=== PATIENT | male | born 1950 | race Caucasian/White ===

== ENCOUNTER 2022-06-26 08:06 | Outpatient (CLI) | payer MEDICARE, SELFPAY ==
--- OUTSIDE RECORDS SUMMARY | 2022-06-26 08:09 | XMS_ITS | Encounter Summary ---
:1950 Author Organization [place] Address [address] [place] [address] Care Team Providers Name Role Phone Joss Winchester MD Primary Care Provider Reason for Visit Rehab Therapy Cardiac Therapy (Routine) - Closed Specialty Diagnoses / Procedures Referred By Contact Refer red To Contact Cardiac Rehab / Diagnoses #3 no show on 03/29. lm to remind of next appt and attendance policy. ST elevation myocardial infarction (STEMI), unspecified artery [facility] C[facility] REH[facility] Procedures TREATMENT [address] [place] [address] [address] [place] [address] Phone: Fax: Referral ID Status Reason Start Date Expiration Date Visits V isits Requested Authorized [facility]- Closed 03/25/2015 08/24/2015 36 36 ([id number]) Encounter Details Date Type Department Care Team Description 04/25/2015 Hospital Encounter [facility] Mykel-Deana Kamara APRN CNP NO INFO AVAILABLE 06/13/2022 Cardiac and Pulmonary 2, Rh [facility] [place] [id number] [place] [address] [address] [place] [address] Social History Tobacco Use Types Packs/Day Years Used Date Smoking Tobacco: Former Cigarettes 1 Quit : 02/07/2015 Alcohol Use Standard Drinks/Week Comments No 0 (1 standard drink = 0.6 oz pure alcoho l) Sex Assigned at Date Recorded Not on file documented as of this encounter Last Filed Vital Signs Vital Sign Reading Time Taken Comments Blood Pressure - - Pulse - - Temperature - - Respiratory Rate - - Oxygen Saturation - - Inhaled Oxygen Concentration - - Weight 87.1 kg (192 lb) 04/25/2015 11:00 AM CDT Height 175.3 cm (5' 9.02) 04/25/2015 11:00 AM CDT Body Mass Index 28.34 04/25/2015 11:00 AM CDT documented in this encounter Medications at Time of Discharge Medication Sig Dispensed Refills Start Date End Date AMITRIPTYLINE HCL PO Take 25 mg by mouth 0 At Bedtime aspirin EC 81 MG EC Take 1 tablet (81 90 tablet 3 5 tabletIndications: ST mg) by mouth daily elevation myocardial infarction (STEMI), unspecified artery (H) nitroglycerin (NITROSTAT) Place 1 tablet (0.4 25 tablet 2 0 02/09/2015 0.4 MG SL mg) under the tabletIndications: ST tongue every 5 elevation myocardial minutes as needed infarction (STEMI), for chest pain unspecified artery (H) atorvastatin (LIPITOR) 40 Take 1 tablet (40 90 tablet 3 04/23/2016 MG tabletIndications: ST mg) by mouth every elevation myocardial evening infarction (STEMI), unspecified artery (H) carvedilol (COREG) 3.125 Take 1 tablet 180 tablet 3 02/10/20 15 05/11/2015 MG tabletIndications: ST (3.125 mg) by mouth elevation myocardial 2 times daily (with infarction (STEMI), meals) unspecified artery (H) lisinopril Take 1 tablet (5 90 tablet 3 02/09/2015 08/01/20 16 (PRINIVIL,ZESTRIL) 5 MG mg) by mouth daily tabletIndications: ST elevation myocardial infarction (STEMI), unspecified artery (H) ticagrelor (BRILINTA) 90 Take 1 tablet (90 60 tablet 01/2305/31/2015 MG tabletIndications: ST mg) by mouth every elevation myocardial 12 hours infarction (STEMI), unspecified artery (H) documented as of this encounter Progress Notes Senthil Mcdonald MD - 04/25/2015 11:41 AM CDT OUTPATIENT CARDIAC REHAB DISCHARGE SUMMARY Name: Neptali Sullivan Date of : 1950 Date of Treatment: 02/07/15 Age: [age] year old Gender: male Treatment Diagnosis: Myocardial Infarction Secondary Treatment Diagnosis: Stent (additional 3 stents placed 02/28/15) Hospital Location: [facility] Hospital Discharge Date: 02/09/15 Outpatient CR Start Date: 02/14/15 Primary Physician: Dr. Winchester Surgeon: Extruding Machine Operator: Dr. Reza Ejection Fraction: 45% THR (85% of age predicted max HR): 131.75 Risk Stratification: Moderate Assessment Assessment: Pt presents s/p DESx1 to OM. He is having a planned intervention to get 2 more stents inhis RCA and distal LAD on 02/28/15. He has had no symptoms since hospital discharge and is feeling great. Stressed importance of carrying nitro with him at all times. Pt to start cardiac rehab for safe progression of exercise and risk factor education. 02/24/15.PT is making steady progress. He will undergo and other PCI intervention on February 28 at [facility]. informed patient that rehab would need an order stating it is OK for him to return to the program and was instructed as to what to do. He plans to return to rehab on March 06. He is a bit distracted by his rotator cuff issue and related workman's comp and physical therapy. [facility] is holding on resistance training until patient consults with Physical Therapy about appropriateness of the exercises. 03/13/15 Progress update done today. PT had an additional 3 stents placed on 02/28/15. He has been feeling good since procedure. Angiogram report states that PT doeshave diffuse disease in small LAD and 40-50 % disease in RCA. Labs were rechecked on 02/28/15 Continue with skilled therapy for increased exercise capacity, risk factor education and behavior change counseling. He will have another echo in a month. He has been walking for just over 1 mile at home. He remains smoke free. He retired last week. 04/05/15 Patient is making good progress within cardiac rehab.He continues to try to make dietary changes to aid in weight loss. Patient increased frequency of home exercise to every day that he is not attending [facility]. He now walks for 20-60 minutes on his off days. Patient continues to benefit from skilled therapy to educate on behavior change and risk management to achieve patient's goals. Pt made significant gains in exercise tolerance. Initially patient tolerated 30 minutes at 3.4 METs,now tolerating 30 minutes at 6.6 METs.The PT was given instructions on frequency, intensity, and duration for continued exercise as well as muscle conditioning and stretching exercises. Your PT plans to continue with a home walking program. He purchased a TM for home use and plans to continue 4 days per week. Patient and Program Goals Monitored sessions attended: 23 MET Goal: 5-6 Current MET Level: 6.6 Goal Pt desires to lose 1-2# per week to reach goal weight of 182#. Target Date 04/25/15 Date Met Progress Towards Goal 02/24/15. PT weight is stable. He reports making a few dietary changes that include decreased sodium, more fish and chicken and less red meat. He states he does a little label reading and occasionally monitors portions. Noncommittal to attending education classes. 03/13/15 Discussed need for education on weight loss. PT feels he has had education in the past, and he knows what he needs to do to lose weight. He is reading food labels, and is working on cutting down on portion sizes and the amount of red meat he is eating. 04/05/15 Patient continues to cut red meat out of his diet.Patient verbalized understanding of healthy cooking options such as steaming vegetables and grilling meats. Patient still feels he has the tools and knowledge he needs to aid in weight loss. Goal Pt desires to increase endurance and stamina to return to walking 3-4 miles a day without symptoms. Target Date 04/25/15 Date Met 04/25/15 Progress Towards Goal 02/24/15. Notes some improvement in endurance. Currently he is walking at home every other day for about 20 minutes covering 1 mile. 03/13/15 PT had additional stents placed on 02/28/15. He has been increasing home walking and is walking over 1 mile at home. 04/05/15 Patient is now able to walk 3-4 miles without feeling sx. Pt reports that he takes these long walks 2-3 days per week. Pain Assessment Patient Currently in Pain: No Pain Location: Pain Rating: Pain Description: Pain Description Comment: Additional Pain Locations?: Pain Location 2: Pain Rating 2: Pain Location 3: Pain Rating 3: Pain Comments: RISK FACTORS Hypertension Hypertension: No Currently taking antihypertensives? Yes Target outcome goal: BP< 140/90 or <130/80 if DM or CKD Outcome Achieved Hypertension comments: Tobacco Tobacco: Recent (Quit < 6 mo ago) Quit date or planned quit date: 02/07/15 Tobacco habit: Cigarettes Tobacco use per day: Interventions planned: Interventions completed: Stages of change: Action Target outcome goal: Complete Smoking Cessation: Outcome Not Achieved Tobacco comments: 02/14 Pt quit smoking the day of his heart attack. he had been a cigarette smoker for about 25 years. He has no desire to return to smoking as of now. He is not using any smoking cessation aids at this point and does not want to use them right now. 02/24/15 Continues to be successful with smoking cessation. Confidence to stay quit is 06/03.03/13/15 No change. PT remains smoke free. t remains smoke free. Stress / Psychosocial Discharge Psychosocial assessment: Re-assessment Patient admits to stress: Yes Current level of stress: Moderate Coping skills: exercise, distraction Patient Health Questionnaire-9 (PHQ-9) for Depression: 5-9 Minimal symptoms 10-14 Minor depression 15-19 Major depression, moderately severe > 20 Major depression, severe Completed PHQ-9 Score: 8 [facility] Function and Health Status Survey: A score of 4-5 indicates deficit for each functional health domain Completed Physical Fitness: 3 Feelings: 3 Daily Activities: 4 Social Activities: 3 Pain: 4 Change in Health: 4 Overall Health: 4 Social Support: 1 Quality of Life: 4 Stages of change: Contemplation Psychosocial interventions planned: Patient to identify 2-3 coping mechanisms for stress, Patient toverbalize understanding of negative impact of stress to personal health Psychsocial interventions completed: Identified 2-3 coping mechanisms for stress, Verbalized understanding of negative impact of stress to personal health Target outcome goal: Assessment for depression using PhQ-9 and [facility] questionnaires. Maximize coping skills and develop positive support system: Outcome Not Achieved Comments: 02/14: Pt says he is under stress from his job. He had tore his rotator cuff and was supposed to go back to work on light duty over a year ago and they did not let him do just light duty so heended up tearing his rotator cuff again. He is now in a lawsuit with his employer and contemplating intermediate. He does not have any coping mechanisms he uses for stress at this time, and denies need for any at this point in time. 02/24/15. Denies stress. Admitted he is bothered by his work injury to his shoulder and dealing with worker's comp and physical therapy over the past 2 years. He has an arbitration meeting on February 28. 03/13/15 PT has decided to retire. He is now done with work. He also feels that lawsuit will be done soon, and both of these circumstances will help to reduce stress. 04/05/15 Patient continues to feel stressed. He recently retired and is now completing all of paperwork that goes along with the process. Patient said that he either exercises or uses distraction by playing with grandchildren when he feels stressed. 04/25/15 PT has retired, and feels stress levels wail be very well managed. Nutrition Discharge Dietary assessment: Re-assessment Rate Your Plate - Heart Survey: Scores range from 24 to 72. The higher the score the healthier the eating choices. 52 Overweight / Obesity: Yes Age: 64 Weight: 87.091 kg (192 lb) Height: 175.3 cm (5' 9.02) BMI (Calculated): 28.4 Goal weight: 82.645 kg (182 lb 3.2 oz) Prescribed diet: Low Sodium, Low Cholesterol, Low Fat Follows prescribed diet: 60 - 79% Stages of change to prescribed diet: Action Nutrition interventions planned: Educate on Weight Loss Principles, Initiate Plan for Weight Loss/Weight Maintenance, Assist with Weight Loss of 1-2 lb per week, Attend Diet Classes Nutrition interventions completed: Target outcome goal: BMI < 25: Outcome Not Achieved Comments: 02/14: Pt says he has made some changes to his diet since discharging from the hospital. Hewent grocery shopping yesterday and picked up fruits, vegetables, and fish. He is watching sodium intake and is actively trying to follow the mediterranean diet. He had done this s/p stent in 1998, butfell off of it after awhile because it got old. 02/24/15. See goals. 04/05/15 see goals section. Cholesterol Cholesterol: Labs Available Date: 02/28/15 Total Cholesterol: 164 HDL: 36 LDL: 87 Triglycerides: 203 Target outcome goal: Total cholesterol <150, HDL >40 M >50 F, LDL < 70, Trig < 150: Outcome Not Achieved Comments: 02/24/15. Did not review. 04/05/2015 Reviewed cholesterol values with patient. Patient verbalized understanding of the negative effects of high cholesterol values. 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 He is currently on light duty becauseof his shoulders, but he still walks 2-3 miles at work each night. He sometimes walks at home outside for exercise, but this is not always regular. 02/24/15. PT has started walking for exercise every other day for 20 minutes. 04/05/15 Pt now walks 20-60 minutes on his off days of rehab. INDIVIDUALIZED TREATMENT PLAN Monitored sessions scheduled: 18 Monitored sessions attended: 23 Exercise Reassessment Discharge 6 Minute Walk Distance: 6 Minute Walk Predicted (Male): 1765.05 6 Minute Walk Predicted (Female): 1513.16 Met Level Achieved: 6.6 Resting HR: 77 bpm Exercise HR: 99 bpm Post Exercise HR: 67 bpm Resting BP: 120/80 mmHg Exercise BP: 142/70 mmHg Post Exercise BP: 102/72 mmHg Pre SpO2: While Exercising SpO2: Post SpO2: Pre BG (if applicable): Post BG (if applicable): RPE: 5 ECG Rhythm: Normal sinus rhythm Ectopy: None Symptoms at home: Denies symptoms Symptoms in rehab: Denies symptoms Limitations: Pt has 5# limitation for both shoulders (h/o rotator cuff tears/repairs, will need eventual shoulder replacement) Exercise Prescription Type: Aerobic exercise, Flexibility training Mode: Treadmill, NuStep Frequency: 3 days week Duration/Time: 30-45 min Age: 64 THR (85% of age predicted max HR): 131.75 RPE recommended: Other (see comments) (4-6 OMNI) Progression: Progress up to 1/4 to 1/2 MET per week as BP, HR and tolerance allow. Angina with exercise: No Resistance Training: No Comments: 02/24/15. Hold on resistance training until cleared by physical therapy for rotator cuff injury. Current Home Exercise Type of Exercise: Walking Frequency (days per week): 3-4 (off days of rehab) Duration (minutes per session): 20-60 Recommended Home Exercise Prescription Type of Exercise: Walking Frequency (days per week): on days not at rehab Duration (minutes per session): 30-45 min RPE recommended: Other (see comments) (4-6 OMNI) Recommended THR: none given Comments/Exercise plan: Patient Education Education Attended: Physician cosignature/electronic signature indicates agreement with the ITP document and approval ofdischarge. documented in this encounter Plan of Treatment Not on filedocumented as of this encounter Visit Diagnoses Not on filedocumented in this encounter Care Teams Data Base Design Analyst Relationship Specialty Start Date End Date Joss Winchester MD PCP - General Internal Medicine 02/14/15 [facility] [place] [address] documented as of this encounter
--- OUTSIDE RECORDS SUMMARY | 2022-06-26 08:09 | XMS_ITS | Encounter Summary ---
:1950 Author Organization [place] Address [address] [place] [address] Care Team Providers Name Role Phone Joss Winchester MD Primary Care Provider Reason for Visit Rehab Therapy Cardiac Therapy (Routine) - Closed Specialty Diagnoses / Procedures Referred By Contact Refer red To Contact Cardiac Rehab / Diagnoses #3 no show on 03/29. lm to remind of next appt and attendance policy. ST elevation myocardial infarction (STEMI), unspecified artery [facility] CARDIAC REH[facility] Procedures TREATMENT [address] [place] [address] [address] [place] [address] Phone: Fax: Referral ID Status Reason Start Date Expiration Date Visits V isits Requested Authorized [facility]- Closed 03/25/2015 08/24/2015 36 36 ([id number]) Encounter Details Date Type Department Care Team Description 04/21/[address] [facility] Mykel-Deana Kamara APRN CNP NO INFO AVAILABLE 06/13/2022 Cardiac and Pulmonary 1, Rh Cardiac Rehab Rehabilitation [place] [id number] [place] [address] [address] [place] [address] Social History Tobacco Use Types Packs/Day Years Used Date Smoking Tobacco: Former Cigarettes 1 Quit : 02/07/2015 Alcohol Use Standard Drinks/Week Comments No 0 (1 standard drink = 0.6 oz pure alcoho l) Sex Assigned at Date Recorded Not on file documented as of this encounter Medications at Time of Discharge [...] 90 Take 1 tablet (90 60 tablet 11 01/2305/31/2015 MG tabletIndications: ST mg) by mouth every elevation myocardial 12 hours infarction (STEMI), unspecified artery (H) documented as of this encounter Plan of Treatment Not on filedocumented as of this encounter Visit Diagnoses Not on filedocumented in this encounter Care Teams Tub Mender Relationship Specialty Start Date End Date Joss Winchester MD PCP - General Internal Medicine 02/14/15 [place] [address] documented as of this encounter
--- OUTSIDE RECORDS SUMMARY | 2022-06-26 08:09 | XMS_ITS | Encounter Summary ---
:1950 Author Organization [place] Address [address] [place] [address] Care Team Providers Name Role Phone Joss Winchester MD Primary Care Provider Encounter Details Date Type Department Care Team Description 04/22/2016 Orders Only [facility] nary artery disease [facility] [place] involving saxman coronary [address] [facility] [address] rtery of saxman heart 140 [place] [address] Social History Tobacco Use Types Packs/Day Years Used Date Smoking Tobacco: Former Cigarettes 1 Quit : 02/07/2015 Alcohol Use Standard Drinks/Week Comments No 0 (1 standard drink = 0.6 oz pure alcoho l) Sex Assigned at Date Recorded Not on file documented as of this encounter Plan of Treatment Not on filedocumented as of this encounter Procedures Procedure Name Priority Date/Time Associated Diagnosis Comme nts LIPID PROFILE Routine 04/22/2016 4:24 PM Coronary artery Resul ts for this CDT disease involving procedure are in saxman coronary the results artery of saxman section. heart without angina pectoris ALT Routine 04/22/2016 4:24 PM Coronary artery Result s for this CDT disease involving procedure are in saxman coronary the results artery of saxman section. heart without angina pectoris BASIC METABOLIC Routine 04/22/2016 4:24 PM Coronary artery Res ults for this PANEL CDT disease involving procedure are in saxman coronary the results artery of saxman section. heart without angina pectoris documented in this encounter Results (ABNORMAL) Basic metabolic panel (04/22/2016 4:24 PM CDT) athologist Signature Sodium 138 133 - 144 [place] mmol/L [facility] Potassium 4.6 3.4 - 5.3 [place] mmol/L [facility] Chloride 105 94 - 109 [place] mmol/L [facility] Carbon Dioxide 30 20 - 32 [place] mmol/L [facility] Anion Gap 3 3 - 14 [place] mmol/L [facility] Glucose 104 (H) 70 - 99 [place] mg/dL [facility] Urea Nitrogen 9 7 - 30 [place] mg/dL [facility] Creatinine 0.90 0.66 - [place] 1.25 mg/dL [facility] GFR Estimate 85 >60 [place] mL/min/1.[address] Comment: Non GFR Calc GFR Estimate If Black >90 >60 mL/min/1.7m2 F [facility] [place][NOTE 2] GFR Calc HOSP ITAL Calcium 9.0 8.5 - 10.1 mg/dL [facility] Specimen Anatomical Collection Method Collection Time Receive d Time (Source) Location / / Volume Laterality Blood specimen 04/22/2016 4:24 PM 016 4:28 (specimen) CDT PM CDT Crystal Houston APRN, CNP LAB - BLOOD ORDERABLES Performing Organization Address City/State/ZIP Code Phon e Number M [facility] [address] [place], [place] [address] [place] [address] [address] [place] [address] [address], [facility] [phone] ALT (04/22/2016 4:24 PM CDT) P athologist Signature ALT 36 0 - 70 U/L [facility] Specimen Anatomical Collection Method Collection Time Receive d Time (Source) Location / / Volume Laterality Blood specimen 04/22/2016 4:24 PM 016 4:28 (specimen) CDT PM CDT Crystal Houston APRN, CNP LAB - BLOOD ORDERABLES Performing Organization Address City/[facility] Phon e Number [facility] [address] [place], [place] [address] [facility] [address] [place], [place] [address] [address], [facility] [phone] (ABNORMAL) Lipid Profile (04/22/2016 4:24 PM CDT) P athologist Signature Cholesterol 215 (H) <200 mg/dL [facility] Comment: Desirable: <200 mg/dl Triglycerides 321 (H) <150 mg/dL [facility] Comment: Borderline high: ??150-199 mg/dl High: ? 200-499 mg/dl Very high: ? >499 mg/dl HDL Cholesterol 33 (L) >39 mg/dL [facility] LDL Cholesterol Calculated 118 (H) <100 mg/dL [facility] Comment: Above desirable: ??100-129 mg/dl Borderline High: ??130-159 mg/dL High: ? 160-189 mg/dL Very high: ? >189 mg/dl Non HDL Cholesterol 182 (H) <130 mg/dL [facility] Comment: Above Desirable: ??130-159 mg/dl Borderline high: ??160-189 mg/dl High: ? 190-219 mg/dl Very high: ? >219 mg/dl Specimen Anatomical Collection Method Collection Time Receive d Time (Source) Location / / Volume Laterality Blood specimen 04/22/2016 4:24 PM 016 4:28 (specimen) CDT PM CDT Crystal Buck Celso JEAN RN PALLIATIVE LAB - BLOOD ORDERABLES Performing Organization Address City/State/ZIP Code Phon e Number M [facility] [address] [place] [address] [facility] [address] [phone] documented in this encounter Visit Diagnoses Diagnosis Coronary artery disease involving saxman coronary artery of saxman heart without angina pectoris documented in this encounter Care Teams Turfgrass Management Professor Relationship Specialty Start Date End Date Joss Winchester MD PCP - General Internal Medicine 02/14/15 [facility] [address] [facility] [address] documented as of this encounter
--- OUTSIDE RECORDS SUMMARY | 2022-06-26 08:09 | XMS_ITS | Encounter Summary ---
:1950 Author Organization [place] Address [address] [place] [address] Care Team Providers Name Role Phone Joss Winchester MD Primary Care Provider Reason for Visit Reason Onset Date Comments Refill Request 05/31/2015 Encounter Details Date Type Department Care Team Description 05/31/[address] [facility] Chan Seals, RN Refill Request Clinic [place] [address] [place] [address] Social History Tobacco Use Types Packs/Day Years Used Date Smoking Tobacco: Former Cigarettes 1 Quit : 02/07/2015 Alcohol Use Standard Drinks/Week Comments No 0 (1 standard drink = 0.6 oz pure alcoho l) Sex Assigned at Date Recorded Not on file documented as of this encounter Plan of Treatment Not on filedocumented as of this encounter Visit Diagnoses Diagnosis CAD (coronary artery disease) - Primary Coronary atherosclerosis of unspecified type of vessel, [place] or graft documented in this encounter Care Teams Senior Cobol Developer Relationship Specialty Start Date End Date Joss Winchester MD PCP - General Internal Medicine 02/14/15 [facility] [place] [address] documented as of this encounter
--- OUTSIDE RECORDS SUMMARY | 2022-06-26 08:09 | XMS_ITS | Encounter Summary ---
:1950 Author Organization [place] Address [address] [place] [address] Care Team Providers Name Role Phone Joss Winchester MD Primary Care Provider Reason for Visit Reason Onset Date Comments No Show 05/05/2018 - Closed Specialty Diagnoses / Procedures Referred By Contact Refer red To Contact Diagnoses Coronary artery disease involving chilkat coronary artery of chilkat heart without angina pectoris [place] January, [facility] REP [id number] [place] [id number] Referral ID Status Reason Start Date Expiration Date Visits Requ ested Visits Authorized [id number] Closed 04/22/2017 04/22/2018 1 1 Encounter Details Date Type Department Care Team Description 09/01/2017 Office Visit [facility] [place] January, [facility] REP [phone] [place] [id number] NO SHOW (Primary Dx) Heart Clinic Torres Reza MD [address] [place] [phone] [place] [address] Social History Tobacco Use Types Packs/Day Years Used Date Smoking Tobacco: Former Cigarettes 1 Quit : 02/07/2015 Alcohol Use Standard Drinks/Week Comments No 0 (1 standard drink = 0.6 oz pure alcoho l) Sex Assigned at Date Recorded Not on file documented as of this encounter Progress Notes Jessica More 05/05/2018 9:48 AM CDT This patient was a no show for this scheduled appointment. documented in this encounter Plan of Treatment Not on filedocumented as of this encounter Visit Diagnoses Diagnosis NO SHOW - Primary documented in this encounter Care Teams Transit Mix Operator Relationship Specialty Start Date End Date Joss Winchester MD PCP - General Internal Medicine 02/14/15 [facility] [place] [address] documented as of this encounter
--- OUTSIDE RECORDS SUMMARY | 2022-06-26 08:09 | XMS_ITS | Encounter Summary ---
:1950 Author Organization [facility] Address [address] [place] [address]. [place] [address] Care Team Providers Name Role Phone Joss Winchester MD Primary Care Provider Reason for Visit Reason Comments Annual Visit Annual visit w/Dr. Juaquin pantoja or CAD Coronary Artery Disease Encounter Details Date Type Department Care Team Description 11/07/2017 Office Visit [facility] Mel Reza, Mixed hyperlipidemia (Primary Dx); Heart Clinic Coronary artery disease involving [place] coronary artery of [place] heart without angina pectoris; [address] Smoker - former [id number] [facility] [address] [place] [address] Social History Tobacco Use Types Packs/Day Years Used Date Smoking Tobacco: Former Cigarettes 1 Quit : 02/07/2015 Smokeless Tobacco: Never Alcohol Use Standard Drinks/Week Comments No 0 (1 standard drink = 0.6 oz pure alcoho l) Sex Assigned at Date Recorded Not on file documented as of this encounter Last Filed Vital Signs Vital Sign Reading Time Taken Comments Blood Pressure 142/80 11/07/2017 7:30 AM CDT Pulse 80 11/07/2017 7:30 AM CDT Temperature - - Respiratory Rate - - Oxygen Saturation - - Inhaled Oxygen Concentration - - Weight 85.7 kg (189 lb) 11/07/2017 7:30 AM CDT Height 175.3 cm (5' 9) 11/07/2017 7:30 AM CDT Body Mass Index 27.91 11/07/2017 7:30 AM CDT documented in this encounter Progress Notes Mel Reza MD - 11/07/2017 8:20 AM CDT Service Date: 11/07/2017 HISTORY OF PRESENT ILLNESS: I got together with Naldo Bender today who is 67. Naldo was admitted in 01/2016 with unstable angina. He was found to have a thrombotic high-grade stenosis of his mid left circumflex followed by stenting of his LAD and RCA. Since that time he has taken his medicines faithfully. He stopped smoking and has really done a marvelous job of personal care. Naldo is single. He is not working because of degenerative arthritis and pain of his right shoulder. He denies chest pain, palpitations, shortness of breath, dizziness or syncope. He walks a couple miles a day year round and generally feels well when he does so. He gets his medications and lab work followed up at the [facility]. CURRENT MEDICATIONS: 1. Lisinopril 5 mg daily. 2. Atorvastatin 80 mg at bedtime. 3. Carvedilol 25 mg b.i.d. 4. Aspirin 81 mg a day. He also takes Ultram and amitriptyline. PHYSICAL EXAMINATION: GENERAL: Well-developed, well-nourished, faintly overweight male at 189 pounds. VITAL SIGNS: Blood pressure 140/80, heart rate 80. HEAD AND NECK: Normal. Carotids were equal, no bruits heard. HEART: Regular without gallop or murmur. LUNGS: Clear. ABDOMEN: Soft without organomegaly, mass or bruit. EXTREMITIES: Free of edema. Pedal pulses were not checked today. IMPRESSION: 1. Asymptomatic coronary artery disease. 2. Post 3-vessel coronary artery stenting. 3. Former smoker, having stopped in 2015. 4. Treated hyperlipidemia. 5. Mild ischemic cardiomyopathy, LVEF of 45% by echo in 2014. PLAN: I made no changes. I did not order any tests. I did not order any studies. I suggested he return in 2 years or as needed. [facility]. Over 35 minutes was spent doing the consult with review of old records, imaging. cc: Joss Winchester MD [facility] [address] [facility] [address] [place] [address] MEL REZA MD, FACC MT: ANASTACIA Name: NEPTALI SULLIVAN Account: [id number] : 1950 Service Date: 11/07/2017 Document: [id number] Mel Reza MD - 11/07/2017 7:45 AM CDT Hx CAD (STEMI), Stents-Left circumflex, staged procedure to mLAD and mRCA, Hyperlipidemia, Chronic Smoker, Mild ischemic CM, Metabolic Syndrome, and Mixed HLD. 11/07/17 Annual visit w/Dr. Reza for CAD, rescheduled from missed appt 09/01/17. BMP, FLP and ALT to be done prior to OV. No new testing or ER visits. Requested PMD records (Joss Winchester, from the [facility]). These records are now been scanned into [facility] Notes. Pt was originally scheduled to see on 06/13/17. FRANKLIN Arzate HPI and Plan: See dictation No orders of the defined types were placed in this encounter. No orders of the defined types were placed in this encounter. There are no discontinued medications. No diagnosis found. CURRENT MEDICATIONS: Current Outpatient Prescriptions Medication Sig Dispense Refill ??? lisinopril (PRINIVIL/ZESTRIL) 5 MG tablet Take 1 tablet (5 mg) by mouth daily 90 tablet 3 ??? atorvastatin (LIPITOR) 80 MG tablet Take 1 tablet (80 mg) by mouth every evening 90 tablet 3 ??? carvedilol (COREG) 25 MG tablet Take 1 tablet (25 mg) by mouth 2 times daily (with meals) 180 tablet 3 ??? traMADol (ULTRAM) 50 MG tablet Take 50 mg by mouth every 6 hours as needed for moderate pain ??? UNABLE TO FIND Volproic acid 250 MD ??? aspirin EC 81 MG EC tablet Take 1 tablet (81 mg) by mouth daily 90 tablet 3 ??? nitroglycerin (NITROSTAT) 0.[address] 1 tablet (0.4 mg) under the tongue every 5 minutes as needed for chest pain 25 tablet 2 ??? AMITRIPTYLINE HCL PO Take 25 mg by mouth At Bedtime ALLERGIES No Known Allergies PAST MEDICAL HISTORY: Past Medical History: Diagnosis Date ??? CAD (coronary artery disease) 2015 Stents ??? Cardiomyopathy (H) ??? Hyperlipidemia ??? Metabolic syndrome ??? Migraine ??? Smoker ??? STEMI (ST elevation myocardial infarction) (H) 2015 Inferior PAST SURGICAL HISTORY: Past Surgical History: Procedure Laterality Date ??? ORTHOPEDIC SURGERY ??? STENT, CORONARY, S660 02-07-15 Thrombectomy RIZWAN CX ??? STENT, CORONARY, S660 02-28-15 RIZWAN -LAD, RCA FAMILY HISTORY: Family History Problem Relation Age of Onset ??? Asthma Father SOCIAL HISTORY: Social History Social History ??? Marital status: Spouse name: N/A ??? Number of children: N/A ??? Years of education: N/A Social History Main Topics ??? Smoking status: Former Smoker Packs/day: 1.00 Quit date: 02/07/2015 ??? Smokeless tobacco: Never Used ??? Alcohol use No ??? Drug use: None ??? Sexual activity: Not Asked Other Topics Concern ??? Caffeine Concern No 1-2 coffee daily ??? Sleep Concern No ??? Special Diet No ??? Exercise Yes 3 days per week Social History Narrative Review of Systems: Skin: Negative for Eyes: Negative for ENT: Negative for Respiratory: Negative Cardiovascular: Negative Gastroenterology: Positive for Genitourinary: Negative for Musculoskeletal: Positive for arthritis;neck pain Neurologic: Positive for migraine headaches Psychiatric: Heme/Lymph/Imm: Negative for Endocrine: Negative Physical Exam: Vitals: BP 142/80 Pulse 80 Ht 1.753 m (5' 9) Wt 85.7 kg (189 lb) BMI 27.91 kg/m2 Constitutional: cooperative;in no acute distress Skin: warm and dry to the touch Head: normocephalic Eyes: pupils equal and round;sclera white Lymph: ENT: no pallor or cyanosis Neck: JVP normal Respiratory: clear to auscultation;normal symmetry Cardiac: regular rhythm;normal S1 and S2;no murmurs, gallops or rubs detected S4 no presence of murmur pulses full and equal 2+ 2+ right femoral puncture site without bleed/bruit. soft small hematoma around site GI: abdomen soft;no masses;non-tender Extremities and Muscular Skeletal: no edema right radial pulse palpable without audible bruit Neurological: affect appropriate Psych: oriented to time, person and place Recent Lab Results: LIPID RESULTS: Lab Results Component Value Date CHOL 215 (H) 04/22/2016 HDL 33 (L) 04/22/2016 LDL 118 (H) 04/22/2016 TRIG 321 (H) 04/22/2016 CHOLHDLRATIO 4.6 03/08/2015 LIVER ENZYME RESULTS: Lab Results Component Value Date AST 21 02/07/2015 ALT 36 04/22/2016 CBC RESULTS: Lab Results Component Value Date WBC 4.9 03/01/2015 RBC 4.49 03/01/2015 HGB 13.5 03/01/2015 HCT 39.9 (L) 03/01/2015 MCV 89 03/01/2015 MCH 30.1 03/01/2015 MCHC 33.8 03/01/2015 RDW 15.0 03/01/2015 PLT 216 03/01/2015 BMP RESULTS: Lab Results Component Value Date NA 138 08/22/2016 POTASSIUM 4.3 08/22/2016 CHLORIDE 103 08/22/2016 CO2 28 08/22/2016 ANIONGAP 7 08/22/2016 GLC 103 (A) 08/22/2016 BUN 11 08/22/2016 CR 1.0 08/22/2016 GFRESTIMATED >60 08/22/2016 GFRESTBLACK >90 GFR Calc 04/22/2016 LUCRECIA 9.3 08/22/2016 A1C RESULTS: No results found for: A1C INR RESULTS: Lab Results Component Value Date INR 0.95 02/27/2015 INR 0.90 02/07/2015 CC Joss Winchester MD [facility] [place] [id number] documented in this encounter Plan of Treatment Not on filedocumented as of this encounter Visit Diagnoses Diagnosis Mixed hyperlipidemia - Primary Coronary artery disease involving [place] coronary artery of [place] heart without angina pectoris Smoker - former Tobacco use disorder documented in this encounter Care Teams Chipping Machine Operator Relationship Specialty Start Date End Date Joss Winchester MD PCP - General Internal Medicine 02/14/15 [facility] [place] [id number] documented as of this encounter
--- OUTSIDE RECORDS SUMMARY | 2022-06-26 08:09 | XMS_ITS | Encounter Summary ---
:1950 Author Organization [place] Address [address] [place] [address]. [place] [address] Care Team Providers Name Role Phone Joss Winchester MD Primary Care Provider Encounter Details Date Type Department Care Team Description 08/29/2017 Documentation Only [facility] Heart Torres Perkins MD [address] [place] [phone] (Wo rk) Social History Tobacco Use Types Packs/Day Years [...] on filedocumented in this encounter Care Teams Rotary Filter Operator Relationship Specialty Start Date End Date Joss Winchester MD PCP - General Internal Medicine 02/14/15 [facility] [place] [id number] documented as of this encounter
--- OUTSIDE RECORDS SUMMARY | 2022-06-26 08:09 | XMS_ITS | Encounter Summary ---
:1950 Author Organization [facility] Address [address] [place] [address]. [place] [address] Care Team Providers Name Role Phone Joss Winchester MD Primary Care Provider Reason for Visit Reason Comments Other lipids needed after statin i ncreased in March 2016. Encounter Details Date Type Department Care Team Description 09/24/2016 Documentation Only [facility] Servando Abbott (lipids needed Heart Clinic Yulisa Buck RN after statin [address] [facility] [phone] increase. .. [facility] [address] (Fax) [place] [address] Social History Tobacco Use Types Packs/Day Years Used Date Smoking Tobacco: Former Cigarettes 1 Quit : 02/07/2015 Alcohol Use Standard Drinks/Week Comments No 0 (1 standard drink = 0.6 oz pure alcoho l) Sex Assigned at Date Recorded Not on file documented as of this encounter Progress Notes Malina Watts RN - 09/25/2016 10:09 AM CST Phone call received from Shane, [facility]. States that [facility]. He did have BMP's. Will send the last BMP results. Patient called. States he was sure they must have done that lab prior to his shoulder surgery. [facility] that [facility] and that this was needed to assess how the increase in thehe statin in March 2016. Stated he will have a f/u OV with his PMD at the [facility] in about 8 days. He will see if they will do theLipids and ALT and to send us the results. If they need an order, gave him our phone number to call and we will fax them the order. Verbalized understanding. IER GREETER Alicia Abbott RN - 09/24/2016 3:34 PM CST Overdue orders: lipids were due in June, per dictation patient to have at the [facility]. Faxed records request. Order date extended. IER GREETER documented in this encounter Plan of Treatment Not on filedocumented as of this encounter Visit Diagnoses Not on filedocumented in this encounter Care Teams Seconds Handler Relationship Specialty Start Date End Date Joss Winchester MD PCP - General Internal Medicine 02/14/15 [facility] [place] [id number] documented as of this encounter
--- OUTSIDE RECORDS SUMMARY | 2022-06-26 08:09 | XMS_ITS | Clinical Summary ---
:1950 Author Organization [place] Address [address] [place] [address] Care Team Providers Name Role Phone Joss Winchester MD Primary Care Provider Allergies No known active allergies Medications Medication Sig Dispensed Refills Start Date End Date Status AMITRIPTYLINE HCL PO Take 25 mg by 0 Active mouth At Bedtime aspirin EC 81 MG EC Take 1 tablet 90 tablet 3 02/09/2015 Active tabletIndications: ST (81 mg) by mouth elevation myocardial daily infarction (STEMI), unspecified artery (H) nitroglycerin Place 1 tablet 25 tablet 2 02/09/2015 Active (NITROSTAT) 0.4 MG SL (0.4 mg) under tabletIndications: ST the tongue every elevation myocardial 5 minutes as infarction (STEMI), needed for chest unspecified artery (H) pain traMADol (ULTRAM) 50 MG Take 50 mg by 0 Active tablet mouth every 6 hours as needed for moderate pain UNABLE TO FIND Volproic acid 0 A ctive 250 lisinopril Take 1 tablet (5 90 tablet 3 08/01/2016 A ctive (PRINIVIL/ZESTRIL) 5 MG mg) by mouth tabletIndications: ST daily elevation myocardial infarction (STEMI), unspecified artery (H) atorvastatin (LIPITOR) Take 1 tablet 90 tablet 3 08/01/2016 Active 80 MG (80 mg) by mouth tabletIndications: ST every evening elevation myocardial infarction (STEMI), unspecified artery (H) carvedilol (COREG) 25 Take 1 tablet 180 tablet 3 08/01/2016 Active MG tabletIndications: (25 mg) by mouth ST elevation myocardial 2 times daily infarction (STEMI), (with meals) unspecified artery (H), Atherosclerosis of [place] coronary artery of [place] heart without angina pectoris Active Problems Problem Noted Date Atherosclerosis of [place] coronary artery of [place] he art without angina 05/08/2015 pectoris Percutaneous transluminal coronary angioplasty (PTCA) within last 14 to 24 03/01/2015 months Hematoma following angiography 02/28/2015 STEMI (ST elevation myocardial infarction) 02/08/2015 CAD (coronary artery disease) Hyperlipidemia Smoker - former Metabolic syndrome Immunizations Name Administration Dates Next Due Pneumococcal 23 valent 02/09/2015 Family History Medical History Relation Comments Asthma Father Relation Status Comments Father (Age 61) asthma Mother (Age 58) hep C Social History Tobacco Use Types Packs/Day Years Used Date Smoking Tobacco: Former Cigarettes 1 Quit : 02/07/2015 Smokeless Tobacco: Never Tobacco Cessation: Counseling Given: Yes Alcohol Use Standard Drinks/Week Comments No 0 (1 standard drink = 0.6 oz pure alcoho l) Sex Assigned at Date Recorded Not on file Last Filed Vital Signs Vital Sign Reading Time Taken Comments Blood Pressure 142/80 11/07/2017 7:30 AM CDT Pulse 80 11/07/2017 7:30 AM CDT Temperature 36.6 ??C (97.9 ??F) 03/01/2015 8:00 AM CDT Respiratory Rate 19 03/01/2015 9:00 AM CDT Oxygen Saturation 97% 08/01/2016 10:01 AM TWENTY ONE DEALER Inhaled Oxygen Concentration - - Weight 85.7 kg (189 lb) 11/07/2017 7:30 AM CDT Height 175.3 cm (5' 9) 11/07/2017 7:30 AM CDT Body Mass Index 27.91 11/07/2017 7:30 AM CDT Plan of Treatment Not on file Insurance Payer Benefit Plan Subscriber ID Effective Phone Address Typ e / Group Dates MEDICARE MEDICARE [id number] 2014-Alan [phone] ATTN CLAIM S Medicare nt [address] [place] [address] [employer]CIAL [employer] [id number] 2015-Alan DAUGHERTY In [facility] CLAIMS [employer] [place], [place] [address] Care Teams Assembler Truck Trailer Relationship Specialty Start Date End Date Joss Winchester MD PCP - General Internal Medicine 02/14/15 [facility] [place] [id number]
--- OUTSIDE RECORDS SUMMARY | 2022-06-26 08:09 | XMS_ITS | Encounter Summary ---
:1950 Author Organization [facility] Address [address] [place] [address] Care Team Providers Name Role Phone Joss Winchester MD Primary Care Provider Reason for Visit Reason Comments Other Encounter Details Date Type Department Care Team Description 11/28/2015 Telephone [facility] Chan Seals, RN [address] [place] [address] Social History Tobacco Use Types Packs/Day Years Used Date Smoking Tobacco: Former Cigarettes 1 Quit : 02/07/2015 Alcohol Use Standard Drinks/Week Comments No 0 (1 standard drink = 0.6 oz pure alcoho l) Sex Assigned at Date Recorded Not on file documented as of this encounter Miscellaneous Notes Telephone Encounter - Chan Seals, RN - 11/30/2015 10:17 AM CDT Patient returned call.He is having MRI on shoulder and was told they could not do this because of his stents. I told him that stents are compatible with MRI imaging. He was relieved to know this and will call his PMD back about this. Franklin Whitley Telephone Encounter - Chan Seals RN - 11/28/2015 2:06 PM CDT Left message with patient delvin;l team 3 at either [phone] or [phone] to discuss his question concerningMRI. I reviewed chart and see no future orders or notes regarding this. He is past due to see Dr. Reza ( 10/2015). FRANKLIN Whitley Telephone Encounter - Chan Seals RN - 11/28/2015 2:06 PM CDT ----- Message from Christal Lazar RN sent at 11/28/2015 1:57 PM CDT ----- Regarding: Questions regarding MRI Yan bañuelos- I got a VM on CORE phone number from this patient. He see's Dr. Reza and Crystal Houston NP.He said he had questions on a MRI. Last saw Dr. Reza in the fall. I see no orders for MRI and no notes in EPIC. Can you call him please. I am not sure how he got CORE line. Thanks! documented in this encounter Plan of Treatment Not on filedocumented as of this encounter Visit Diagnoses Not on filedocumented in this encounter Care Teams Rehab Services Aide Relationship Specialty Start Date End Date Joss Winchester MD PCP - General Internal Medicine 02/14/15 [facility] [place] [id number] documented as of this encounter
--- OUTSIDE RECORDS SUMMARY | 2022-06-26 08:09 | XMS_ITS | Encounter Summary ---
:1950 Author Organization [facility] Address [address] [place] [address]. [place] [address] Care Team Providers Name Role Phone Joss Winchester MD Primary Care Provider Reason for Visit Reason Onset Date Comments Previsit 07/29/2016 Encounter Details Date Type Department Care Team Description 07/29/2016 PRE VISIT [facility] Heart Torres Reza MD Previsit Clinic [address] [address] [place] [address] [address] [place] [address] [phone] Social History Tobacco Use Types Packs/Day Years [...] on filedocumented in this encounter Care Teams Property Staff Accountant Relationship Specialty Start Date End Date Joss Winchester MD PCP - General Internal Medicine 02/14/15 [facility] [place] [id number] documented as of this encounter
--- OUTSIDE RECORDS SUMMARY | 2022-06-26 08:09 | XMS_ITS | Encounter Summary ---
:1950 Author Organization [place] Address [address] [place] [address] Care Team Providers Name Role Phone Joss Winchester MD Primary Care Provider Encounter Details Date Type Department Care Team Description 11/11/2016 Orders Only [facility], Provider CAD (c oronary artery [facility] [place] Not In disease) (Primary Dx) Laboratory [address] [facility] [address] [place] [address] Social History Tobacco Use Types Packs/Day Years [...] Name Priority Date/Time Associated Diagnosis Comme nts BASIC METABOLIC PANEL Routine 08/22/2016 Result s for this procedure are i n the results section . documented in this encounter Results (ABNORMAL) Basic metabolic panel (08/22/2016) [facility] Method Time Signature Sodium 138 136 - 145 [facility] mmol/L [facility] Potassium 4.3 3.5 - 5.0 [facility] mmol/L [facility] Chloride 103 103 mmol/L [facility] Carbon Dioxide 28 21 - 32 [facility] mmol/L [facility] Anion Gap 7 5 - 15 [facility] mmol/L [facility] Glucose 103 (A) 70 - 99 [facility] mg/dL [facility] Urea Nitrogen 11 8 - 26 [facility] mg/dL [facility] Creatinine 1.0 0.7 - 1.2 [facility] mg/dL [facility] Calcium 9.3 8.5 - 10.1 [facility] mg/dL [facility] GFR Estimate >60 >60 [facility] ml/min/1.[address] GFR Estimate If ml/min/1.7 [facility] Black [address] [place] [address] Specimen (Source) Anatomical Location Collection Method / Collectio n Time Received Time / Laterality Volume Blood specimen 08/22/2016 (specimen) Patient Reported LAB - BLOOD ORDERABLES Performing Organization Address City/State/[place] [address] documented in this encounter Visit Diagnoses Diagnosis CAD (coronary artery disease) - Primary Coronary atherosclerosis of unspecified type of vessel, [place] or graft documented in this encounter Care Teams Bean Sorter Relationship Specialty Start Date End Date Joss Winchester MD PCP - General Internal Medicine 02/14/15 [facility] [address] documented as of this encounter
--- OUTSIDE RECORDS SUMMARY | 2022-06-26 08:09 | XMS_ITS | Encounter Summary ---
:1950 Author Organization [facility] Address [address] [place] [id number] Care Team Providers Name Role Phone Joss Winchester MD Primary Care Provider Reason for Visit Reason Comments Heart Problem CAD (STEMI), Stents-Left cir cumflex, LAD and RCA, Hyperlipidemia, Chronic Smoker, Mild CM (res olved), Metabolic Syndrome, and HLD. - Closed Specialty Diagnoses / Procedures Referred By Contact Refer red To Contact Diagnoses ST elevation myocardial infarction (STEMI), unspecified artery (H) Coronary artery disease involving klawock coronary artery of klawock heart without angina pectoris Mixed hyperlipidemia Tobacco abuse Torres Reza MD [address] [place] [phone] Referral ID Status Reason Start Date Expiration Date Visits Requ ested Visits Authorized [id number] Closed 02/05/2016 02/04/2017 1 1 Encounter Details Date Type Department Care Team Description 04/22/2016 Office Visit [facility] Torres Reza MD [address] [place] [phone] [address] elevation myocardial infarction (STEM I), unspecified artery (H); [facility], JanuaryN TELEPHONER [address] [place] [address] Coronary artery disease involving klawock coronary artery of klawock heart without angina pectoris; [place] Mixed hyperlipidemia; [address] [facility] Tobacco abuse [address] [place] [phone] Social History Tobacco Use Types Packs/Day Years Used Date Smoking Tobacco: Former Cigarettes 1 Quit : 02/07/2015 Tobacco Cessation: Counseling Given: Yes Alcohol Use Standard Drinks/Week Comments No 0 (1 standard drink = 0.6 oz pure alcoho l) Sex Assigned at Date Recorded Not on file documented as of this encounter Last Filed Vital Signs Vital Sign Reading Time Taken Comments Blood Pressure 118/80 04/22/2016 3:38 PM CDT Pulse 71 04/22/2016 3:38 PM CDT Temperature - - Respiratory Rate - - Oxygen Saturation 99% 04/22/2016 3:38 PM CDT Inhaled Oxygen Concentration - - Weight 86.2 kg (190 lb) 04/22/2016 3:38 PM CDT Height 175.3 cm (5' 9) 04/22/2016 3:38 PM CDT Body Mass Index 28.06 04/22/2016 3:38 PM CDT documented in this encounter Progress Notes Crystal Houston, TED TELEPHONER - 04/22/2016 4:20 PM CDT HISTORY OF PRESENT ILLNESS: This is a 65-year-old male who presents to [facility] today for a followup visit. He is a patient of Dr. Reza seen in our clinic for coronary artery disease, cardiomyopathy and hyperlipidemia. Neptali suffered an inferior lateral myocardial infarction and underwent stenting to the mid circumflex vessel in 01/2015. In 02/2015, he underwent staged stenting to his LAD and right coronary artery.Since then, he has done well in followup. In 03/2015, echocardiogram demonstrated left ventricular ej ection fraction of 45% percent with inferolateral, lateral and septal hypokinesia. Over this past year, there has been no evidence of heart failure. Fortunately, Neptali was able to give up tobacco at the time of this myocardial infarction. He returns today for an annual office visit. Naldo tells me he is doing well. He is quite active, exercising on a recumbent bike and elliptical desiree hour each day. He denies any chest pain or shortness of breath with activity or at rest. He denies palpitations or near-syncope. Occasionally, he does admit to some positional lightheadedness. Overall, as the year has gone on, these have become less frequent. He tells me his energy is good. He denies orthopnea or peripheral edema. PHYSICAL EXAMINATION: His blood pressure today is 118/86, heart rate is 71 beats per minute and is regular. His lungs are clear. There is no peripheral edema. His weight is down to 190 pounds. He tellsme he has been able to stay off cigarettes. IMPRESSION AND PLAN: 1. Coronary artery disease. History of previous inferior lateral myocardial infarction and stenting to the mid-circumflex vessel in 01/2015. Subsequent staged stenting to his LAD and right coronary artery in 02/2015. Today, he is free from any angina symptoms and doing well in followup. It has been over 1 year since his myocardial infarction. He will discontinue Plavix at this time and have him remain on aspirin, beta blockade and CAMMIE inhibitor therapy. 2. Ischemic cardiomyopathy. Left ventricular ejection fraction of 45%. There are no significant signs and symptoms of heart failure. We will continue current medical regimen. I have advised low-sodium foods and to notify our clinic with any weight gain or shortness of breath. 3. Hyperlipidemia. 4. He has been on atorvastatin. He tells me he has come in fasting today, and we will draw an annuallipid panel and BMP. Thank you for allowing me to participate in this patient's care. Otherwise, we will have him follow up with Dr. Reza next year. CRYSTAL HOUSTON APRN, CNP MT: JOAQUIM Name: NEPTALI SULLIVAN MRN: [id number] Account: [id number] : 1950 Service Date: 04/22/2016 Document: [id number] Crystal Houston APRN CNP - 04/22/2016 4:15 PM CDT HPI and Plan: #[id number] See dictation Orders Placed This Encounter Procedures ??? Lipid Profile ??? ALT ??? Basic metabolic panel Orders Placed This Encounter Medications ??? traMADol (ULTRAM) 50 MG tablet Sig: Take 50 mg by mouth every 6 hours as needed for moderate pain ??? carvedilol (COREG) 25 MG tablet Sig: Take 25 mg by mouth 2 times daily (with meals) ??? UNABLE TO FIND Sig: Volproic acid 250 MD Medications Discontinued During This Encounter Medication Reason ??? metoprolol (TOPROL-XL) 25 MG 24 hr tablet Therapy completed ??? clopidogrel (PLAVIX) 75 MG tablet Encounter Diagnoses Name Primary? ST elevation myocardial infarction (STEMI), unspecified artery (H) ??? Coronary artery disease involving klawock coronary artery of klawock heart without angina pectoris ??? Mixed hyperlipidemia ??? Tobacco abuse CURRENT MEDICATIONS: Current Outpatient Prescriptions Medication Sig Dispense Refill ??? traMADol (ULTRAM) 50 MG tablet Take 50 mg by mouth every 6 hours as needed for moderate pain ??? carvedilol (COREG) 25 MG tablet Take 25 mg by mouth 2 times daily (with meals) ??? UNABLE TO FIND Volproic acid 250 MD ??? aspirin EC 81 MG EC tablet Take 1 tablet (81 mg) by mouth daily 90 tablet 3 ??? nitroglycerin (NITROSTAT) 0.[address] 1 tablet (0.4 mg) under the tongue every 5 minutes as needed for chest pain 25 tablet 2 ??? atorvastatin (LIPITOR) 40 MG tablet Take 1 tablet (40 mg) by mouth every evening 90 tablet 3 ??? lisinopril (PRINIVIL,ZESTRIL) 5 MG tablet Take 1 tablet (5 mg) by mouth daily 90 tablet 3 ??? AMITRIPTYLINE HCL PO Take 25 mg by mouth At Bedtime ALLERGIES No Known Allergies PAST MEDICAL HISTORY: Past Medical History Diagnosis Date ??? STEMI (ST elevation myocardial infarction) (H) 2015 Inferior ??? CAD (coronary artery disease) 2015 Stents ??? Hyperlipidemia ??? Smoker ??? Migraine ??? Metabolic syndrome ??? Cardiomyopathy (H) PAST SURGICAL HISTORY: Past Surgical History Procedure Laterality Date ??? Orthopedic surgery ??? Stent, coronary, s660 02-07-15 Thrombectomy RIZWAN CX ??? Stent, coronary, s660 02-28-15 RIZWAN -LAD, RCA FAMILY HISTORY: Family History Problem Relation Age of Onset ??? Asthma Father SOCIAL HISTORY: Social History Social History ??? Marital Status: Spouse Name: N/A ??? Number of Children: N/A ??? Years of Education: N/A Social History Main Topics ??? Smoking status: Former Smoker -- 1.00 packs/day Quit date: 02/07/2015 ??? Smokeless tobacco: None ??? Alcohol Use: No ??? Drug Use: None ??? Sexual Activity: Not Asked Other Topics Concern ??? Caffeine Concern No 1-2 coffee daily ??? Sleep Concern No ??? Special Diet No ??? Exercise Yes 3 days per week Social History Narrative Review of Systems: Skin: Positive for bruising Eyes: Positive for glasses ENT: Positive for hearing loss Respiratory: Negative Cardiovascular: lightheadedness;Positive for little bit Gastroenterology: Positive for heartburn;reflux Genitourinary: Negative Musculoskeletal: Positive for joint pain shoulders Neurologic: Positive for migraine headaches Psychiatric: Positive for excessive stress Heme/Lymph/Imm: Positive for easy bruising Endocrine: Negative Physical Exam: Vitals: BP 118/80 mmHg Pulse 71 Ht 1.753 m (5' 9) Wt 86.183 kg (190 lb) BMI 28.05 kg/m2 SpO2 99% Constitutional: cooperative;in no acute distress Skin: warm and dry to the touch Head: normocephalic Eyes: pupils equal and round;sclera white ENT: no pallor or cyanosis, dentition good Neck: JVP normal Chest: clear to auscultation;normal symmetry Cardiac: regular rhythm;normal S1 and S2;no murmurs, gallops or rubs detected S4 no presence of murmur Abdomen: abdomen soft;BS normoactive Vascular: pulses full and equal Extremities and Back: no edema right radial pulse palpable without audible bruit Neurological: no gross motor deficits;affect appropriate, oriented to time, person and place CC Torres Reza MD [facility] [address] [place] [phone] documented in this encounter Plan of Treatment Not on filedocumented as of this encounter Results (ABNORMAL) Basic metabolic panel (04/22/2016 4:24 PM CDT) athologist Signature Sodium 138 133 - 144 [place] mmol/L [facility] Potassium 4.6 3.4 - 5.3 [place] mmol/L [facility] Chloride 105 94 - 109 [place] mmol/L [facility] Carbon Dioxide 30 20 - 32 [place] mmol/L [facility] Anion Gap 3 3 - 14 [place] mmol/L [facility] Glucose 104 (H) 70 - 99 [place] mg/dL [facility] Urea Nitrogen 9 7 - 30 [place] mg/dL [facility] Creatinine 0.90 0.66 - NO[place] 1.25 mg/dL [facility] GFR Estimate 85 >60 [place] mL/min/1.[address] Comment: Non GFR Calc GFR Estimate If Black >90 >60 mL/min/1.7m2 F [facility] GFR Calc HOSP ITAL Calcium 9.0 8.5 - 10.1 mg/dL [facility] Specimen Anatomical Collection Method Collection Time Receive d Time (Source) Location / / Volume Laterality Blood specimen 04/22/2016 4:24 PM 016 4:28 (specimen) CDT PM CDT Crystal Houston APRN, CNP LAB - BLOOD ORDERABLES Performing Organization Address City/[facility]/ZIP Code Phon e Number [facility] [address] [place], [place] [address] [place] [address] [address] [address], [facility] [phone] ALT (04/22/2016 4:24 PM CDT) athologist Signature ALT 36 0 - 70 U/L [facility] Specimen Anatomical Collection Method Collection Time Receive d Time (Source) Location / / Volume Laterality Blood specimen 04/22/2016 4:24 PM 016 4:28 (specimen) CDT PM CDT Crystal Houston APRN, CNP LAB - BLOOD ORDERABLES Performing Organization Address City/[facility] Phon e Number [facility] [address], [place] [address] [facility] [address], [place] [address], [facility] [phone] (ABNORMAL) Lipid Profile (04/22/2016 4:24 PM CDT) P athologist Signature Cholesterol 215 (H) <200 mg/dL [facility] Comment: Desirable: <200 mg/dl Triglycerides 321 (H) <150 mg/dL [facility] Comment: Borderline high: ??150-199 mg/dl High: ? 200-499 mg/dl Very high: ? >499 mg/dl HDL Cholesterol 33 (L) >39 mg/dL [facility] LDL Cholesterol Calculated 118 (H) <100 mg/dL [facility] Comment: Above desirable: ??100-129 mg/dl Borderline High: ??130-159 mg/dL High: ? 160-189 mg/dL Very high: ? >189 mg/dl Non HDL Cholesterol 182 (H) <130 mg/dL [facility] Comment: Above Desirable: ??130-159 mg/dl Borderline high: ??160-189 mg/dl High: ? 190-219 mg/dl Very high: ? >219 mg/dl Specimen Anatomical Collection Method Collection Time Receive d Time (Source) Location / / Volume Laterality Blood specimen 04/22/2016 4:24 PM 016 4:28 (specimen) CDT PM CDT Crystal Buck Celso JEAN TELEPHONER LAB - BLOOD ORDERABLES Performing Organization Address City/State/ZIP Code Phon e Number [facility] [address] [address] [facility] [address] [phone] documented in this encounter Visit Diagnoses Diagnosis ST elevation myocardial infarction (STEM I), unspecified artery (H) Coronary artery disease involving klawock coronary artery of klawock heart without angina pectoris Mixed hyperlipidemia Tobacco abuse Tobacco use disorder documented in this encounter Care Teams Sorter Packer Relationship Specialty Start Date End Date Joss Winchester MD PCP - General Internal Medicine 02/14/15 [facility] [place] [id number] documented as of this encounter
--- OUTSIDE RECORDS SUMMARY | 2022-06-26 08:09 | XMS_ITS | Encounter Summary ---
:1950 Author Organization [facility] Address [facility] [place] [address] Care Team Providers Name Role Phone Joss Winchseter MD Primary Care Provider Reason for Referral - Closed Specialty Diagnoses / Procedures Referred By Contact Refer red To Contact Diagnoses ST elevation myocardial infarction (STEMI), unspecified artery (H) Coronary artery disease involving [place] coronary artery of [place] heart without angina pectoris Mixed hyperlipidemia Tobacco abuse Mel Reza MD [address] [facility] [address] [place] [phone] Referral ID Status Reason Start Date Expiration Date Visits Requ ested Visits Authorized [id number] Closed 02/05/2016 02/04/2017 1 1 Reason for Visit Reason Comments Heart Problem F/u Last saw Tracy SHOE CLEANER 03/08/15 , See d/c summ post angio 02/09/15. Saw pt in hosp 02/07 Review echo 03/25 4 angelica rn - Closed Specialty Diagnoses / Procedures Referred By Contact Refer red To Contact Diagnoses ST elevation myocardial infarction (STEMI), unspecified artery (H) Deana Reeves APRN SOCCER REFEREE NO INFO AVAILABLE 06/13/2022 Referral ID Status Reason Start Date Expiration Date Visits Requ ested Visits Authorized [id number] Closed 03/28/2015 09/24/2015 1 1 Encounter Details Date Type Department Care Team Description 05/11/2015 Office Visit [facility] Mel Reza, CAD (c oronary artery disease) (Primary Dx); Heart Clinic MD ST elevation myocardial infarction (STEM I), unspecified artery (H); [place] [address] Mixed hyperlipidemia; [address] [facility] [address] Tobacco abuse [address] [place] [phone] Social History Tobacco Use [...] Sign Reading Time Taken Comments Blood Pressure 126/64 05/11/2015 10:04 AM CDT Pulse 65 05/11/2015 10:04 AM CDT Temperature - - Respiratory Rate - - Oxygen Saturation 98% 05/11/2015 10:04 AM CDT Inhaled Oxygen Concentration - - Weight 89.4 kg (197 lb) 05/11/2015 10:04 AM CDT Height 175.3 cm (5' 9) 05/11/2015 10:04 AM CDT Body Mass Index 29.09 05/11/2015 10:04 AM CDT documented in this encounter Progress Notes Mel Reza MD - 05/11/2015 10:36 AM CDT May 11, 2015 Tesha Nowak MD [facility] [address] [place] [address] Joss Winchester MD [address] [address] RE:Neptali Bender :1950 Dear Doctors: I saw Neptali Bender today who is 64. He was admitted in January with unstable angina and subsequentlyhad coronary angiography receiving aspiration thrombectomy and stenting of a culprit mid-left circumflex stenosis. He returned then to have stenting to his LAD and RCA. Since those interventions, he has had no complications. He is absolutely free of angina. He denies chest pain, palpitations, dizziness, syncope, shortness of breath, orthopnea or lower leg edema. His ejection fraction after his myocardial infarct was approximated at 45%. A limited echocardiogram done a month ago showed inferolateral hypokinesia and an EF of 45%. Accordingly, he has mildly diminished systolic function and presumably this would be chronic. To tremendous credit, and to a certain amount of pride, he has abstained from cigarettes since he went in the hospital. He says he occasionally has a desire to take a cigarette but has not done so. I discussed the absolute need to abstain and before he smokes another cigarette, he should accept a nicotine substitute or some other alternative. He says he does not think it will be a problem and I believe him. PHYSICAL EXAMINATION: GENERAL: Reveals a well-developed, well-nourished male. VITAL SIGNS: Blood pressure 126/60, heart rate 65 beats per minute. He weighs 197 pounds. HEAD: Normal. NECK: Free of neck vein distention, mass, bruit or goiter. HEART: Regular without gallop or murmur. LUNGS: Clear. ABDOMEN: Soft without organomegaly. EXTREMITIES: No edema and +1 pedal pulses. Naldo Bender has documented coronary artery disease. He has had stenting of the left circumflex, LAD and RCA. His LV function is mildly diminished at 45% with a previous inferior infarct. He is asymptomatic at this time. He did comment about the cost of Brilinta. I offered him the option of switching to Plavix if that was a better way to go from a cost effectiveness standpoint. I switch him from carvedilol 3.125 mg b.i.d. to Toprol-XL 25 mg once a day. I left him on his other medicines which are: 1. Aspirin 81 mg a day. 2. Atorvastatin 40 mg at bedtime. 3. Lisinopril 5 mg a day. 4. The aforementioned Brilinta 90 mg b.i.d. IMPRESSION: 1. Asymptomatic CAD. 2. Post-inferolateral myocardial infarct with mildly diminished LV function, LVEF of 45%. 3. Former smoker. 4. Treated hyperlipidemia. 5. Carvedilol discontinued. Toprol XL started at 25 mg a day. PLAN: I will see him in 10/2015 which will be the anniversary of his stenting interventions and likely stop the Brilinta/Plavix at that time. Otherwise, if he has signs of unstable angina or problems, let me know. Over 35 minutes was spent reviewing his multiple medical problems including hyperlipidemia, coronarydisease, ischemic cardiomyopathy, previous myocardial infarction and post-stenting intervention. Sincerely, Mel Reza MD, [facility] MEL REZA MD, [facility] MT: TIMOTHY Name: NEPTALI SULLIVAN Account: [id number] : 1950 Service Date: 05/11/2015 Document: [id number] Mel Reza MD - 05/11/2015 10:28 AM CDT HPI and Plan: See dictation I recommend the following treatment or medication changes DC coreg => start Toprol 25 mg qd. Orders Placed This Encounter Procedures ??? Follow-Up with Cryolite Recovery Operator Orders Placed This Encounter Medications ??? metoprolol (TOPROL-XL) 25 MG 24 hr tablet Sig: Take 1 tablet (25 mg) by mouth daily Dispense: 90 tablet Refill: 4 Medications Discontinued During This Encounter Medication Reason ??? carvedilol (COREG) 3.125 MG tablet Encounter Diagnoses Name Primary? ST elevation myocardial infarction (STEMI), unspecified artery ??? CAD (coronary artery disease) Yes ??? Mixed hyperlipidemia ??? Tobacco abuse CURRENT MEDICATIONS: Current Outpatient Prescriptions Medication Sig Dispense Refill ??? metoprolol (TOPROL-XL) 25 MG 24 hr tablet Take 1 tablet (25 mg) by mouth daily 90 tablet 4 ??? aspirin EC 81 MG EC tablet [...] by mouth daily 90 tablet 3 ??? ticagrelor (BRILINTA) 90 MG tablet Take 1 tablet (90 mg) by mouth every 12 hours 60 tablet 11 ??? AMITRIPTYLINE HCL PO Take 25 mg by mouth At Bedtime ALLERGIES No Known Allergies PAST MEDICAL HISTORY: Past Medical History Diagnosis Date ??? STEMI (ST elevation myocardial infarction) 2014 Inferior ??? CAD (coronary artery disease) 2015 Stents ??? Hyperlipidemia ??? Smoker ??? Migraine ??? Metabolic syndrome ??? Cardiomyopathy PAST SURGICAL HISTORY: Past Surgical History Procedure Laterality Date ??? Orthopedic surgery ??? Stent, coronary, s660 02-07-15 Thrombectomy RIZWAN CX ??? Stent, coronary, s660 02-28-15 RIZWAN -LAD, RCA FAMILY HISTORY: Family History Problem Relation Age of Onset ??? Asthma Father SOCIAL HISTORY: History Social History ??? Marital Status: Spouse Name: N/A Number of Children: N/A ??? Years of Education: N/A Social History Main Topics ??? Smoking status: Former Smoker -- 1.00 packs/day Quit date: 02/07/2015 ??? Smokeless tobacco: None ??? Alcohol Use: No ??? Drug Use: None ??? Sexual Activity: None Other Topics Concern ??? Caffeine Concern No 1-2 coffee daily ??? Sleep Concern No ??? Special Diet No ??? Exercise Yes 3 days per week Social History Narrative Review of Systems: Skin: Positive for bruising Eyes: Positive for glasses ENT: Positive for hearing loss Respiratory: Positive for shortness of breath SOB after sitting for a while thn getting up Cardiovascular: Negative Gastroenterology: Negative Genitourinary: Negative Musculoskeletal: Negative Neurologic: Positive for migraine headaches Psychiatric: Negative Heme/Lymph/Imm: Positive for easy bruising Endocrine: Physical Exam: Vitals: BP 126/64 mmHg Pulse 65 Ht 1.753 m (5' 9) Wt 89.359 kg (197 lb) BMI 29.08 kg/m2 SpO2 98% Constitutional: cooperative;alert and oriented Skin: warm and dry to the touch Head: normocephalic Eyes: pupils equal and round;sclera white ENT: no pallor or cyanosis, dentition good Neck: carotid pulses are full and equal bilaterally;JVP normal Chest: clear to auscultation;normal symmetry Cardiac: regular rhythm;normal S1 and S2;no murmurs, gallops or rubs detected S4 Abdomen: abdomen soft;BS normoactive Vascular: pulses full and equal right femoral puncture site without bleed/bruit. soft small hematomaaround site Extremities and Back: no edema;no deformities, clubbing, cyanosis, erythema observed right radial pulse palpable without audible bruit Neurological: no gross motor deficits;affect appropriate, oriented to time, person and place Recent Lab Results: LIPID RESULTS: Lab Results Component Value Date CHOL 164 03/08/2015 HDL 36* 03/08/2015 LDL 87 03/08/2015 TRIG 203* 03/08/2015 CHOLHDLRATIO 4.6 03/08/2015 LIVER ENZYME RESULTS: Lab Results Component Value Date AST 21 02/07/2015 ALT 56 03/08/2015 CBC RESULTS: Lab Results Component Value Date WBC 4.9 03/01/2015 RBC 4.49 03/01/2015 HGB 13.5 03/01/2015 HCT 39.9* 03/01/2015 MCV 89 03/01/2015 MCH 30.1 03/01/2015 MCHC 33.8 03/01/2015 RDW 15.0 03/01/2015 PLT 216 03/01/2015 BMP RESULTS: Lab Results Component Value Date NA 136 03/08/2015 POTASSIUM 4.4 03/08/2015 CHLORIDE 105 03/08/2015 CO2 21 03/08/2015 ANIONGAP 10 03/08/2015 GLC 104* 03/08/2015 BUN 12 03/08/2015 CR 0.89 03/08/2015 GFRESTIMATED 85 03/08/2015 GFRESTBLACK >90 GFR Calc 03/08/2015 LUCRECIA 9.1 03/08/2015 A1C RESULTS: No results found for: A1C INR RESULTS: Lab Results Component Value Date INR 0.95 02/27/2015 INR 0.90 02/07/2015 CC Tesha Multani [facility] [place] [address] documented in this encounter Plan of Treatment Scheduled Referrals Name Type Priority Associated Diagnoses Order S chedule Follow-Up with Referral Routine ST elevation myocardial Ex pected: 02/05/2016 [facility] Recovery Operator infarction (STEMI), (Approxi mate), unspecified ema ry (H) Expires: 05/10/2016 CAD (coronary artery disease) Mixed hyperlipid emia Tobacco abuse documented as of this encounter Visit Diagnoses Diagnosis CAD (coronary artery disease) - Primary Coronary atherosclerosis of unspecified type of vessel, umkumiut or graft ST elevation myocardial infarction (STEM I), unspecified artery (H) Mixed hyperlipidemia Tobacco abuse Tobacco use disorder documented in this encounter Care Teams Back Wedger Relationship Specialty Start Date End Date Joss Winchester MD PCP - General Internal Medicine 02/14/15 [facility] [place] [place] [address] documented as of this encounter
--- OUTSIDE RECORDS SUMMARY | 2022-06-26 08:09 | XMS_ITS | Encounter Summary ---
:1950 Author Organization [place] Address [address] [place] [address] Care Team Providers Name Role Phone Joss Winchester MD Primary Care Provider Encounter Details Date Type Department Care Team Description 11/11/2016 Orders Only [facility], Provider CAD (c oronary artery [facility] [place] Not In disease) (Primary Dx) Laboratory [address] [facility] [address] [place] [address] Social History Tobacco Use Types Packs/Day Years [...] Name Priority Date/Time Associated Diagnosis Comme nts MAGNESIUM Routine 08/22/2016 Results for thi s procedure are in the resu lts section. documented in this encounter Results Magnesium (08/22/2016) P athologist Signature Magnesium 2.3 1.8 - 2.4 [facility] Specimen (Source) Anatomical Location Collection Method / Collectio n Time Received Time / Laterality Volume Blood specimen 08/22/2016 (specimen) Patient Reported LAB - BLOOD ORDERABLES Performing Organization Address City/State/ZIP Code Phon e Number [facility] [place] [address] documented in this encounter Visit Diagnoses Diagnosis CAD (coronary artery disease) - Primary Coronary atherosclerosis of unspecified type of vessel, viejas or graft documented in this encounter Care Teams First Assist Relationship Specialty Start Date End Date Joss Winchester MD PCP - General Internal Medicine 02/14/15 [facility] [place] [address] documented as of this encounter
--- OUTSIDE RECORDS SUMMARY | 2022-06-26 08:09 | XMS_ITS | Encounter Summary ---
:1950 Author Organization [place] Address [address] [place] [address] Care Team Providers Name Role Phone Joss Winchester MD Primary Care Provider Reason for Visit Reason Onset Date Comments Patient Request for Note/Letter 12/29/2017 Request for records Encounter Details Date Type Department Care Team Description 12/29/2017 Telephone [facility] Sheba Padilla ent Request for Clinic Yulisa Huggins RN Note/Letter (Request for [address] [facility] records) [facility] [address] [place] [address] Social History Tobacco Use Types Packs/Day Years Used Date Smoking Tobacco: Former Cigarettes 1 Quit : 02/07/2015 Smokeless Tobacco: Never Alcohol Use Standard Drinks/Week Comments No 0 (1 standard drink = 0.6 oz pure alcoho l) Sex Assigned at Date Recorded Not on file documented as of this encounter Miscellaneous Notes Telephone Encounter - Joseluis Padilla - 12/29/2017 10:10 AM CDT Fax received from Sivan Larkin with the Office of Disability Adjudication and Review with [employer]. The fax included a request for records for a claim. A release of information form with the patient's signature was attached with the request. The note from the patient's last office visit with Dr. Reza on 11/07/17, including the patient's current medications, was faxed to per the instructions on the form. Blaise Padilla RN - 12/29/17, 10:14 AM documented in this encounter Plan of Treatment Not on filedocumented as of this encounter Visit Diagnoses Not on filedocumented in this encounter Care Teams Safety Consultant Relationship Specialty Start Date End Date Joss Winchester MD PCP - General Internal Medicine 02/14/15 [facility] [place] [address] documented as of this encounter
--- OUTSIDE RECORDS SUMMARY | 2022-06-26 08:09 | XMS_ITS | Encounter Summary ---
:1950 Author Organization [place] Address [facility] [place] [address] Care Team Providers Name Role Phone Joss Winchester MD Primary Care Provider Reason for Visit Reason Comments Heart Problem CAD (STEMI), Stents-Left cir cumflex, LAD and RCA, Hyperlipidemia, HLD. Encounter Details Date Type Department Care Team Description 08/01/2016 Office Visit [facility] Mel Reza, geovanny vation myocardial infarction (STEMI), unspecified artery (H) (Primary Dx); Heart Clinic Atherosclerosis of [place] coronary arter y of [place] heart without angina pectoris [address] [place] [phone] Social History Tobacco Use Types [...] Sign Reading Time Taken Comments Blood Pressure 120/82 08/01/2016 10:01 AM MECHANICAL APPLICATIONS ENGINEER Pulse 83 08/01/2016 10:01 AM MECHANICAL APPLICATIONS ENGINEER Temperature - - Respiratory Rate - - Oxygen Saturation 97% 08/01/2016 10:01 AM MECHANICAL APPLICATIONS ENGINEER Inhaled Oxygen Concentration - - Weight 85.7 kg (189 lb) 08/01/2016 10:01 AM MECHANICAL APPLICATIONS ENGINEER Height 175.3 cm (5' 9) 08/01/2016 10:01 AM MECHANICAL APPLICATIONS ENGINEER Body Mass Index 27.91 08/01/2016 10:01 AM MECHANICAL APPLICATIONS ENGINEER documented in this encounter Progress Notes Mel Reza MD - 08/01/2016 11:01 AM CST August 01, 2016 Joss Winchester MD [facility] 284 RE:Neptali Bender :[address] Winchester: I got together with Naldo Bender today who is 65. He has confirmed coronary artery disease, having been admitted to [facility] 01/2015 with chest pain. He had an ST elevation inferior wallMI that was taken urgently to the [facility], where he had thrombectomy, angioplasty and rescue stenting of his mid-left circumflex with a 3.5 x 16 mm drug-eluting stent. He subsequently had a staged intervention with angioplasty of the mid-LAD with a 2.25 drug-eluting stent and a 3.0 RIZWAN to the mid RCA. Subsequent to this, his ejection fraction was mildly diminished at around 45%. In the past year, he has had nothing to suggest either left or right heart failure. He denies any symptoms of recurring angina. He denies chest pain, pressure, tightness, squeezing or heaviness. He denies palpitations, dizziness, syncope or lower leg edema. Naldo used to smoke but he stopped with his heart attack and has not returned. He has watched what he is eating. His lipids tend to run a little high. He is on atorvastatin 80 mg at bedtime. The last LDL in the chart was 118 from 03/2016. He says that you plan to follow up with his LDL and cholesterol when he sees you later this year. I would like to get the LDL below 100. His creatinines have been normal. Renal function normal. Triglycerides have run a bit high. I threatened him with fenofibrate and discussed diet, continued exercise and controlling his carbohydrate intake. He promises to try. His review of systems was relatively negative otherwise for HEENT, upper GI, lower GI, , musculoskeletal, endocrine, etc. He has chronic left shoulder pain and anticipates having surgery in the relative near future. He has a little bit of a tendency to migraine headaches. He has easy bruising, but no significant bleeding. Endocrine negative. Cardiac was negative. PHYSICAL EXAMINATION: GENERAL: Shows a well-developed, well-nourished male. VITAL SIGNS: Blood pressure 120/80, heart rate 76 beats a minute. He weighs 189 pounds. HEAD: Normal. NECK: Free of neck vein distention or bruits. HEART: Regular without gallop or murmur. LUNGS: Clear. ABDOMEN: Soft without organomegaly, mass or pain. EXTREMITIES: Show +2 dorsalis pedis pulses and no edema. His extremities were warm, dry, pink and perfused. Mr. Bender is 65. He is relatively asymptomatic. He has a mild ischemic cardiomyopathy but clinically has no signs of angina or heart failure. His EF had been documented at 45%. He will be following with you with regards to his atorvastatin and his lipids, shooting for an LDL below 100. His current medications are: 1. Carvedilol 25 mg b.i.d. 2. Atorvastatin 80 mg at bedtime. 3. Lisinopril 5 mg daily. 4. Amitriptyline 25 mg at bedtime. 5. Aspirin 81 mg a day. I encouraged him to control his carbs to see if we can get his triglycerides down and I would encourage you to add a fenofibrate if they continue to be high. He takes good care of himself. He looks well and feels well. He is post coronary stenting to the left circumflex, LAD and RCA. To his great credit, he stopped smoking and he looks well and feels well, and it was a treat to see him. Thanks for the privilege. IMPRESSIONS: 1. Asymptomatic coronary artery disease post coronary stenting as noted above. 2. Treated hyperlipidemia. 3. Treated hypertension. 4. LDL is not quite at goal. PLAN: As above. Sincerely, MEL REZA MD, [facility] [place]: jennifer Name: NEPTALI SULLIVAN MRN: [id number] Account: [id number] : 1950 Service Date: 08/01/2016 Document: [id number] ANICAL APPLICATIONS ENGINEER Mel Reza MD - 08/01/2016 10:52 AM CST HPI and Plan: See dictation No orders of the defined types were placed in this encounter. No orders of the defined types were placed in this encounter. There are no discontinued medications. No diagnosis found. CURRENT MEDICATIONS: Current Outpatient Prescriptions Medication Sig Dispense Refill ??? atorvastatin (LIPITOR) 80 MG tablet Take 1 tablet (80 mg) by mouth every evening 90 tablet 3 ??? traMADol (ULTRAM) 50 MG tablet Take 50 mg by mouth every 6 hours as needed for moderate pain ??? carvedilol (COREG) 25 MG tablet Take 25 mg by mouth 2 times daily (with meals) ??? aspirin EC 81 MG EC tablet Take 1 tablet (81 mg) by mouth daily 90 tablet 3 ??? nitroglycerin (NITROSTAT) 0.[address] 1 tablet (0.4 mg) under the tongue every 5 minutes as needed for chest pain 25 tablet 2 ??? lisinopril (PRINIVIL,ZESTRIL) 5 MG tablet Take 1 tablet (5 mg) by mouth daily 90 tablet 3 ??? AMITRIPTYLINE HCL PO Take 25 mg by mouth At Bedtime ??? UNABLE TO FIND Volproic acid 250 MD ALLERGIES No Known Allergies PAST MEDICAL HISTORY: [...] History Narrative Review of Systems: Skin: Negative Eyes: Positive for glasses ENT: Positive for hearing loss Respiratory: Negative Cardiovascular: Negative Gastroenterology: Positive for heartburn occ Genitourinary: Negative Musculoskeletal: Positive for joint pain left shoulder Neurologic: Positive for migraine headaches;headaches Psychiatric: Negative Heme/Lymph/Imm: Positive for easy bruising not as much as he had been Endocrine: Negative Physical Exam: Vitals: BP 120/82 mmHg Pulse 83 Ht 1.753 m (5' 9) Wt 85.73 kg (189 lb) BMI 27.90 kg/m2 SpO2 97% Constitutional: cooperative;in no acute distress Skin: warm and dry to the touch Head: normocephalic Eyes: pupils equal and round;sclera white ENT: no pallor or cyanosis, dentition good Neck: JVP normal Chest: clear to auscultation;normal symmetry Cardiac: regular rhythm;normal S1 and S2;no murmurs, gallops or rubs detected S4 no presence of murmur Abdomen: abdomen soft;no masses;non-tender Vascular: pulses full and equal 2+ 2+ Extremities and Back: no edema right radial pulse palpable without audible bruit Neurological: no gross motor deficits;affect appropriate, oriented to time, person and place Recent Lab Results: LIPID RESULTS: Lab Results Component Value Date CHOL 215* 04/22/2016 HDL 33* 04/22/2016 LDL 118* 04/22/2016 TRIG 321* 04/22/2016 CHOLHDLRATIO 4.6 03/08/2015 LIVER ENZYME RESULTS: Lab Results Component Value Date AST 21 02/07/2015 ALT 36 04/22/2016 CBC RESULTS: Lab Results Component Value Date WBC 4.9 03/01/2015 RBC 4.49 03/01/2015 HGB 13.5 03/01/2015 HCT 39.9* 03/01/2015 MCV 89 03/01/2015 MCH 30.1 03/01/2015 MCHC 33.8 03/01/2015 RDW 15.0 03/01/2015 PLT 216 03/01/2015 BMP RESULTS: Lab Results Component Value Date NA 138 04/22/2016 POTASSIUM 4.6 04/22/2016 CHLORIDE 105 04/22/2016 CO2 30 04/22/2016 ANIONGAP 3 04/22/2016 GLC 104* 04/22/2016 BUN 9 04/22/2016 CR 0.90 04/22/2016 GFRESTIMATED 85 04/22/2016 GFRESTBLACK >90 GFR Calc 04/22/2016 LUCRECIA 9.0 04/22/2016 A1C RESULTS: No results found for: A1C INR RESULTS: Lab Results Component Value Date INR 0.95 02/27/2015 INR 0.90 02/07/2015 CC Joss Winchester MD [facility] [place] [id number] ANICAL APPLICATIONS ENGINEER documented in this encounter Plan of Treatment Not on filedocumented as of this encounter Visit Diagnoses Diagnosis ST elevation myocardial infarction (STEM I), unspecified artery (H) - Primary Atherosclerosis of [place] coronary arter y of [place] heart without angina pectoris documented in this encounter Care Teams Delivery Sales Worker Relationship Specialty Start Date End Date Joss Winchester MD PCP - General Internal Medicine 02/14/15 [facility] [place] [id number] documented as of this encounter
--- OUTSIDE RECORDS SUMMARY | 2022-06-26 08:09 | XMS_ITS | Encounter Summary ---
:1950 Author Organization [place] Address [address] [place] [address]. [place] [address] Care Team Providers Name Role Phone Joss Winchester MD Primary Care Provider Reason for Visit Reason Comments Erroneous encounter-disregard Encounter Details Date Type Department Care Team Description 08/29/2017 Documentation Only [facility] [place], Erro neous [facility] Yulisa Funez RN encounter-disregard [address] [facility] [address] [place] [address] Social History Tobacco Use [...] on filedocumented in this encounter Care Teams Pediatrician Active Practice Relationship Specialty Start Date End Date Joss Winchester MD PCP - General Internal Medicine 02/14/15 [facility] [place] [id number] documented as of this encounter
--- OUTSIDE RECORDS SUMMARY | 2022-06-26 08:09 | XMS_ITS | Encounter Summary ---
:1950 Author Organization [place] Address [address] [place] [address] Care Team Providers Name Role Phone Joss Winchester MD Primary Care Provider Reason for Visit Reason Onset Date Comments Medication Request 05/31/2015 Plavix Encounter Details Date Type Department Care Team Description 05/31/2015 [facility] Chan Seals Medic ation Request Heart Clinic Yulisa Pool RN (Plavix) [address] [place] [address] [address] [place] [address] Social History Tobacco Use Types Packs/Day Years Used Date Smoking Tobacco: Former Cigarettes 1 Quit : 02/07/2015 Alcohol Use Standard Drinks/Week Comments No 0 (1 standard drink = 0.6 oz pure alcoho l) Sex Assigned at Date Recorded Not on file documented as of this encounter Miscellaneous Notes Telephone Encounter - Chan Seals, FRANKLIN - 05/31/2015 1:23 PM CDT Patient called requesting to be switched from Brilinta to Plavix. He had discussed this with Dr. Reza on 05/11 and Juaquin approved the switch but did not send the Rx in. I will send this to [facility] in [place]. Told patient he can begin this as soon as he gets it. FRANKLIN Finley documented in this encounter Plan of Treatment Not on filedocumented as of this encounter Visit Diagnoses Not on filedocumented in this encounter Care Teams Fermentation Scientist Relationship Specialty Start Date End Date Joss Winchester MD PCP - General Internal Medicine 02/14/15 [facility] [place] [place] [address] documented as of this encounter
--- OUTSIDE RECORDS SUMMARY | 2022-06-26 08:09 | XMS_ITS | Encounter Summary ---
:1950 Author Organization [place] Address [address] [place] [address] Care Team Providers Name Role Phone Joss Winchester MD Primary Care Provider Reason for Visit Reason Onset Date Comments Medication Question 05/14/2016 Changed insurance, r esubmit script to pharmacy Encounter Details Date Type Department Care Team Description 05/14/[address] [facility] Sangeetha Paz M edication Question Clinic Satish REID (Changed insurance, [phone] [address] resubmi t script to [address] pharmacy) [place] [address] Social History Tobacco Use Types Packs/Day Years Used Date Smoking Tobacco: Former Cigarettes 1 Quit : 02/07/2015 Alcohol Use Standard Drinks/Week Comments No 0 (1 standard drink = 0.6 oz pure alcoho l) Sex Assigned at Date Recorded Not on file documented as of this encounter Miscellaneous Notes Telephone Encounter - Sangeetha Paz RN - 05/14/2016 12:56 PM CDT Received call from patient. Patient requesting another script be sent to his pharmacy. He has new insurance. I sent a new script for Lipitor. Patient had no other questions. Jon REID 12:57 PM Telephone Encounter - Sangeetha Paz RN - 05/14/2016 12:49 PM CDT Received a phone message from patient to discuss recent med change, patient had questions about his med. Called patient and left a message for patient to call me back. Crystal [place] HEAD PASTRY CHEF increased Lipitor to 80 mg daily. Jon REID 12:50 PM documented in this encounter Plan of Treatment Not on filedocumented as of this encounter Visit Diagnoses Diagnosis ST elevation myocardial infarction (STEM I), unspecified artery (H) - Primary documented in this encounter Care Teams Shipper/Receiver Relationship Specialty Start Date End Date Joss Winchester MD PCP - General Internal Medicine 02/14/15 [facility] [place] [address] documented as of this encounter
--- OUTSIDE RECORDS SUMMARY | 2022-06-26 08:09 | XMS_ITS | Encounter Summary ---
:1950 Author Organization [place] Address [address] [place] [address] Care Team Providers Name Role Phone Joss Winchester MD Primary Care Provider Reason for Visit Reason Onset Date Comments Results 04/23/2016 BMP, Lipids, ALT Encounter Details Date Type Department Care Team Description 04/23/2016 Telephone [facility] Anne Moreira, Results (BMP, Lipids, Clinic [facility] RN ALT) [address] [facility] [address] [place] [address] Social History Tobacco Use Types Packs/Day Years Used Date Smoking Tobacco: Former Cigarettes 1 Quit : 02/07/2015 Alcohol Use Standard Drinks/Week Comments No 0 (1 standard drink = 0.6 oz pure alcoho l) Sex Assigned at Date Recorded Not on file documented as of this encounter Miscellaneous Notes Telephone Encounter - Anne Moreira RN - 05/06/2016 3:09 PM CDT Result letter with instructions mailed to pt. Carlos REID Telephone Encounter - Anne Moreira RN - 05/02/2016 4:17 PM CDT Third attempt to contact pt, no answer. LM for call back. Carlos REID Telephone Encounter - Anne Moreira RN - 04/26/2016 3:38 PM CDT Second attempt to contact pt, no answer. LM for call back. Carlos REID Telephone Encounter - Anne Moreira RN - 04/23/2016 12:32 PM CDT Called pt to review LINA Amor recommendations, no answer. LM for call back. Carlos REID Telephone Encounter - Crystal [place] APRN CNP - 04/23/2016 12:09 PM CDT Lipid results noted. LDL 118 Please have him increase Lipitor to 80mg/day [facility] Have him return in 3 mo with lipid panel Pls call to review AFSHAN Freeman Telephone Encounter - Anne Moreira RN - 04/23/2016 9:05 AM CDT Pt seen in clinic 04/22 with LINA Amor for annual f/u on CAD, ischemic CM and hyperlipidemia. Per note, pt came to OV fasting and lipids, ALT and BMP were requested after OV. Pt on atorvastatin 40mg daily. Lab results show: Component Latest Ref Rng 04/22/2016 Sodium 133 - 144 mmol/L 138 Potassium 3.4 - 5.3 mmol/L 4.6 Chloride 94 - 109 mmol/L 105 Carbon Dioxide 20 - 32 mmol/L 30 Anion Gap 3 - 14 mmol/L 3 Glucose 70 - 99 mg/dL 104 (H) Urea Nitrogen 7 - 30 mg/dL 9 Creatinine 0.66 - 1.25 mg/dL 0.90 GFR Estimate >60 mL/min/1.7m2 85 GFR Estimate If Black >60 mL/min/1.7m2 >90 . . . Calcium 8.5 - 10.1 mg/dL 9.0 Cholesterol <200 mg/dL 215 (H) Triglycerides <150 mg/dL 321 (H) HDL Cholesterol >39 mg/dL 33 (L) LDL Cholesterol Calculated <100 mg/dL 118 (H) Non HDL Cholesterol <130 mg/dL 182 (H) ALT 0 - 70 U/L 36 Called pt to review, confirmed again that he had been fasting prior OV. He states that evening before he was at a granddaughters birthday alliance party and had cake there. He denies any changes in his medication regimen and has been taking the atorvastatin 40mg continuously. Messaged to [facility] to review and advise. Carlos REID documented in this encounter Plan of Treatment Not on filedocumented as of this encounter Visit Diagnoses Diagnosis ST elevation myocardial infarction (STEM I), unspecified artery (H) - Primary documented in this encounter Care Teams Gear Hobber Relationship Specialty Start Date End Date Joss Winchester MD PCP - General Internal Medicine 02/14/15 [facility] [place] [place] [address] [place] [address] documented as of this encounter
--- OUTSIDE RECORDS SUMMARY | 2022-06-26 08:09 | XMS_ITS | Encounter Summary ---
:1950 Author Organization [place] Address [address] [place] [address] Care Team Providers Name Role Phone Joss Winchester MD Primary Care Provider Reason for Visit Rehab Therapy Cardiac Therapy (Routine) - Closed Specialty Diagnoses / Procedures Referred By Contact Refer red To Contact Cardiac Rehab / Diagnoses #3 no show on 03/29. lm to remind of next appt and attendance policy. ST elevation myocardial infarction (STEMI), unspecified artery [facility] CARDIAC REHAB Procedures TREATMENT [address] [place] [address] [address] [place] [address] Phone: Fax: Referral ID Status Reason Start Date Expiration Date Visits V isits Requested Authorized [facility]- Closed 03/25/2015 08/24/2015 36 36 ([id number]) Encounter Details Date Type Department Care Team Description 04/24/[address] [facility] Mykel-Deana Kamara APRN CNP NO INFO AVAILABLE 06/13/2022 Cardiac and Pulmonary 1, [facility] [place] [id number] [place] [address] [address] [place] [address] Social History Tobacco Use Types [...] on filedocumented in this encounter Care Teams Rpg Programmer Analyst Relationship Specialty Start Date End Date Joss Winchester MD PCP - General Internal Medicine 02/14/15 [facility] [place] [address] documented as of this encounter
--- OUTSIDE RECORDS SUMMARY | 2022-06-26 08:10 | XMS_ITS | Encounter Summary ---
:1950 Author Organization [place] Address Replaced by [facility] [place] [address] Care Team Providers Name Role Phone Joss Winchester MD Primary Care Provider Encounter Details Date Type Department Care Team Description 02/27/2015 Hospital Encounter M [facility] Tad Reza MD [address] [facility] [address] [place] [address] ST elevation [facility] Laboratory Deana Silva APRN LOGISTICS OFFICER NO INFO AVAILABLE 06/13/[address] infarction (STEMI), [place], [place] unspecified a [facility] [address] (H) [phone] Social History Tobacco Use Types Packs/Day Years [...] (STEMI), for chest pain unspecified artery (H) aspirin EC 81 MG EC Take 1 tablet (81 0 5 03/01/2015 tabletIndications: CAD mg) by mouth daily (coronary artery disease) atorvastatin (LIPITOR) 40 Take 1 tablet (40 [...] ticagrelor (BRILINTA) 90 Take 1 tablet (90 180 tablet 3 03/201503/01/2015 MG tabletIndications: mg) by mouth every Postsurgical percutaneous 12 hours transluminal coronary angioplasty status ticagrelor (BRILINTA) 90 Take 1 tablet (90 60 tablet 11 01/2305/31/2015 MG tabletIndications: ST mg) by mouth every elevation myocardial 12 hours infarction (STEMI), unspecified artery (H) documented as of this encounter Plan of Treatment Not on filedocumented as of this encounter Procedures Procedure Name Priority Date/Time Associated Comments Diagnosis CBC WITH PLATELETS & Routine 02/27/2015 2:02 ST elevation Resu lts for this DIFFERENTIAL PM CDT myocardial procedure are i n infarction (STEMI), the resu lts unspecified artery section. (H) INR Routine 02/27/2015 2:02 ST elevation Results for this PM CDT myocardial procedure are i n infarction (STEMI), the resu lts unspecified artery section. (H) PARTIAL THROMBOPLASTIN Routine 02/27/2015 2:02 ST elevation Re sults for this TIME PM CDT myocardial procedure are i n infarction (STEMI), the resu lts unspecified artery section. (H) BASIC METABOLIC PANEL Routine 02/27/2015 2:02 ST elevation Res ults for this PM CDT myocardial procedure are i n infarction (STEMI), the resu lts unspecified artery section. (H) documented in this encounter Results INR (02/27/2015 2:02 PM CDT) athologist Signature INR 0.95 0.86 - 1.14 [facility] Specimen Anatomical Collection Method Collection Time Receive d Time (Source) Location / / Volume Laterality Blood specimen 02/27/2015 2:02 PM 015 2:05 (specimen) CDT PM CDT Deana Silva APRN, CNP LAB - BLOOD ORDERA BLES Performing Organization Address [facility] Phon e Number [facility] [address] [place], [place] [address] [place] [address] [address] [place] [id number] [phone], [facility] [phone] Partial thromboplastin time (02/27/2015 2:02 PM CDT) athologist Signature PTT 30 22 - 37 sec [facility] Specimen Anatomical Collection Method Collection Time Receive d Time (Source) Location / / Volume Laterality Blood specimen 02/27/2015 2:02 PM 015 2:05 (specimen) CDT PM CDT Deana Silva APRN, CNP LAB - BLOOD ORDERA BLES Performing Organization Address City/[facility] Phon e Number [facility] [address], [place] [address] [facility] [address] [id number] [phone], [facility] [phone] CBC with platelets differential (02/27/2015 2:02 PM CDT) Patholo gist Method Time Signature WBC 6.3 4.0 - [place] 11.0 [facility] 10e9/L [facility] RBC Count 4.65 4.4 - 5.9 [place] 10e12/L [facility] Hemoglobin 14.2 13.3 - [place] 17.7 g/dL [facility] Hematocrit 41.1 40.0 - [place] 53.0 % [facility] MCV 88 78 - 100 [place] fl [facility] MCH 30.5 26.5 - [place] 33.0 pg [facility] MCHC 34.5 31.5 - [place] 36.5 g/dL [facility] RDW 14.8 10.0 - [place] 15.0 % [facility] Platelet Count 279 150 - 450 [place] 10e9[facility] Diff Method Automated [place] Method [facility] % Neutrophils 58.3 % [facility] % Lymphocytes 31.5 % [facility] % Monocytes 6.7 % [facility] % Eosinophils 2.7 % [facility] % Basophils 0.5 % [facility] % Immature 0.3 % [place] Granulocytes [facility] Absolute 3.7 1.6 - 8.3 [place] Neutrophil 109/[facility] Absolute 2.0 0.8 - 5.3 [place] Lymphocytes [address] [place] [address] Absolute 0.4 0.0 - 1.3 [place] Monocytes [address] [place] [address] Absolute 0.2 0.0 - 0.7 [place] Eosinophils [address] [place] [address] Absolute 0.0 0.0 - 0.2 [place] Basophils 109[facility] Abs Immature 0.0 0 - 0.4 [place] Granulocytes [address] [place] [address] Specimen Anatomical Collection Method Collection Time Receive d Time (Source) Location / / Volume Laterality Blood specimen 02/27/2015 2:02 PM 015 2:05 (specimen) CDT PM CDT Deana Silva APRN LOGISTICS OFFICER LAB - BLOOD ORDERA BLES Performing Organization Address City/State/ZIP Code Phon e Number M [facility] [address], [place] [address] [facility] [address] [place] [address] 7[facility] [phone] Basic metabolic panel (02/27/2015 2:02 PM CDT) P athologist Signature Sodium 139 133 - 144 [place] mmol/L [facility] Potassium 4.3 3.4 - 5.3 [place] [facility] Chloride 102 94 - 109 [place] mmol/L [facility] Carbon Dioxide 28 20 - 32 [place] mmol/L [facility] Anion Gap 9 3 - 14 [place] mmol/L [facility] Glucose 94 70 - 99 [place] mg/dL [facility] Urea Nitrogen 12 7 - 30 [place] mg/dL [facility] Creatinine 0.95 0.66 - [place] 1.25 mg/dL [facility] GFR Estimate 80 >60 [place] mL/min/1.[address] Comment: Non GFR Calc GFR Estimate If Black >90 >60 mL/min/1.7m2 F [facility] GFR Calc HOSP ITAL Calcium 8.7 8.5 - 10.1 mg/dL [facility] Specimen Anatomical Collection Method Collection Time Receive d Time (Source) Location / / Volume Laterality Blood specimen 02/27/2015 2:02 PM 015 2:05 (specimen) CDT PM CDT Deana Silva APRN LOGISTICS OFFICER LAB - BLOOD ORDERA BLES Performing Organization Address City/State/ZIP Code Phon e Number M [place] [address] [address] [place] [address] [facility] [address] [phone] documented in this encounter Visit Diagnoses Diagnosis ST elevation myocardial infarction (STEM I), unspecified artery (H) documented in this encounter Care Teams Roving Can Tender Relationship Specialty Start Date End Date Joss Winchester MD PCP - General Internal Medicine 02/14/15 [facility] [place] [id number] documented as of this encounter
--- OUTSIDE RECORDS SUMMARY | 2022-06-26 08:10 | XMS_ITS | Encounter Summary ---
:1950 Author Organization [place] Address [address] [place] [address] Care Team Providers Name Role Phone Joss Winchester MD Primary Care Provider Encounter Details Date Type Department Care Team Description 02/27/2015 Orders Only [facility] Heart [facility] Yulisa Pool RN myocardial infarction [address] [facility] (STEMI), unspecified [address] artery (H) (Primary DONOVAN Márquez [address] Dx) [phone] Social History Tobacco Use Types Packs/Day Years [...] Primary documented in this encounter Care Teams Parts Classifier Relationship Specialty Start Date End Date Joss Winchester MD PCP - General Internal Medicine 02/14/15 [facility] [place] [id number] documented as of this encounter
--- OUTSIDE RECORDS SUMMARY | 2022-06-26 08:10 | XMS_ITS | Encounter Summary ---
:1950 Author Organization [place] Address [address] [place] [address] Care Team Providers Name Role Phone Joss Winchester MD Primary Care Provider Reason for Visit Rehab Therapy Cardiac Therapy (Routine) - Closed Specialty Diagnoses / Procedures Referred By Contact Refer red To Contact Cardiac Rehab / Diagnoses #3 no show on 03/29. lm to remind of next appt and attendance policy. ST elevation myocardial infarction (STEMI), unspecified artery [facility] CARDIAC REHAB Procedures TREATMENT [address] [place] [address] [address] [place] [address] Phone: Fax: Referral ID Status Reason Start Date Expiration Date Visits V isits Requested Authorized [facility]- Closed 03/25/2015 08/24/2015 36 36 ([id number]) Encounter Details Date Type Department Care Team Description 04/12/[address] [facility] Mykel-Deana Kamara APRN CNP NO INFO AVAILABLE 06/13/2022 Cardiac and Pulmonary 1, [facility] [place] [id number] [place] [address] [address] [place] [address] Social History Tobacco Use Types [...] on filedocumented in this encounter Care Teams Meat Loiner Relationship Specialty Start Date End Date Joss Winchester MD PCP - General Internal Medicine 02/14/15 [facility] [place] [address] documented as of this encounter
--- OUTSIDE RECORDS SUMMARY | 2022-06-26 08:10 | XMS_ITS | Encounter Summary ---
:1950 Author Organization [place] Address [address] [place] [address] Care Team Providers Name Role Phone Joss Winchester MD Primary Care Provider Reason for Visit - Closed Specialty Diagnoses / Procedures Referred By Contact Refer red To Contact CARDIAC REHAB Diagnoses Status post coronary angioplasty [facility] [address] [place] [place] [address] Phone: Fax: Referral ID Status Reason Start Date Expiration Date Visits V isits Requested Authorized FR- CR Closed 02/22/2015 03/24/2015 365 365 ([id number]) Encounter Details Date Type Department Care Team Description 03/17/2015 Hospital Encounter [facility] Deana Meneses APRN CNP NO INFO AVAILABLE 06/13/2022 Cardiac and Pulmonary 1, [facility] [address] [place] [address] Social History Tobacco Use Types [...] on filedocumented in this encounter Care Teams Cardiopulmonary Supervisor Relationship Specialty Start Date End Date Joss Winchester MD PCP - General Internal Medicine 02/14/15 [facility] [place] [address] documented as of this encounter
--- OUTSIDE RECORDS SUMMARY | 2022-06-26 08:10 | XMS_ITS | Encounter Summary ---
:1950 Author Organization [place] Address [address] [place] [address] Care Team Providers Name Role Phone Joss Winchester MD Primary Care Provider Reason for Visit - Closed Specialty Diagnoses / Procedures Referred By Contact Refer red To Contact CARDIAC REHAB Diagnoses Status post coronary angioplasty [facility] [address] [place] [address] Phone: Fax: Referral ID Status Reason Start Date Expiration Date Visits V isits Requested Authorized FR- CR Closed 02/22/2015 03/24/2015 365 365 ([id number]) Encounter Details Date Type Department Care Team Description 02/24/2015 Hospital Encounter [facility] Mykel-Deana Kamara APRN CNP NO INFO AVAILABLE 06/13/2022 Cardiac and Pulmonary 1, [facility] [address] [place] [address] Social History Tobacco Use Types Packs/Day Years Used Date Smoking Tobacco: Every Day Cigarettes 1 Alcohol Use Standard Drinks/Week Comments Not Asked 0 (1 standard drink = 0.6 oz pure alcoho l) Sex Assigned at Date Recorded Not on file documented as of this encounter Last Filed Vital Signs Vital Sign Reading Time Taken Comments Blood Pressure - - Pulse - - Temperature - - Respiratory Rate - - Oxygen Saturation - - Inhaled Oxygen Concentration - - Weight 87.5 kg (192 lb 12.8 oz) 02/24/2015 1:00 PM CDT Height 175.3 cm (5' 9.02) 02/24/2015 1:00 PM CDT Body Mass Index 28.46 02/24/2015 1:00 PM CDT documented in this encounter Medications at [...] encounter Progress Notes Senthil Mcdonald MD - 02/24/2015 2:23 PM CDT OUTPATIENT CARDIAC REHAB INDIVIDUALIZED TREATMENT PLAN 30 Day Individualized Treatment Plan Certified through this date: 04/02/15 Name: Neptali Sullivan Date of : 1950 Date of Treatment: 02/07/15 Age: [age] year old Gender: male Treatment Diagnosis: Myocardial Infarction Secondary Treatment Diagnosis: Stent Hospital Location: [facility] Discharge Date: 02/09/15 Outpatient CR Start Date: 02/14/15 Primary Physician: Dr. Winchester Surgeon: Physician Coding Specialist: Dr. Reza Ejection Fraction: 45% THR (85% of age predicted max HR): 131.75 Risk Stratification: Moderate Physician cosignature/electronic signature indicates approval of this ITP document. I have established, reviewed and made necessary changes to the individualized treatment plan and exercise prescription for this patient. Assessment Assessment: Pt presents s/p DESx1 to OM. He is having a planned intervention to get 2 more stents inhis RCA and distal LAD on 02/28/15. He has had no symptoms since hospital discharge and is feeling great. Stressed improtance of carrying nitro with him at all times. Pt to start cardiac rehab for safe progression of exercise and risk factor education. 02/24/15.PT is making steady progress. He will undergo and other PCI intervention on February 28 at [facility]. informed patient that rehab would need an order stating it is OK for him to return to the program and was instructed as to what to do. He plans to return to rehab on March 06. He is a bit disctracted by his rotator cuff issue and related workman's comp and physical therapy. [facility] is holding on resistance training until patient consults with Physical Therapyabout appropriateness of the exercises. Continue with skilled therapy for increased exercise capacity, risk factor education and behavior change counseling. Patient and Program Goals Sessions Attended: 6 MET Goal: 5-6 Current MET Level: 4.2 Goal Pt desires to lose 1-2# per week to reach goal weight of 182#. Target Date 04/25/15 Date Met Progress Towards Goal 02/24/15. PT weight is stable. He reports making a few dietary changes that include decreased sodium, more fish and chicken and less red meat. He states he does a little label reading and occasionally monitors portions. Noncommittal to attending education classes. Goal Pt desires to increase endurance and stamina to return to walking 3-4 miles a day without symptoms. Target Date 04/25/15 Date Met Progress Towards Goal 02/24/15. Notes some improvement in endurance. Currently he is walking at home every other day for about 20 minutes covering 1 mile. Pain Assessment Patient Currently in Pain: Yes Pain Location: Shoulders Pain Ratin-4 Pain Description: Ache Pain Description Comment: Additional Pain Locations?: Pain [...] smoking cessation. Confidence to stay quit is 06/03. Stress / Psychosocial Reassessment Psycho-social Assessment: Initial Patient admits to stress: Yes Current level of stress: Moderate Coping skills: Patient Health Questionnaire-9 (PHQ-9) for Depression: 5-9 Minimal symptoms 10-14 Minor depression 15-19 Major depression, moderately severe > 20 Major depression, severe Completed PHQ-9 Score: 8 [facility] Function and Health Status Survey: A score of 4-5 indicates deficit for each functional health domain Completed Physical Fitness: 3 Feelings: 3 Daily Activities: 4 Social Activities: 3 Pain: 4 Change in Health: 4 Overall Health: 4 Social Support: 1 Quality of Life: 4 Stages of change: Contemplation Psychosocial Interventions planned: Patient to identify 2-3 coping mechanisms for stress, Patient toverbalize understanding of negative impact of stress to personal health Psychosocial Interventions completed: Target outcome goal: Assessment for depression using PhQ-9 and [facility] questionnaires. Maximize coping skills and develop positive support system. Outcome Not Achieved Comments: 02/14: Pt says [...] a lawsuit with his employer and contemplating m[facility]p. He does not have any coping mechanisms he uses for stress at this time, and denies need for any at this point in time. 02/24/15. Denies stress. Aditted he is bothered by his work injury to hisshoulder and dealing with worker's comp and physical therapy over the past 2 years. He has an arbitraiion meeting on February 28. Nutrition Reassessment Dietary assessment: Initial Assessment Rate Your Plate - Heart Survey: Scores range from 24 to 72. The higher the score the healthier the eating choices. 52 Overweight / Obesity: Yes Age: 64 Weight: 87.454 kg (192 lb 12.8 oz) Height: 175.3 cm (5' 9.02) BMI (Calculated): 28.52 Goal weight: 82.645 kg (182 lb 3.2 [...] and is actively trying to [facility]. He had done this s/p stent in 1998, butfell off of it after awhile because it got old. 02/24/15. See goals. Cholesterol Cholesterol: Labs Available Date: 02/08/15 Total Cholesterol: 201 HDL: 24 LDL: 112 Triglycerides: 325 Target outcome goal: Total cholesterol <150, HDL >40 M >50 F, LDL < 70, Trig < 150: Outcome Not Achieved Comments: 02/24/15. Did not review. 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 He is currently on light duty becauseof his shoulders, but he still walks 2-3 miles at work each night. He sometimes walks at home outside for exercise, but this is not always regular. 02/24/15. PT has started walkng for exercise every other day for 20 minutes. INDIVIDUALIZED TREATMENT PLAN Monitored sessions scheduled: 18 Monitored sessions Attended: 6 Exercise Reassessment Met Level Achieved: 4.2 Resting HR: 75 bpm Exercise HR: 105 bpm Post Exercise HR: 76 bpm Resting BP: 104/62 mmHg Exercise BP: 130/68 mmHg Post Exercise BP: 110/62 mmHg Pre SpO2: While Exercising SpO2: Post SpO2: Pre BG (if applicable): Post BG (if applicable): RPE: 3 ECG Rhythm: Normal sinus rhythm Ectopy: None Symptoms at home: Denies symptoms Symptoms in rehab: Denies symptoms Limitations: Pt has 5# limitation for both shoulders (h/o rotator cuff tears/repairs, will need eventual shoulder replacement) Exercise Prescription Type: Aerobic exercise, Flexibility training Mode: Treadmill, Nustep Frequency: 3 daysweek Duration/Time: 15-30 min Age: 64 THR (85% of age predicted max HR): 131.75 RPE recommended: Other (see comments) (4-6 OMNI) Progression: Progress up to 1/4 to 1/2 MET per week as BP, HR and tolerance allow. Angina with exercise: No Resistance Training: No Comments: 02/24/15. Hold on resistance training until clearde by physical therapy for rotator cuff injury. Current Home Exercise Type of Exercise: Walking Frequency (days per week): 2-3 Duration (minutes per session): 20 Recommended Home Exercise Prescription Type of Exercise: Walking Frequency (days per week): on days not at rehab Duration (minutes per session): 15-30 min RPE recommended: Other (see comments) (4-6 OMNI) Recommended THR: none given Comments/Exercise plan: Patient Education Education Recommended: Anatomy and Physiology of the Heart, Medication Overview, Weight Loss Education Attended: documented in this encounter Plan of Treatment Not on filedocumented as of this encounter Visit Diagnoses Not on filedocumented in this encounter Care Teams Ironmolder Relationship Specialty Start Date End Date Joss Winchester MD PCP - General Internal Medicine 02/14/15 [facility] [place] [address] documented as of this encounter
--- OUTSIDE RECORDS SUMMARY | 2022-06-26 08:10 | XMS_ITS | Encounter Summary ---
:1950 Author Organization [place] Address [address] [place] [address] Care Team Providers Name Role Phone Joss Winchester MD Primary Care Provider Reason for Visit - Closed Specialty Diagnoses / Procedures Referred By Contact Refer red To Contact CARDIAC REHAB Diagnoses Status post coronary angioplasty [facility] [address] [place] [address] Phone: Fax: Referral ID Status Reason Start Date Expiration Date Visits V isits Requested Authorized FR- CR Closed 02/22/2015 03/24/2015 365 365 ([id number]) Encounter Details Date Type Department Care Team Description 03/15/2015 Hospital Encounter [facility] Deana Meneses APRN CNP NO INFO AVAILABLE 06/13/2022 Cardiac and Pulmonary 1, [facility] [address] [place] [address] Social History Tobacco Use Types [...] on filedocumented in this encounter Care Teams Flatwork Tier Relationship Specialty Start Date End Date Joss Winchester MD PCP - General Internal Medicine 02/14/15 [facility] [place] [address] documented as of this encounter
--- OUTSIDE RECORDS SUMMARY | 2022-06-26 08:10 | XMS_ITS | Encounter Summary ---
:1950 Author Organization [facility] Address [address] [place] [address] Care Team Providers Name Role Phone Dominique Winchester MD Primary Care Provider Reason for Referral Rehab Therapy Cardiac Therapy Specialty Diagnoses / Procedures Referred By Contact Refer red To Contact Crystal Houston APRN CNP [address] [place] [address] Referral ID Status Reason Start Date Expiration Date Visits Requ ested Visits Authorized Reason for Visit Auth/Cert - Closed Specialty Diagnoses / Procedures Referred By Contact Refer red To Contact Intensive Care Diagnoses CAD Hematoma following angiography Hematoma following angiography Rh Icu Procedures [facility] [address] [place] [address] Phone: Fax: Referral ID Status Reason Start Date Expiration Date Visits Requ ested Visits Authorized [id number] Closed 03/01/2015 02/29/2016 1 1 Encounter Details Date Type Department Care Team Description 02/28/2015 - Hospital Encounter [facility], Post surgical percutaneous transluminal coronary angioplasty status (Primary Dx); 03/01/2015 [facility] Pj Luna MD ST elevation myocardial infarction (STEM I), unspecified artery (H); [address] CAD (coronary artery disease); [address] Status post coronary angioplasty; [place] Hyperlipidemi a; [id number] Ischemic cardiomyopathy [phone] Social History Tobacco Use Types Packs/Day Years Used Date Smoking Tobacco: Former Cigarettes 1 Quit : 02/07/2015 Alcohol Use Standard Drinks/Week Comments No 0 (1 standard drink = 0.6 oz pure alcoho l) Sex Assigned at Date Recorded Not on file documented as of this encounter Last Filed Vital Signs Vital Sign Reading Time Taken Comments Blood Pressure 125/72 03/01/2015 9:00 AM CDT Pulse - - Temperature 36.6 ??C (97.9 ??F) 03/01/2015 8:00 AM CDT Respiratory Rate 19 03/01/2015 9:00 AM CDT Oxygen Saturation 99% 03/01/2015 8:00 AM CDT Inhaled Oxygen Concentration - - Weight 86.4 kg (190 lb 7.6 oz) 03/01/2015 6:00 AM CDT Height 175.3 cm (5' 9.02) 02/28/2015 9:00 AM CDT Body Mass Index 28.12 02/28/2015 9:00 AM CDT documented in this encounter Discharge Summaries Crystal Houston APRN CNP - 03/01/2015 8:19 AM CDT Discharge summary dictated #[id number] Crystal Houston APRN CNP - 03/01/2015 8:19 AM CDT PRIMARY CARE PHYSICIAN: Dr. Dominique Winchester. INDEXER: Dr. Mel Reza. PAST MEDICAL HISTORY: 1. Coronary artery disease. 2. Ischemic cardiomyopathy. 3. Hyperlipidemia. 4. Tobacco abuse. DISCHARGE DIAGNOSES: 1. Coronary artery disease, status post elective stenting to an LAD and right coronary artery on 02/28/2015. 2. Hyperlipidemia. 3. Tobacco use. 4. Ischemic cardiomyopathy. DISCHARGE MEDICATIONS: Include: 1. Aspirin 81 mg 1 p.o. q. daily. 2. Sublingual nitroglycerin 0.4 mg p.r.n. as needed for chest pain. 3. Atorvastatin 40 mg 1 p.o. daily. 4. Lisinopril 5 mg 1 p.o. daily. 5. Carvedilol 3.125 mg b.i.d. 6. Brilinta 90 mg 1 p.o. b.i.d. 7. Amitriptyline 25 mg 1 p.o. each day at bedtime. HOSPITAL COURSE: Mr. Neptali Bender had a recent hospital admission for ST elevated myocardial infarction on 02/07/2015. He underwent urgent aspiration thrombectomy and drug-eluting stent to occluded mid circumflex vessel, reestablishing a good flow. At that time, he was noted to have occlusion ofhis mid-LAD and 80-90% proximal and mid right coronary artery disease. LV gram at that time demonstrated left ventricular ejection fraction of 45%. A followup echocardiogram the next day did show normalization of his LV function. He did well in follow up with minimal chest pain. He was brought back for elective percutaneous intervention on 02/28/2015. He underwent placement of a 2.25 x 16 mm drug-eluting stent to a complete total occlusion of his mid-LAD, reestablishing good flow with 0% residual stenosis. In addition, he underwent a 3.0 x 38 mm drug-eluting stent to a 90% proximal mid right coronary artery lesion, reestablishing good flow. He was noted to have patency of his previous circumflex stent in one that was previously stented in 1996. In addition, he was known to have remaining 50% distal right coronary artery disease and 40% proximal right coronary artery disease. There were no procedural complications. He did receive angioseal and did develop some oozing post-angiogram with a small hematoma, in which he stayed in the hospital overnight for observation. He remained hemodynamically stable. There was no worsening of his hematoma. His oozing did stop. Followup hemoglobin was within normal limits. He did not exhibit any signs and symptoms of heart failure. VITAL SIGNS: Blood pressure 114/76, heart rate is 63 beats per minute and is regular, respirations 16, temperature 97.2, oxygen saturation 99% on room air. His weight 190 pounds. LABORATORY: Post-procedure includes sodium 137, potassium 4.2, BUN of 13, creatinine 0.97, glucose level of 105, calcium of 8.0, white blood cell count 4.9, hemoglobin of 13, hematocrit 39, platelet count 216,000. EKG revealed sinus rhythm with a heart rate of 66 beats per minute with some T-wave changes noted in anterior lateral leads. PHYSICAL EXAMINATION: GENERAL: The patient is alert and oriented x3. NECK: Supple, no jugular venous distention. LUNGS: Clear to auscultation bilaterally. CARDIOVASCULAR: Regular rate and rhythm, no murmurs, gallops noted. ABDOMEN: Nontender, nondistended. Positive bowel sounds. EXTREMITIES: Right femoral puncture site without any current bleeding. There is a small soft hematoma noted around puncture site with some distal ecchymosis. There is no audible bruit. Distal DP and PTpalpable bilaterally. There is no edema. DISCHARGE INSTRUCTIONS: The patient is dispositioned to home. Condition is stable. ACTIVITY: No driving for 48 hours, no lifting anything greater than 10 pounds, bending, stooping or squatting for about a week. DIET: Low-cholesterol, low-saturated fat, low-sodium diet. FOLLOWUP: The patient has followup scheduled with Crystal Houston, nurse practitioner at the [facility] next week. We will obtain a BMP at that time and a lipid panel. In addition,he will undergo echocardiogram in about a month and he has scheduled office visit with Dr. Juaquin Serrano. He is aware to remain on Brilinta for 1 full year without interruption until 02/2016. He will continue participating in cardiac rehabilitation starting next week. MEL REZA MD, FACC As dictated by CRYSTAL HOUSTON APRN, CNP MT: #[id number] Name: NEPTALI NICOLE MRN: [id number] Account: [id number] : 1950 Admit Date: Discharge Date: Document: [id number] cc: Mel Reza MD, FACC DOMINIQUE WINCHESTER MD documented in this encounter Discharge Instructions Discharge InstructionsCarter Haines RN - 02/28/2015 3:33 PM CDT Going Home after an Angioplasty or Stent Placement (Cardiac) Patient Name: Neptali Nicole Date of Procedure: February 28, 2015 Doctor:Kelsey After you go home: ?? Have an adult stay with you for 24 hours. ?? Drink plenty of fluids. ?? You may eat your normal diet, unless your doctor tells you otherwise. ?? For 24 hours: ?? Relax and take it easy. ?? Do NOT smoke. ?? Do NOT make any important or legal decisions. ?? Do NOT drive or operate machines at home or at work. ?? Do NOT drink alcohol. ?? Remove the Band-Aid after 24 hours. If there is minor oozing, apply another Band-aid and remove it after 12 hours. ?? For 2 days, do NOT have sex or do any heavy exercise. ?? Do NOT take a bath, or use a hot tub or pool for at least 3 days. You may shower. Care of groin site It is normal to have a small bruise or lump at the site. ?? Do not scrub the site. ?? For the first 2 days: Do not stoop or squat. When you cough, sneeze or move your bowels, hold your hand over the puncture site and press gently. ?? Do not lift more than 10 pounds for at least 3 to 5 days. ?? Do not use lotion or powder near the puncture site for 3 days. If you start bleeding from the site in your groin, lie down flat and press firmly on the site. Call your doctor as soon as you can. Medicines ?? If you have started taking Plavix or Effient, do not stop taking it until you talk to your heart doctor (scagliola mechanic). ?? If you are on metformin (Glucophage), do not restart it until you have blood tests (within 2 to 3days after discharge). When your doctor tells you it is safe, you may restart the metformin. ?? If you have stopped any other medicines, check with your nurse or provider about when to restart them. Call 911 right away if you have bleeding that is heavy or does not stop. Call your doctor if: ?? You have a large or growing hard lump around the site. ?? The site is red, swollen, hot or tender. ?? Blood or fluid is draining from the site. ?? You have chills or a fever greater than 101??F (38??C). ?? Your leg or arm feels numb or cool. ?? You have hives, a rash or unusual itching. [facility]: [phone] (7 days a week) We will contact you tomorrow for follow-up. AttachmentsThe following attachments cannot be sent through Care Everywhere. CARVEDILOL ORAL TABLET (CENTRAL AFRICAN)TICAGRELOR (CENTRAL AFRICAN)ASPIRIN ORAL TABLET (CENTRAL AFRICAN)LISINOPRIL (CENTRAL AFRICAN)AMITRIPTYLINE (CENTRAL AFRICAN)NITROGLYCERIN SUBLINGUAL TABLET (CENTRAL AFRICAN)FAST-ACTING NITROGLYCERIN, DISCHARGE INSTRUCTIONS: TAKING (CENTRAL AFRICAN)documented in this encounter Medications at Time of [...] documented as of this encounter Progress Notes Crystal Houston APRN CNP - 03/01/2015 7:40 AM CDT Cardiology Progress Note Crystal Houston CNP Assessment and Plan: Admit (02/28) for elective PCI to LAD and RCA CAD: -s/p STEMI (02/07/15) S/p stent to mid CFX -(02/28) s/p 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 Cardiac rehab CM: -ischemic. Initial LVEF 45%---> normalized the day after STEMI -No LV gram done (02/28) -No s&s of CHF -continue bblocker/CAMMIE-I Mixed hyperlipidemia: -on Lipitor 40mg -lipid panel in near future Interval History: No CP/SOB/palpitations. Slept well Medications: ??? sodium chloride (PF) 3 mL Intracatheter Q8H ??? aspirin EC 81 mg Oral Daily ??? sodium chloride (PF) 3 mL Intracatheter Q8H ??? ticagrelor 90 mg Oral Q12H Physical Exam: Blood pressure 109/69, temperature 97.2 ??F (36.2 ??C), temperature source Oral, resp. rate 10, height 1.753 m (5' 9.02), weight 86.4 kg (190 lb 7.6 oz), SpO2 96 %. Wt Readings from Last 3 Encounters: 03/01/15 86.4 kg (190 lb 7.6 oz) 02/27/15 87.544 kg (193 lb) 02/24/15 87.454 kg (192 lb 12.8 oz) I/O last 3 completed shifts: In: 2553 [P.O.:930; I.V.:1623] Out: 1500 [Urine:1500] CONST: Alert and oriented x3 LUNGS: CTA bilaterally CARDIO: RRR, S1, S2 No murmurs noted ABD: Soft +BS EXT: No edema 2+DP bilaterally Right femoral puncture site without bleed. Soft small hematoma Data: TELE: SR CBC Recent Labs Lab 03/01/15 0551 02/27/15 1402 WBC 4.9 6.3 HGB 13.5 14.2 PLT 216 279 BMP Recent Labs Lab 03/01/15 0551 02/27/15 1402 NA 137 139 POTASSIUM 4.2 4.3 CHLORIDE 103 102 LUCRECIA 8.0* 8.7 CO2 27 28 BUN 13 12 CR 0.97 0.95 GLC 105* 94 Recent Labs Lab Test 02/08/15 0515 CHOL 201* HDL 24* LDL 112 TRIG 325* CHOLHDLRATIO 8.4* TROP Lab Results Component Value Date TROPI 4.991* 02/08/2015 TROPI 8.347* 02/07/2015 TROPI 1.546* 02/07/2015 TROPONIN 0.00 02/07/2015 BNP No results for input(s): NTBNPI, NTBNP in the last 168 hours. Deandre Licea RN - 02/28/2015 10:32 PM CDT Afebrile, vital signs stable. Angio site right groin unchanged; no oozing, bleeding or swelling. No extension of ecchymotic area. Up now with assist of one. Sat on edge of bed x 2 min, then stood and ambulated to bathroom. No weakness or dizziness. Complains of back stiffness and soreness at angio site ---PRN pain medication given. Patient up in chair currently, watching TV. Traci Negron RN - 02/28/2015 4:23 PM CDT Rt.groin puncture bleeding 20cc at a time with small hematoma. Pressure held 10- 15 min twice. notified and order pt to stay in icu tonight. documented in this encounter Miscellaneous Notes Plan of Care - Perla Maxwell RN - 03/01/2015 10:35 AM CDT Problem: Discharge Planning Goal: Discharge Planning (Adult, OB, Behavioral, Peds) Pt discharge instructions post cardiac cath and stent placement. Verbalizes understanding of medication routine, side effects. Encouraged use of pill box at home. Discussed dietary modifications, and pt states he has increased his fish intake, avoiding red meats. Also successfully stopped smoking 1 month ago. Will follow up with [facility] clinic and out pt rehab. Utilization Review - Gurpreet Ford DO - 03/01/2015 9:19 AM CDT [facility] Admission Status; Secondary Review Determination Admission Date: 02/28/2015 Under the authority of the Utilization Management Committee, the utilization review process indicated a secondary review on the above patient. The review outcome is based on review of the medical records, discussions with staff, and applying clinical experience noted on the date of the review. (x) Outpatient Status Appropriate - This patient does not meet hospital inpatient criteria. If this patient's primary payer is Medicare and was admitted as an inpatient, Condition Code 44 should be used and patient status changed to outpatient recovery. RATIONALE FOR DETERMINATION 64 year old year old male had a an elective coronary angiogram with stent placement x2. Patient was admitted to the hospital after the procedure as he had a small oozing hematoma at the puncture site. The procedure is not on the inpatient list. The patient had no significant complications overnight and plan is for discharge this morning. The severity of illness, intensity of service provided, expected LOS and risk for adverse outcome doesn't meet inpatient hospital admission. The case was discussed with Crystal Houston NP who agrees and will place the outpatient order. The information on this document is developed by the utilization review team in order for the business office to ensure compliance. This only denotes the appropriateness of proper admission status and does not reflect the quality of care rendered. The definitions of Inpatient Status and Observation Status used in making the determination above are those provided in the CMS Coverage Manual, Chapter 1 and Chapter 6, section 70.4. Sincerely, Gurpreet Ford DO MPH Physician Advisor Utilization . Plan of Care - Wnedy Galvan OT - 03/01/2015 8:45 AM CDT Problem: Goal Outcome Summary Goal: Goal Outcome Summary OT/Cardiac Rehab: Order received, chart reviewed; pt had STEMI on 02/07/15 and had elective PCI to LAD & RCA 02/28 had planned to discharge home following procedure but had small hematoma and bleedingat angio site at R groin; per discussion with RN and pt, pt doing well, he is aware of all the precautions and has plan for return to cardiac rehab next week per discussion with MD, no IP cardiac rehabneeds identified, will complete order with pt discharging home today. Thank you for consult. Plan of Care - Cha Ray RN - 03/01/2015 6:46 AM CDT Pt alert and oriented, uses the call light appropriately. Pt's right groin site bruised, no further bleeding noted. Pt plans to go home today. Pharmacy-Admission Medication History - Kulwinder Goldsmith [facility] - 02/28/2015 5:46 PM CDT Admission medication history interview status for this patient is complete. See [facility] admission navigator for allergy information, prior to admission medications and immunization status. 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 No Prior to Admission medications Medication Sig Last Dose Taking? Auth Provider aspirin EC 81 MG EC tablet Take 1 tablet (81 mg) by mouth daily 02/28/2015 at Unknown time Yes Suly Silva APRN CNP nitroglycerin (NITROSTAT) 0.[address] 1 tablet (0.4 mg) under the tongue every 5 minutes as needed for chest pain Yes Suly Silva APRN CNP atorvastatin (LIPITOR) 40 MG tablet Take 1 tablet (40 mg) by mouth every evening 02/27/2015 at Unknowntime Yes Suly Silva APRN CNP lisinopril (PRINIVIL,ZESTRIL) 5 MG tablet Take 1 tablet (5 mg) by mouth daily 02/28/2015 at Unknown time Yes Suly Silva APRN CNP carvedilol (COREG) 3.125 MG tablet Take 1 tablet (3.125 mg) by mouth 2 times daily (with meals) 02/28/2015 at am Yes Suly Silva APRN CNP ticagrelor (BRILINTA) 90 MG tablet Take 1 tablet (90 mg) by mouth every 12 hours 02/28/2015 at am Yes Suly Silva APRN CNP AMITRIPTYLINE HCL PO Take 25 mg by mouth At Bedtime 02/27/2015 at Unknown time Yes Reported, Patient Plan of Care - Carter Haines RN - 02/28/2015 3:37 PM CDT Developed small collection of blood under tegaderm at puncture site, small knot like area around puncture site, pressure held for 10 minutes, knot area softer, smaller, no new oozing noted, pedal pulses palpable, denies any pain or discomfort, site redressed. documented in this encounter Plan of Treatment Scheduled Referrals Name Type Priority Associated Diagnoses Order S chedule Cardiac Rehab Referral Referral Routine Postsurgical percu tanealen Ordered: 03/01/2015 transluminal coronary angioplasty status documented as of this encounter Procedures Procedure Name Priority Date/Time Associated Diagnosis Comme nts BASIC METABOLIC Routine 03/01/2015 5:51 AM Postsurgical Result s for this PANEL CDT percutaneous procedure are i n transluminal coronary the re sults angioplasty status section. CBC WITH PLATELETS Routine 03/01/2015 5:51 AM Postsurgical Res ults for this CDT percutaneous procedure are i n transluminal coronary the re sults angioplasty status section. MRSA CULTURE STAT 02/28/2015 6:17 PM Postsurgical Results f or this CDT percutaneous procedure are i n transluminal coronary the re sults angioplasty status section. EKG 12-LEAD, TRACING STAT 02/28/2015 5:29 PM R esults for this ONLY CDT procedure are i n the results section. EKG 12-LEAD, TRACING STAT 02/28/2015 3:26 PM CAD (coronary artery Results for this ONLY CDT disease) procedure are in Status post coronary the res ults angioplasty section. CORONARY ANGIOGRAPHY Routine 02/28/2015 12:44 ST elevation Res ults for this ADULT ORDER PM CDT myocardial infarction proced ure are in (STEMI), unspecified the res ults artery (H) section. ACTIVATED CLOTTING Routine 02/28/2015 12:22 ST elevation Resul ts for this TIME POCT PM CDT myocardial infarction proced ure are in (STEMI), unspecified the res ults artery (H) section. ACTIVATED CLOTTING Routine 02/28/2015 12:04 ST elevation Resul ts for this TIME POCT PM CDT myocardial infarction proced ure are in (STEMI), unspecified the res ults artery (H) section. EKG 12-LEAD, TRACING Routine 02/28/2015 10:17 Res ults for this ONLY AM CDT procedure are i n the results section. documented in this encounter Results ALT (03/08/2015 1:40 PM CDT) P athologist Signature ALT 56 0 - 70 U/L [facility] Specimen Anatomical Collection Method Collection Time Receive d Time (Source) Location / / Volume Laterality Blood specimen 03/08/2015 1:40 PM 015 1:43 (specimen) CDT PM CDT Crystal Houston APRN [employer] [facility] - BLOOD ORDERABLES Performing Organization Address City/State/ZIP Code Phon e Number [facility] [address] [place], [place] [address] [facility] [address] [place], [place] [address], [facility] [phone] (ABNORMAL) Lipid Profile (03/08/2015 1:40 PM CDT) athologist Signature Cholesterol 164 <200 mg/dL [facility] Comment: LDL Cholesterol is the primary guide to therapy. The NCEP recommends further evaluation of: patients with cholesterol greater than 200 mg/dL if additional risk facto rs are present, cholesterol greater than 240 mg/dL, triglycerides greater than 1 50 mg/dL, or HDL less than 40 mg/dL. Triglycerides 203 (H) 0 - 150 mg/dL [facility] Comment: Fasting specimen HDL Cholesterol 36 (L) >40 mg/dL [facility] LDL Cholesterol Calculated 87 0 - 129 mg/dL [facility] Comment: LDL Cholesterol is the primary guide to therapy: LDL-cholesterol goal in high risk patients is <100 mg/dL and in very high risk patients is <70 mg/dL. VLDL-Cholesterol 41 (H) 0 - 30 mg/dL [facility] Cholesterol/HDL Ratio 4.6 0.0 - 5.0 [facility] Specimen Anatomical Collection Method Collection Time Receive d Time (Source) Location / / Volume Laterality Blood specimen 03/08/2015 1:40 PM 015 1:43 (specimen) CDT PM CDT Crystal Houston APRN [employer] [facility] - BLOOD ORDERABLES Performing Organization Address City/State/ZIP Code Phon e Number [place] [address] [place], [place] [address] [facility] [address], [place] [address] [phone] (ABNORMAL) Basic metabolic panel (03/08/2015 1:40 PM CDT) athologist Signature Sodium 136 133 - 144 [place] mmol/L [facility] Potassium 4.4 3.4 - 5.3 [place] mmol/L [facility] Chloride 105 94 - 109 [place] mmol/L [facility] Carbon Dioxide 21 20 - 32 [place] mmol/L [facility] Anion Gap 10 3 - 14 [place] mmol/L [facility] Glucose 104 (H) 70 - 99 [place] mg/dL [facility] Urea Nitrogen 12 7 - 30 [place] mg/dL [facility] Creatinine 0.89 0.66 - [place] 1.25 mg/dL [facility] GFR Estimate 85 >60 [place] mL/min/1.[address] Comment: Non GFR Calc GFR Estimate If Black >90 >60 mL/min/1.7m2 F [facility] GFR Calc HOSP ITAL Calcium 9.1 8.5 - 10.1 mg/dL [facility] Specimen Anatomical Collection Method Collection Time Receive d Time (Source) Location / / Volume Laterality Blood specimen 03/08/2015 1:40 PM 015 1:43 (specimen) CDT PM CDT Crystal Houston APRN [employer] [facility] - BLOOD ORDERABLES Performing Organization Address City/State/ZIP Code Phon e Number [facility] [address] [place] [address] [facility] [address] [phone] (ABNORMAL) CBC with platelets (03/01/2015 5:51 AM CDT) Analysis Performed At Patho logist Time Signature WBC 4.9 4.0 - 11.0 [place] 10e9/L [facility] RBC Count 4.49 4.4 - 5.9 [place] 10e12/L [facility] Hemoglobin 13.5 13.3 - [place] 17.7 g/dL [facility] Hematocrit 39.9 (L) 40.0 - [place] 53.0 % [facility] MCV 89 78 - 100 [place] fl [facility] MCH 30.1 26.5 - [place] 33.0 pg [facility] MCHC 33.8 31.5 - [place] 36.5 g/dL [facility] RDW 15.0 10.0 - [place] 15.0 % [facility] Platelet Count 216 150 - 450 [place] 10e9/L [facility] Specimen Anatomical Collection Method Collection Time Receive d Time (Source) Location / / Volume Laterality Blood specimen 03/01/2015 5:51 AM 015 5:57 (specimen) CDT AM CDT Pj Cole MD LAB - BLOOD ORDERABLES Performing Organization Address City/[facility] Phon e Number Jeremy [facility] [address] [place], [place] [address] [facility] [address], [place] [address], [facility] [phone] (ABNORMAL) Basic metabolic panel (03/01/2015 5:51 AM CDT) athologist Signature Sodium 137 133 - 144 [place] mmol/L [facility] Potassium 4.2 3.4 - 5.3 [place] mmol/L [facility] Chloride 103 94 - 109 [place] mmol/L [facility] Carbon Dioxide 27 20 - 32 [place] mmol/L [facility] Anion Gap 7 3 - 14 [place] mmol/L [facility] Glucose 105 (H) 70 - 99 [place] mg/dL [facility] Urea Nitrogen 13 7 - 30 [place] mg/dL [facility] Creatinine 0.97 0.66 - [place] 1.25 mg/dL [facility] GFR Estimate 78 >60 [place] mL/min/1.[address] Comment: Non GFR Calc GFR Estimate If Black >90 >60 mL/min/1.7m2 F [facility] GFR Calc HOSP ITAL Calcium 8.0 (L) 8.5 - 10.1 mg/dL [facility] Specimen Anatomical Collection Method Collection Time Receive d Time (Source) Location / / Volume Laterality Blood specimen 03/01/2015 5:51 AM 015 5:57 (specimen) CDT AM CDT Pj oCle MD LAB - BLOOD ORDERABLES Performing Organization Address City/[facility]/ZIP Code Phon e Bibi Luna [facility] [address], [place] [address] [facility] [address], [place] [address] 7, [facility] [phone] Methicillin resistant staph aureus cult (02/28/2015 6:17 PM CDT) Patholo gist Method Time Signature Specimen Nares [facility] Culture Micro No MRSA INFECTIOUS isolated DISEASE DIAGNOSTIC LABORATORY Micro Report FINAL INFECTIOUS Status 03/02/2015 DISEASE DIAGNOSTIC LABORATORY Specimen Anatomical Collection Method Collection Time Receive d Time (Source) Location / / Volume Laterality Specimen from 02/28/2015 6:17 PM 02/29/20 15 6:25 nose (specimen) CDT PM CDT Pj Cole MD LAB - MICRO GENERAL ORDERABL ES Performing Organization Address City/[facility]/ZIP [facility] Phon e Number INFECTIOUS DISEASES [address] [place] [address] DIAGNOSTIC LABORATORY, [facility] [address] [place], [place] [address] [facility] [phone] INFECTIOUS DISEASE [address] [place] [address], [facility] DIAGNOSTIC LABORATORY EKG 12-lead, tracing only (02/28/2015 5:29 PM CDT) [facility] Method Time Signature Interpretation ECG Click View RADIOLOGY Image link RESULTS to view waveform and result Specimen (Source) Anatomical Collection Method Collection Time Re ceived Time Location / / Volume Laterality 02/28/2015 5:29 PM CDT Pj Cole MD ECG ORDERABLES Performing Organization Address City/[facility]/ZIP Code Phon e Number RADIOLOGY RESULTS EKG 12-lead, tracing only (02/28/2015 3:26 PM CDT) [facility] [employer] Method Time Signature Interpretation ECG Click View RADIOLOGY Image link RESULTS to view waveform and result Specimen (Source) Anatomical Collection Method Collection Time Re ceived Time Location / / Volume Laterality 02/28/2015 3:26 PM CDT Pj Cole MD ECG ORDERABLES Performing Organization Address City/[facility] Phon e Number RADIOLOGY RESULTS Cardiac Cath: Coronary Angiography Adult Order (02/28/2015 12:44 PM CDT) Anatomical Region Laterality Modality Radio Fluoroscopy, R adio Fluoroscopy Specimen (Source) Anatomical Location Collection Method / Collectio n Time Received Time / Laterality Volume Narrative 02/28/2015 2:20 PM CDT LIMITED LEFT HEART 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 Unfortunat rudolph he continued to smoke cigarettes the entire time and has eleva leticia cholesterol. He presented to this hospital with a lateral myocardi al infarction approximately 2-[address] Dominique Frye di anju aspiration of the clot in the left circumflex and placed a new sarbjit nt in the mid to distal left circumflex. At that time the old stent f rom the proximal left circumflex was patent. The LAD was essen tially 100% occluded with GERSON 1 flow, and there was mild to moderate d iffuse disease in the right coronary artery. We were able to wire the LAD. We predila leticia with a 2.0 NC balloon. We placed a Promus 2.25 x 16 mm stent in th e mid LAD and post dilated with a 2.25 NC balloon. Final results sh ow that the LAD, which was essentially 100% occluded, is now widely patent with 0% narrowing. There remains additional disease, no mor e than mild to moderate, approximately 15 mm distal to the stent. Some of this may be diffuse disease and underfilling. The LAD is sti ll a small vessel but larger now, and now dye penetrates all the way to the apex. Right coronary artery: ??The right coron yunior artery has diffuse disease throughout its entire course. Proximally near the conus branch there is a 30% narrowing, and there is followe d by this slight aneurysmal dilatation in a side branch. In the SANTANA projection it almost looks like there could also be a dissected lorena que, although I think some of this is overlap of a small RV branch. Ju st below this in the mid RCA is a 90% narrowing which extends to the acute margin of the heart. At the acute margin of the heart is a 70-80 % narrowing. The entire distal RCA is diffusely diseased at 40-50%. The PDA vessel has mild disease. The posterolateral system is somewhat sm all and normal. We predilated the RCA with a 2.5 balloon . We placed a Promus 3.0 x 38 mm stent in the proximal mid RCA and pos tdilated with a 3.25 NC balloon. Final results show that the RCA which had disease up to 90% was 0% narrowing. The area that looked l gagan it may have been dissected is not seen, again is most likely that i t was a slightly aneurysmal portion of the vessel with an overlying branch. There remains disease up to 30-40% in the proximal RCA above t he stent and again 40-50% disease throughout the distal RCA. Left ventriculogram not performed. The ejection fraction was 45% 2 weeks ag o at the time of the microinfarction. Next we did shoot a right femoral angiog leydi. We were able to close the common femoral with an Angio-Seal device with good results. CONCLUSION: ?? 1. 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 2. Successful stenting of a mid RCA with narrowings up to 90% down to 0; however, there is diffuse 40-50% dise ase throughout the right coronary artery. RECOMMENDATION: ??The patient will follo urszula at [facility] in the next 1-2 weeks with a pre-visit lipid panel. He will continue his same medicines as admission. Followup echocar diogram should probably be done in the next couple months. and moderately severe to severe disease throughout the right coronary artery. ??The patient now returns for st aged angioplasty. Of note, since discharge he did have recurrent ch est pain and did have to use sublingual nitroglycerin. He is on low-d ose beta chay only because of low blood pressure and pulse. He did not tolerate higher doses initially. Followup lipids are scheduled for the next couple weeks and he has successfully stopped smoking. ??H eart catheterization is requested. RESULTS: ?? Left main artery. The left main artery h as trivial narrowing. Left anterior descending: The LAD is not a particularly large vessel. There is mild diffuse disease in the pro ximal LAD up to 20-25%. In the mid LAD after the third diagonal vessel, the LAD is essentially occluded at 99%, but the occlusion or se gment missing is very relatively short. There is only GERSON 1 f low to the remainder of the LAD and unfortunately it is a small diam eter LAD, probably because it has been underfilled for a while but als o because of diffuse disease. The left circumflex stent proximally cheli t was placed years ago is patent. The new left circumflex stent in the mid is widely patent. There remains disease up to 30-50% elsew here in the left circumflex in the OM. cc: ??MD PJ Ram MD Procedure Note Pj Cole MD - 02/28/2015Format ting of this note might be different from the original. 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 Unfortunat rudolph he continued to smoke cigarettes the entire time and has eleva leticia cholesterol. He presented to this hospital with a lateral myocardi al infarction approximately 2-[address] Dominique Frey di anju aspiration of the clot in the left circumflex and placed a new sarbjit nt in the mid to distal left circumflex. At that time the old stent f rom the proximal left circumflex was patent. The LAD was essen tially 100% occluded with GERSON 1 flow, and there was mild to moderate d iffuse disease in the right coronary artery. We were able to wire the LAD. We predila leticia with a 2.0 NC balloon. We placed a Promus 2.25 x 16 mm stent in th e mid LAD and post dilated with a 2.25 NC balloon. Final results sh ow that the LAD, which was essentially 100% occluded, is now widely patent with 0% narrowing. There remains additional disease, no mor e than mild to moderate, approximately 15 mm distal to the stent. Some of this may be diffuse disease and underfilling. The LAD is sti ll a small vessel but larger now, and now dye penetrates all the way to the apex. Right coronary artery: The right coronar y artery has diffuse disease throughout its entire course. Proximally near the conus branch there is a 30% narrowing, and there is followe d by this slight aneurysmal dilatation in a side branch. In the SANTANA projection it almost looks like there could also be a dissected lorena que, although I think some of this is overlap of a small RV branch. Ju st below this in the mid RCA is a 90% narrowing which extends to the acute margin of the heart. At the acute margin of the heart is a 70-80 % narrowing. The entire distal RCA is diffusely diseased at 40-50%. The PDA vessel has mild disease. The posterolateral system is somewhat sm all and normal. We predilated the RCA with a 2.5 balloon . We placed a Promus 3.0 x 38 mm stent in the proximal mid RCA and pos tdilated with a 3.25 NC balloon. Final results show that the RCA which had disease up to 90% was 0% narrowing. The area that looked l gagan it may have been dissected is not seen, again is most likely that i t was a slightly aneurysmal portion of the vessel with an overlying branch. There remains disease up to 30-40% in the proximal RCA above t he stent and again 40-50% disease throughout the distal RCA. Left ventriculogram not performed. The ejection fraction was 45% 2 weeks ag o at the time of the microinfarction. Next we did shoot a right femoral angiog leydi. We were able to close the common femoral with an Angio-Seal device with good results. CONCLUSION: 1. 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 2. Successful stenting of a mid RCA with narrowings up to 90% down to 0; however, there is diffuse 40-50% dise ase throughout the right coronary artery. RECOMMENDATION: The patient will followu p at [facility] in the next 1-2 weeks with a pre-visit lipid panel. He will continue his same medicines as admission. Followup echocar diogram should probably be done in the next couple months. and moderately severe to severe disease throughout the right coronary artery. The patient now returns for stag ed angioplasty. Of note, since discharge he did have recurrent ch est pain and did have to use sublingual nitroglycerin. He is on low-d ose beta chay only because of low blood pressure and pulse. He did not tolerate higher doses initially. Followup lipids are scheduled for the next couple weeks and he has successfully stopped smoking. Hea rt catheterization is requested. RESULTS: Left main artery. The left main artery h as trivial narrowing. Left anterior descending: The LAD is not a particularly large vessel. There is mild diffuse disease in the pro ximal LAD up to 20-25%. In the mid LAD after the third diagonal vessel, the LAD is essentially occluded at 99%, but the occlusion or se gment missing is very relatively short. There is only GERSON 1 f low to the remainder of the LAD and unfortunately it is a small diam eter LAD, probably because it has been underfilled for a while but als o because of diffuse disease. The left circumflex stent proximally cheli t was placed years ago is patent. The new left circumflex stent in the mid is widely patent. There remains disease up to 30-50% elsew here in the left circumflex in the OM. cc: MD PJ Ram MD Suly Silva [employer] CV CARDIAC CATH OR DERABLES (ABNORMAL) Activated clotting time POCT (02/28/2015 12:22 PM CDT) athologist Signature Activated Clot 249 (H) 105 - 167 POINT OF CARE Time sec TEST, HANDHELD METER Specimen Anatomical Collection Method Collection Time Receive d Time (Source) Location / / Volume Laterality 02/28/2015 12:22 02/28/2015 PM CDT 12:36 PM CDT Pj Cole MD LAB - ENTER/EDIT POCT Performing Organization Address City/[facility]/ZIP Code Phon e Number FV POINT OF CARE TEST, HANDHELD METER POINT OF CARE TEST, HANDHELD METER (ABNORMAL) Activated clotting time POCT (02/28/2015 12:04 PM CDT) athologist Signature Activated Clot 243 (H) 105 - 167 POINT OF CARE Time sec TEST, HANDHELD METER Specimen Anatomical Collection Method Collection Time Receive d Time (Source) Location / / Volume Laterality 02/28/2015 12:04 02/28/2015 PM CDT 12:36 PM CDT Pj Cole MD LAB - ENTER/EDIT POCT Performing Organization Address City/State/ZIP Code Phon e Number FV POINT OF CARE TEST, HANDHELD METER POINT OF CARE TEST, HANDHELD METER EKG 12-lead, tracing only (02/28/2015 10:17 AM CDT) [facility] gist Method Time Signature Interpretation ECG Click View RADIOLOGY Image link RESULTS to view waveform and result Specimen (Source) Anatomical Collection Method Collection Time Re ceived Time Location / / Volume Laterality 02/28/2015 10:17 AM CDT Mel Reza MD ECG ORDERABLES Performing Organization Address City/State/ZIP Code Phon e Number RADIOLOGY RESULTS documented in this encounter Visit Diagnoses Diagnosis Postsurgical percutaneous transluminal c oronary angioplasty status - Primary ST elevation myocardial infarction (STEM I), unspecified artery (H) CAD (coronary artery disease) Coronary atherosclerosis of unspecified type of vessel, [place] or graft Status post coronary angioplasty Postsurgical percutaneous transluminal c oronary angioplasty status Hyperlipidemia Other and unspecified hyperlipidemia Ischemic cardiomyopathy Other specified forms of chronic ischemi c heart disease Hematoma following angiography Hematoma complicating a procedure Percutaneous transluminal coronary angio plasty (PTCA) within last 14 to 24 months documented in this encounter Administered Medications Inactive Administered Medications - up to 3 most recent administrations Medication Order MAR Action Action Date Dose Rate Site 0.9% sodium chloride New Bag 02/28/2015 10:12 AM 1,000 mLs 150 mL /hr infusion CDT at 150 mL/hr, Intravenous, CONTINUOUS, 150 mL/hr IV for 2 hours prior to cardiac 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 Start at 0800 for inpatients. IF PATIENT IS RECEIVING RENAL DIALYSIS, RN to reduce rate of 0.9 % sodium chloride IV solution to 10 mL /hour (TKO) IV infusion to prevent fluid overload., Cardiac Pre-procedure, Starting on Fri02/28/15 at 0945, Until Fri02/28/15 at 1401 aspirin EC tablet 81 mg Given 03/01/2015 8:50 AM CDT 81 mg 81 mg, Oral, DAILY, First dose on Fri03/01/15 at 0800, May omit if dose given/taken pre-procedure today. Post -procedurally for CAR percutaneous coronary intervention (PCI)., Cardiac Post-procedure fentaNYL (SUBLIMAZE) injection 25-50 mcg Given 02/28/2015 11:50 AM CDT 100 mcg 25-50 mcg, Intravenous, EVERY 2 MIN PRN, moderate to severe pain, other, when verbally ordered by prescriber during the procedure., Starting on Fri02/28/15 at 1118, Doses can be exceeded under direct oversight of the patient by physician., Cardiac Intra-procedure fentaNYL (SUBLIMAZE) injection 25-50 mcg Given 02/28/2015 4:41 PM CDT 50 mcg 25-50 mcg, Intravenous, EVERY 15 MIN PRN, other, severe pain related to pulling the FEMORAL sheath out ONLY, Starting on Fri02/28/15 at 1521, For 12 hours, May repeat x1 after 15 minutes. For severe pain related to pulling the FEMORAL sheath out ONLY. Post -procedurally for CAR percutaneous coronary intervention (PCI)., Cardiac Post-procedure heparin (porcine) injection Given 02/28/2015 12:46 PM CDT 4,500 Units 1,000-10,000 Units 1,000-10,000 Units, Intravenous, EVERY 5 MIN PRN, other, bolus dose, Starting on Fri02/28/15 at 1118, when verbally ordered by prescriber during procedure. Up to a max of 25,000 units. Physician may request an additional bolus., Cardiac Intra-procedure Given 02/28/2015 11:49 AM CDT 6,000 Units HYDROcodone-acetaminophen (NORCO) 5-325 MG Given 03/01 8:55 AM CDT 2 tablets per tablet 1-2 tablet 1-2 tablet, Oral, EVERY 4 HOURS PRN, moderate to severe pain, Starting on Fri02/28/15 at 1521, Maximum acetaminophen dose from all sources= 75 mg/kg/day not to exceed 4 grams, Cardiac Post-procedure Given 03/01/2015 3:55 AM CDT 2 tablets Given 02/28/2015 10:20 PM CDT 2 tablets iopamidol (ISOVUE-370) 76% solution 100 mL Given 02/28/2015 11:00 AM CDT 180 mLs 100 mL, INTRA-ARTERIAL, ONCE, On Fri02/28/15 at 1100, For 1 dose lidocaine (PF) (XYLOCAINE) 1 % injection 300 Given 02/2015 11:51 AM CDT 100 mg mg 300 mg (30 mL), Subcutaneous, ONCE PRN, local anesthetic, Starting on Fri02/28/15 at 1118, For 1 dose, Dose may be into smaller doses dependent upon the procedure when ordered by prescriber during the procedure, Cardiac Intra-procedure midazolam (VERSED) injection 0.5-2 mg Given 02/28/2015 12:45 PM CDT 0.5 mg 0.5-2 mg, Intravenous, EVERY 2 MIN PRN, other, when verbally ordered by prescriber during the procedure., Starting on Fri02/28/15 at 1118, Doses can be exceeded under direct oversight of the patient by physician., Cardiac Intra-procedure Given 02/28/2015 12:41 PM CDT 0.5 mg Given 02/28/2015 11:50 AM CDT 2 mg nitroglycerin Cmpd syr inj, 10ml Given by Other 02/28/2015 11:5 1 AM CDT 1,000 mcg 100-200 mcg 100-200 mcg, INTRACORONARY, EVERY 1 MIN PRN, when verbally ordered by prescriber during procedure, Starting on Fri02/28/15 at 1118, Prescriber will infuse each dose, Cardiac Intra-procedure sodium chloride (PF) 0.9% PF flush 3 mL Given 03/01/2015 8:50 AM CDT 3 mLs 3 mL, Intracatheter, EVERY 8 HOURS, First dose on Fri02/28/15 at 1730, And Q1H PRN, to lock peripheral IV dormant line., Cardiac Post-procedure Given 02/28/2015 11:17 PM CDT 3 mLs Given 02/28/2015 6:26 PM CDT 3 mLs ticagrelor (BRILINTA) tablet 90 mg Given 03/01/2015 8:50 AM CDT 90 mg 90 mg, Oral, EVERY 12 HOURS, First dose on Fri02/28/15 at 2000, Post -procedurally for CAR percutaneous coronary intervention (PCI). When using maintenance Brilinta dosing in conjunction with aspirin therapy, the daily dose of aspirin should not exceed 100mg, Cardiac Post-procedure Given 02/28/2015 8:28 PM CDT 90 mg documented in this encounter Active and Recently Administered Medications Times are shown in CDT. Scheduled Medication Order 02/27/2015 02/28/2015 03/01/2015 aspirin EC tablet 81 mg (CANCELED) 0850 (Given - Provider: Perla Maxwell RN) 81 mg, Oral, DAILY, First dose on 04/08 at 0800, May omit if dose given/taken pre-procedure today. Post -procedurally for CAR percutaneous coronary intervention (PCI)., Cardiac Post-procedure iopamidol (ISOVUE-370) 76% solution 100 mL (COMPLETED) 1100 (Given - Provider: Jenise Aguilar) 100 mL, INTRA-ARTERIAL, ONCE, Fri02/28/15 at 1100, For 1 dose sodium chloride (PF) 0.9% PF flush 3 mL (CANCELED) 1825 (Given - Provider: Zeke Zavala LPN)2317 (Given - Provider: Cha Ray, FRANKLIN) 0850 (Given - Provider: Perla Maxwell, FRANKLIN) 3 mL, Intracatheter, EVERY 8 HOURS, Firs t dose on Fri02/28/15 at 1730, And Q1H PRN, to lock peripheral IV dormant line., Cardiac Post-procedure ticagrelor (BRILINTA) tablet 90 mg (CANCELED) 2027 (Given - Provider: Deandre Licea, FRANKLIN) 0850 (Given - Provider: Perla Maxwell , FRANKLIN) 90 mg, Oral, EVERY 12 HOURS, First dose on Fri02/28/15 at 2000, Post - procedurally for CAR percutaneous coronary intervention (PCI). When using maintenance Brilinta dosing in conjunction with aspirin the rapy, the daily dose of aspirin should not exceed 100m g, Cardiac Post-procedure Continuous Medication Order 02/27/2015 02/28/2015 03/01/2015 0.9% sodium chloride infusion (CANCELED) 1012 (New Bag - Provider: Traci Negron, FRANKLIN) at 150 mL/hr, Intravenous, CONTINUOUS, 1 50 mL/hr IV for 2 hours prior to cardiac 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 Start at 0800 for inpatients. IF PATIENT I S RECEIVING RENAL DIALYSIS, RN to reduce rate of 0.9 % sodium chloride IV solution to 10 mL /hour (TKO) IV infusion to prevent fluid overload., Cardiac Pre-procedure, Starting Fri02/28/15 at 0945, Until Fri02/28/15 at 1401 PRN Medication Order 02/27/2015 02/28/2015 03/01/2015 fentaNYL (SUBLIMAZE) injection 25-50 mcg (CANCELED) 1150 (Given - Provider: Traci Negron RN) 25-50 mcg, Intravenous, EVERY 2 MIN PRN, Starting Fri02/28/15 at 1118, moderate to severe pain, other, when verbally ordered by prescriber during the procedure., Doses can be exceeded under direct oversi ght of the patient by physician., Cardiac Intra-procedure fentaNYL (SUBLIMAZE) injection 25-50 mcg () 1641 (Given - Provider: Traci Negron RN) 25-50 mcg, Intravenous, EVERY 15 MIN PRN , Starting 02/28/15 at 1521, For 12 hours, other, severe pain related to pulling the FEMORAL sheath out ONLY, May repeat x1 after 15 minutes. For severe pain re lated to pulling the FEMORAL sheath out ONLY. Post -procedurally for CAR percutaneous coronary intervention (PCI)., Cardiac Post-procedure heparin (porcine) injection 1,000-10,000 Units (CANCELED) 1149 (Given - Provider: Traci Negron, FRANKLIN)1246 (Given - Provider: Traci Negron RN) 1,000-10,000 Units, Intravenous, EVERY 5 MIN PRN, other, bolus dose, Starting 02/28/15 at 1118, when verbally ordered by prescriber during procedure. Up to a max of 25,000 units. Physician may request an additional bolus., Cardiac Intra-procedure HYDROcodone-acetaminophen (NORCO) 5-325 MG per tablet 1-2 ta blet (CANCELED) 2220 (Given - Provider: Deandre Licea, RN) 0355 (Given - Provider: Cha Ray, FRANKLIN)0855 (Given - Provider: Perla Maxwell, FRANKLIN) 1-2 tablet, Oral, EVERY 4 HOURS PRN, mod erate to severe pain, Starting Tu02/28/15 at 1521, Maximum acetaminophen dose from all sources= 75 mg/kg/day not to exceed 4 grams, Cardiac Post-procedure lidocaine (PF) (XYLOCAINE) 1 % injection 300 mg (COMPLETED) 1151 (Given - Provider: Traci Negron RN) 300 mg (30 mL), Subcutaneous, ONCE PRN, local anesthetic, Starting 02/28/15 at 1118, For 1 dose, Dose may be into smaller doses dependent upon the procedure when ordered by prescriber during the procedure, Cardiac Intra-procedure midazolam (VERSED) injection 0.5-2 mg (CANCELED) 1150 (Given - Provider: Traci Negron RN)1241 (Given - Provider: Traci Negron, FRANKLIN)1245 (Given - Provider: Traci Negron RN) 0.5-2 mg, Intravenous, EVERY 2 MIN PRN, Starting Fri02/28/15 at 1118, other, when verbally ordered by prescriber during the procedure., Doses can be exceeded under direct oversight of the patient by physician., Cardiac Intra-procedure nitroglycerin Cmpd syr inj, 10ml 100-200 mcg (CANCELED) 1151 (Given by Other - Provider: Traci Negron RN) 100-200 mcg, INTRACORONARY, EVERY 1 MIN PRN, when verbally ordered by prescriber during procedure, Starting Fri02/28/15 at 1118, Prescriber will infuse each dose, Cardiac Intra-procedure documented in this encounter Care Teams Performance Architect Relationship Specialty Start Date End Date Dominique Winchester MD PCP - General Internal Medicine 02/14/15 [place] [id number] documented as of this encounter
--- OUTSIDE RECORDS SUMMARY | 2022-06-26 08:10 | XMS_ITS | Encounter Summary ---
:1950 Author Organization [facility] Address [address] [place] [address]. [place] [address] Care Team Providers Name Role Phone Joss Winchester MD Primary Care Provider Reason for Visit Reason Comments Other release from work paper work Encounter Details Date Type Department Care Team Description 02/22/2015 Documentation Only [facility] Malina Watts, Mary Anne er (release from [facility] Yulisa REID work paper work) [address] [place] [address] [address] DONOVAN Márquez [phone] Social History Tobacco Use Types Packs/Day Years Used Date Smoking Tobacco: Never Assessed Sex Assigned at Date Recorded Not on file documented as of this encounter Progress Notes Malina Watts RN - 02/22/2015 10:31 AM CDT Patient had called PMD at [facility] in [place], requesting paper work filled out release from work for Staged angiogram scheduled for 02/28/15. Had been in hospital 02/07-02/09/15 at [facility] and had stents placed at that time. Is being seen on 02/27/15 by Crystal [place]. Was encouraged to fax us what he needsfilled out or bring with to clinic visit on 02/28/15. documented in this encounter Plan of Treatment Not on filedocumented as of this encounter Visit Diagnoses Not on filedocumented in this encounter Care Teams Manager Summer Relationship Specialty Start Date End Date Joss Winchester MD PCP - General Internal Medicine 02/14/15 [facility] DONOVAN GORMAN [address] documented as of this encounter
--- OUTSIDE RECORDS SUMMARY | 2022-06-26 08:10 | XMS_ITS | Encounter Summary ---
:1950 Author Organization [place] Address [address] [place] [address] Care Team Providers Name Role Phone Joss Winchester MD Primary Care Provider Reason for Visit - Closed Specialty Diagnoses / Procedures Referred By Contact Refer red To Contact CARDIAC REHAB Diagnoses Status post coronary angioplasty [facility] [address] [place] [address] Phone: Fax: Referral ID Status Reason Start Date Expiration Date Visits V isits Requested Authorized FR- CR Closed 02/22/2015 03/24/2015 365 365 ([id number]) Encounter Details Date Type Department Care Team Description 03/10/2015 Hospital Encounter [facility] Deana Meneses APRN CNP NO INFO AVAILABLE 06/13/2022 Cardiac and Pulmonary 1, [facility] [address] [place] [address] Social History Tobacco Use Types [...] on filedocumented in this encounter Care Teams Warehouse Sorter Relationship Specialty Start Date End Date Joss Winchester MD PCP - General Internal Medicine 02/14/15 [facility] [place] [address] documented as of this encounter
--- OUTSIDE RECORDS SUMMARY | 2022-06-26 08:10 | XMS_ITS | Encounter Summary ---
:1950 Author Organization [place] Address [address] [place] [address] Care Team Providers Name Role Phone Joss Winchester MD Primary Care Provider Reason for Visit - Closed Specialty Diagnoses / Procedures Referred By Contact Refer red To Contact CARDIAC REHAB Diagnoses Status post coronary angioplasty [facility] [address] [place] [place] [address] Phone: Fax: Referral ID Status Reason Start Date Expiration Date Visits V isits Requested Authorized FR- CR Closed 02/22/2015 03/24/2015 365 365 ([id number]) Encounter Details Date Type Department Care Team Description 03/20/2015 Hospital Encounter [facility] Deana Meneses APRN CNP NO INFO AVAILABLE 06/13/2022 Cardiac and Pulmonary 1, [facility] [address] [place] [address] Social History Tobacco Use Types [...] on filedocumented in this encounter Care Teams Supervisor Engine Assembly Relationship Specialty Start Date End Date Joss Winchester MD PCP - General Internal Medicine 02/14/15 [facility] [place] [address] documented as of this encounter
--- OUTSIDE RECORDS SUMMARY | 2022-06-26 08:10 | XMS_ITS | Encounter Summary ---
:1950 Author Organization [place] Address [address] [place] [address]. [place] [address] Care Team Providers Name Role Phone Joss Burnett MD Primary Care Provider Reason for Visit (Routine) - Closed Specialty Diagnoses / Procedures Referred By Contact Refer red To Contact Cardiology Diagnoses per January, CAD nkf 03/08 Rh Echo cc Procedures ECH COMPLETE [address] [address] [facility] [address] [place], [place] [address] Phone: Fax: Referral ID Status Reason Start Date Expiration Date Visits Requ ested Visits Authorized [id number] Closed 03/09/2015 03/08/2016 1 1 Encounter Details Date Type Department Care Team Description 04/07/2015 Hospital Encounter [facility], Crystal E, Is chemic cardiomyopathy; [facility] LABEL OPERATOR PLUNGER SCOOP OPERATOR CAD (coronary artery disease) [facility] [address] [facility] [address] [facility] [address] [place] [address] [place], [place] [phone] [address] (Work) [phone] Social History Tobacco Use Types Packs/Day Years [...] Take 1 tablet (81 90 tablet 3 06/18/201 5 tabletIndications: ST mg) by mouth daily [...] Name Priority Date/Time Associated Diagnosis Comme nts ECHO LIMITED WITH Routine 04/07/2015 10:33 Ischemic cardiomyop athy Results for this OPTISON AM CDT procedure are i n the results section. documented in this encounter Results ECHO LIMITED WITH OPTISON (04/07/2015 10:33 AM CDT) Anatomical Region Laterality Modality Echocardiography Specimen (Source) Anatomical Collection Method Collection Time Re ceived Time Location / / Volume Laterality 04/07/2015 10:09 AM CDT Narrative 04/07/2015 12:46 PM CDT Interpretation Summary [facility] [address] [place] [address] Name: NEPTALI SULLIVAN : 1950 Study Date: 04/07/2015 10:09 AM Age: 64 yrs Gender: Male Patient Location: [facility] Reason For Study: Ischemic CM Ordering Physician: CRYSTAL HOUSTON Referring Physician: JOSS BURNETT Performed By: Shon Garcia SANIA BSA: 2.0 m2 Height: 69 in Weight: 191 lb HR: 69 Procedure Limited Echo Adult. Contrast Definity. Interpretation Summary There is severe inferolateral wall hypok inesis. There is moderate lateral wall hypokines is. There is moderate septal hypokinesis. See echo 02-08-15 study for full echo-cur rent study EF same or worse than 02-08 study Limited views were obtained. Left Ventricle The left ventricle is normal in size. Th e visual ejection fraction is estimated at 40-45%. There is severe inf erolateral wall hypokinesis. There is moderate lateral wall hypokinesis. There is moderate septal hypokinesis. Right Ventricle The right ventricle is normal in structu re, function and size. Mitral Valve There is trace mitral regurgitation. Report approved by: Jacki Rodriguez 04/07/2015 12:46 PM Procedure Note Pj Cole MD - 04/07/2015Format ting of this note might be different from the original. Interpretation Summary [facility] [address] [facility] [place] [address] Name: NEPTALI SULLIVAN : 1950 Study Date: 04/07/2015 10:09 AM Age: 64 yrs Gender: Male [place] [facility] Reason For Study: Ischemic CM Ordering Physician: CRYSTAL HOUSTON Referring Physician: JOSS BURNETT Performed By: Shon Garcia RDCS BSA: 2.0 m2 Height: 69 in Weight: 191 lb HR: 69 Procedure Limited Echo Adult. Contrast Definity. Interpretation Summary There is severe inferolateral wall hypok inesis. There is moderate lateral wall hypokines is. There is moderate septal hypokinesis. See echo 02-08-15 study for full echo-cur rent study EF same or worse than 02-08 study Limited views were obtained. Left Ventricle The left ventricle is normal in size. Th e visual ejection fraction is estimated at 40-45%. There is severe inf erolateral wall hypokinesis. There is moderate lateral wall hypokinesis. There is moderate septal hypokinesis. Right Ventricle The right ventricle is normal in structu re, function and size. Mitral Valve There is trace mitral regurgitation. Report approved by: Jacki Rodriguez 04/07/2015 12:46 PM Crystal Buck [place] LABEL OPERATOR PLUNGER SCOOP OPERATOR CV ECHO ORDERABLES documented in this encounter Visit Diagnoses Diagnosis Ischemic cardiomyopathy Other specified forms of chronic ischemi c heart disease CAD (coronary artery disease) Coronary atherosclerosis of unspecified type of vessel, ute or graft documented in this encounter Administered Medications Inactive Administered Medications - up to 3 most recent administrations Medication Order MAR Action Action Date Dose Rate Site perflutren diluted in saline Given 04/07/2015 10:32 AM CDT 4 mLs (DEFINITY) injection 4 mL 4 mL, Intravenous, ONCE, On Fri04/07/15 at 1045, For 1 dose documented in this encounter Care Teams Legal Transcriber Relationship Specialty Start Date End Date Joss Burnett MD PCP - General Internal Medicine 02/14/15 [facility] DONOVAN GORMAN [address] documented as of this encounter
--- OUTSIDE RECORDS SUMMARY | 2022-06-26 08:10 | XMS_ITS | Encounter Summary ---
:1950 Author Organization [place] Address [address] [place] [address] Care Team Providers Name Role Phone Joss Winchester MD Primary Care Provider Reason for Visit Rehab Therapy Cardiac Therapy (Routine) - Closed Specialty Diagnoses / Procedures Referred By Contact Refer red To Contact Cardiac Rehab / Diagnoses #3 no show on 03/29. lm to remind of next appt and attendance policy. ST elevation myocardial infarction (STEMI), unspecified artery [facility] CARDIAC REHAB Procedures TREATMENT [address] [place] [address] [address] [place] [address] Phone: Fax: Referral ID Status Reason Start Date Expiration Date Visits V isits Requested Authorized [facility]- Closed 03/25/2015 08/24/2015 36 36 ([id number]) Encounter Details Date Type Department Care Team Description 04/14/2015 Hospital Encounter [facility] Mykel-Deana Kamara APRN CNP NO INFO AVAILABLE 06/13/2022 Cardiac and Pulmonary 1, [facility] [place] [id number] [place] [address] [address] [place] [address] Social History Tobacco Use Types [...] on filedocumented in this encounter Care Teams Partner Marketing Manager Relationship Specialty Start Date End Date Joss Winchester MD PCP - General Internal Medicine 02/14/15 [facility] [place] [address] documented as of this encounter
--- OUTSIDE RECORDS SUMMARY | 2022-06-26 08:10 | XMS_ITS | Encounter Summary ---
:1950 Author Organization [facility] Address [address] [place] [address] Care Team Providers Name Role Phone Joss Winchester MD Primary Care Provider Reason for Visit Reason Onset Date Comments Previsit 02/27/2015 coronary angiogram Encounter Details Date Type Department Care Team Description 02/27/2015 Telephone [facility] Chan Seals sit (coronary [facility] Clinic Yulisa Pool RN angiogram) [address] [place] [address] [address] [place] [id number] Social History Tobacco Use Types Packs/Day Years Used Date Smoking Tobacco: Former Cigarettes 1 Quit : 02/07/2015 Alcohol Use Standard Drinks/Week Comments No 0 (1 standard drink = 0.6 oz pure alcoho l) Sex Assigned at Date Recorded Not on file documented as of this encounter Miscellaneous Notes Telephone Encounter - Chan Seals, FRANKLIN - 02/27/2015 12:54 PM CDT Phone call to patient to review prep for staged coronary intervention that is scheduled for tomorrowat 11:30. He is seeing Crystal [place] today for Risk/benefit discussion. His daughter will be trailer truck driver tomorrow and son will be acute care physical therapist. No meds to hold and he will be NPO after midnight tonight. His is on asa 81 and Brilinta. He had no difficulties with the previous angiogram. He had no questions. Orders placed in epic. FRANKLIN Whitley documented in this encounter Plan of Treatment Not on filedocumented as of this encounter Visit Diagnoses Not on filedocumented in this encounter Care Teams Pulmonary Disease Specialist Relationship Specialty Start Date End Date Joss Winchester MD PCP - General Internal Medicine 02/14/15 [place] [address] documented as of this encounter
--- OUTSIDE RECORDS SUMMARY | 2022-06-26 08:10 | XMS_ITS | Encounter Summary ---
:1950 Author Organization [facility] Address [address] [place] [address] Care Team Providers Name Role Phone Joss Winchester MD Primary Care Provider Reason for Visit Rehab Therapy Cardiac Therapy (Routine) - Closed Specialty Diagnoses / Procedures Referred By Contact Refer red To Contact Cardiac Rehab / Diagnoses #3 no show on 03/29. lm to remind of next appt and attendance policy. ST elevation myocardial infarction (STEMI), unspecified artery [facility] CARDIAC REHAB Procedures TREATMENT [address] [place] [address] [address] [place] [address] Phone: Fax: Referral ID Status Reason Start Date Expiration Date Visits V isits Requested Authorized [facility]- Closed 03/25/2015 08/24/2015 36 36 ([id number]) Encounter Details Date Type Department Care Team Description 04/19/2015 Hospital Encounter [facility] Mykel-Deana Kamara APRN CNP NO INFO AVAILABLE 06/13/2022 Cardiac and Pulmonary 1, Rh Card[facility] [place] [id number] [place] [address] [address] [place] [address] Social History Tobacco Use Types [...] on filedocumented in this encounter Care Teams Field Seismologist Relationship Specialty Start Date End Date Joss Winchester MD PCP - General Internal Medicine 02/14/15 [facility] [place] [address] documented as of this encounter
--- OUTSIDE RECORDS SUMMARY | 2022-06-26 08:10 | XMS_ITS | Encounter Summary ---
:1950 Author Organization [place] Address [address] [place] [address] Care Team Providers Name Role Phone Joss Winchester MD Primary Care Provider Encounter Details Date Type Department Care Team Description 03/08/2015 Orders Only [facility] Heart Post surgical percutaneous transluminal coronary angioplasty status; [facility] [place] Hyperlipidemia [address] [facility] [address] [place] [address] Social History Tobacco Use Types [...] Date/Time Associated Diagnosis Comme nts LIPID PROFILE STAT 03/08/2015 1:40 PM Hyperlipidemia Result s for this CDT procedure are i n the results section. ALT STAT 03/08/2015 1:40 PM Hyperlipidemia Results for this CDT procedure are i n the results section. BASIC METABOLIC STAT 03/08/2015 1:40 PM Postsurgical Result s for this PANEL CDT percutaneous procedure are i n transluminal coronary the re sults angioplasty status section. documented in this encounter Results ALT (03/08/2015 1:40 PM CDT) P athologist Signature ALT 56 0 - 70 U/L [facility] Specimen Anatomical Collection Method Collection Time Receive d Time (Source) Location / / Volume Laterality Blood specimen 03/08/2015 1:40 PM 015 1:43 (specimen) CDT PM CDT Crystal Buck Celso JEAN CNP LAB - BLOOD ORDERABLES Performing Organization Address [facility]/ZIP [facility] Phon yoana Luna [facility] [address] [place], [place] [address] [facility] [address] [place], [place] [address], [facility] [phone] (ABNORMAL) Lipid Profile (03/08/2015 1:40 PM CDT) athologist Signature Cholesterol 164 <200 mg/dL [facility] Comment: LDL Cholesterol is the primary guide to therapy. The NCEP recommends further evaluation of: patients with cholesterol greater than 200 mg/dL if additional risk facto rs are present, cholesterol greater than 240 mg/dL, triglycerides greater than 1 50 mg/dL, or HDL less than 40 mg/dL. Triglycerides 203 (H) 0 - 150 mg/dL [facility] Comment: Fasting specimen HDL Cholesterol 36 (L) >40 mg/dL [facility] LDL Cholesterol Calculated 87 0 - 129 mg/dL [facility] Comment: LDL Cholesterol is the primary guide to therapy: LDL-cholesterol goal in high risk patients is <100 mg/dL and in very high risk patients is <70 mg/dL. VLDL-Cholesterol 41 (H) 0 - 30 mg/dL [facility] Cholesterol/HDL Ratio 4.6 0.0 - 5.0 [facility] Specimen Anatomical Collection Method Collection Time Receive d Time (Source) Location / / Volume Laterality Blood specimen 03/08/2015 1:40 PM 015 1:43 (specimen) CDT PM CDT Crystal [place] APRN, CNP LAB - BLOOD ORDERABLES Performing Organization Address City/[facility]/ZIP [facility] yoana Luna [facility] [address] [place], [place] [address] [facility] [address] [place], [place] [address], [facility] [phone] (ABNORMAL) Basic metabolic panel (03/08/2015 1:40 PM CDT) athologist Signature Sodium 136 133 - 144 [place] mmol/L [facility] Potassium 4.4 3.4 - 5.3 [place] mmol/L [facility] Chloride 105 94 - 109 [place] mmol/L [facility] Carbon Dioxide 21 20 - 32 [place] mmol/L [facility] Anion Gap 10 3 - 14 [place] mmol/L [facility] Glucose 104 (H) 70 - 99 [place] mg/dL [facility] Urea Nitrogen 12 7 - 30 [place] mg/dL [facility] Creatinine 0.89 0.66 - [place] 1.25 mg/dL [facility] GFR Estimate 85 >60 [place] mL/min/1.[address] Comment: Non GFR Calc GFR Estimate If Black >90 >60 mL/min/1.7m2 F [facility] GFR Calc HOSP ITAL Calcium 9.1 8.5 - 10.1 mg/dL [facility] Specimen Anatomical Collection Method Collection Time Receive d Time (Source) Location / / Volume Laterality Blood specimen 03/08/2015 1:40 PM 015 1:43 (specimen) CDT PM CDT Crystal [place] APRN DOUGH MACHINE OPERATOR LAB - BLOOD ORDERABLES Performing Organization Address City/State/ZIP Code Phon e Number M [facility] [address] [place] [address] [facility] [address] [phone] documented in this encounter Visit Diagnoses Diagnosis Postsurgical percutaneous transluminal c oronary angioplasty status Hyperlipidemia Other and unspecified hyperlipidemia documented in this encounter Care Teams Consumer Insight Analyst Relationship Specialty Start Date End Date Joss Winchester MD PCP - General Internal Medicine 02/14/15 [facility] DONOVAN GORMAN [address] documented as of this encounter
--- OUTSIDE RECORDS SUMMARY | 2022-06-26 08:10 | XMS_ITS | Encounter Summary ---
:1950 Author Organization [place] Address [address] [place] [address] Care Team Providers Name Role Phone Joss Winchester MD Primary Care Provider Reason for Visit - Closed Specialty Diagnoses / Procedures Referred By Contact Refer red To Contact CARDIAC REHAB Diagnoses Status post coronary angioplasty [facility] [address] [place] [address] Phone: Fax: Referral ID Status Reason Start Date Expiration Date Visits V isits Requested Authorized FR- CR Closed 02/22/2015 03/24/2015 365 365 ([id number]) Encounter Details Date Type Department Care Team Description 03/24/2015 Hospital Encounter [facility] Deana Meneses APRN CNP NO INFO AVAILABLE 06/13/2022 Cardiac and Pulmonary 1, [facility] [address] [place] [address] Social History Tobacco Use Types [...] filedocumented in this encounter Care Teams Supervisor Mill Relationship Specialty Start Date End Date Joss Winchester MD PCP - General Internal Medicine 02/14/15 [facility] [place] [address] documented as of this encounter
--- OUTSIDE RECORDS SUMMARY | 2022-06-26 08:10 | XMS_ITS | Encounter Summary ---
:1950 Author Organization [facility] Address [address] [place] [address]. [place] [address] Care Team Providers Name Role Phone Joss Winchester MD Primary Care Provider Reason for Visit Reason Comments Heart Problem CAD (STEMI), Hyperlipidemia, Chronic Smoker, Mild CM (resolved), and Metabolic Syndrome. - Closed Specialty Diagnoses / Procedures Referred By Contact Refer red To Contact Diagnoses ST elevation myocardial infarction (STEMI), unspecified artery (H) Deana Reeves, [facility] NO INFO AVAILABLE 06/13/2022 Referral ID Status Reason Start Date Expiration Date Visits Requ ested Visits Authorized [id number] Closed 02/27/2015 08/26/2015 1 1 Encounter Details Date Type Department Care Team Description 02/27/2015 Office Visit [facility], Crystal E, Hyperlip idemia LDL goal <70 (Primary Dx); Heart Clinic [facility] ST elevation myocardial infarction (STEM I), unspecified artery (H) [address] [place] [address] [place], [place] [phone] (Work) [phone] Social History Tobacco Use Types Packs/Day Years Used Date Smoking Tobacco: Former Cigarettes 1 Quit : 02/07/2015 Alcohol Use Standard Drinks/Week Comments No 0 (1 standard drink = 0.6 oz pure alcoho l) Sex Assigned at Date Recorded Not on file documented as of this encounter Last Filed Vital Signs Vital Sign Reading Time Taken Comments Blood Pressure 104/66 02/27/2015 2:32 PM CDT Pulse 72 02/27/2015 2:32 PM CDT Temperature - - Respiratory Rate - - Oxygen Saturation - - Inhaled Oxygen Concentration - - Weight 87.5 kg (193 lb) 02/27/2015 2:32 PM CDT Height 175.3 cm (5' 9) 02/27/2015 2:32 PM CDT Body Mass Index 28.5 02/27/2015 2:32 PM CDT documented in this encounter Progress Notes Crystal Houston, TED ECHOCARDIOGRAPH TECHNICIAN - 02/27/2015 3:13 PM CDT HISTORY OF PRESENT ILLNESS: This is a delightful 64-year-old male who presents to [facility] today for a followup visit. He is a patient of Dr. Reza'dmitry seen in [facility] for a past medical history of: Coronary artery disease, tobacco abuse, and hyperlipidemia. Naldo admitted to [facility] on 02/07/2015 after developing chest pain while driving. Hedid note associated diaphoresis and weakness and ended up driving himself to the hospital. He was found to have an ST-elevated inferior myocardial infarction. His troponin peaked at 8. He urgently wentto coronary angiography and underwent aspiration thrombectomy and placement of a 3.5 x 16 mm drug-eluting stent to an occluded mid-circumflex vessel, reestablishing good flow. He was noted to have remaining subtotal distal LAD disease and 80% right coronary artery disease. He was placed on Brilinta samantha taken for 1 full year without interruption and started on carvedilol and lisinopril. His LV-gram d emonstrated a left ventricular ejection fraction of 45%. A followup echocardiogram later performed revealed normalization of his left ventricular function. There was mild to moderate lateral wall hypokinesia and inferolateral hypokinesia, normal right ventricular function, trace mitral regurgitation. In addition, there was an incidental finding of a 1.5 x 2.6 cm liver simple cyst. His atorvastatin was increased to 40 mg as his LDL level was 112. In addition, he was instructed to quit tobacco. He returns today for reassessment. Naldo tells me initially going home from the hospital, he had some mild weird chest pain, and he took a nitroglycerin tablet. His brief chest pain quickly went away. He believes this pain occurred because he was tired from not sleeping well. He has not experienced any further chest pain with activity or rest over the last few weeks. He has no shortness of breath. He is participating in cardiac rehab phase 2. He denies any sensations of palpitations, lightheadedness, dizziness, orthopnea or peripheral edema. PHYSICAL EXAMINATION: VITAL SIGNS: His blood pressure today is 104/66, heart rate is 72 beats per minute and is regular. His lungs are clear. EXTREMITIES: There is no peripheral edema. Right radial puncture site without bleeding, hematoma or bruit. Naldo tells me he was able to quit smoking completely since he has been home from the hospital. Earlier he had quit for 25 years and had recently restarted due to stressors in his life. Naldo did undergo aBMP, CBC and INR earlier today. This shows sodium 139, potassium 4.3, BUN 12, creatinine 0.95, INR of 0.95, PTT of 30, white blood cell count of 6.3, hemoglobin of 14, hematocrit of 41, and platelet count of 279,000. Naldo is scheduled to undergo a staged intervention of likely his right coronary artery and possibly distal LAD tomorrow. We discussed this procedure in detail, risks and benefits involved, which is to include, but not limited to: Bleeding, hematoma, reaction to sedation, IV dye nephropathy, dysrhythmias, urgent coronary bypass grafting with possible transfer to [facility], myocardial infarction, stroke, and even . The patient is in agreement and is willing to proceed. IMPRESSION AND PLAN: 1. Coronary artery disease, status post ST elevated inferior myocardial infarction and urgent aspiration thrombectomy and stenting to his occluded mid circumflex on 02/07/2015. He has known remaining 80% right coronary artery disease and subtotal distal LAD disease. He is free from any angina symptoms. He is scheduled for a staged percutaneous coronary intervention tomorrow. He has remained on Brilinta without interruption and low-dose aspirin. 2. Cardiomyopathy. Ischemic. Initial left ventricular ejection fraction of 45%. In followup, echocardiogram showed normalization of his LV function. There are no signs or symptoms of heart failure today. He has tolerated initiation of lisinopril and carvedilol. 3. Hyperlipidemia. He is now on atorvastatin 40 mg due to LDL level of 112 on 02/07/2015. Will need to repeat a lipid panel in about a month and follow up with Dr. Erdahl shortly thereafter. 4. Tobacco abuse. Naldo has successfully quit smoking and I encouraged continued cessation. Thanks for allowing me to participate in this patient's care. CRYSTAL HOUSTON APRN, LINA MT: jennifer Name: NEPTALI SULLIVAN MRN: [id number] Account: [id number] : 1950 Service Date: 02/27/2015 Document: [id number] Crystal Houston APRN CNP - 02/27/2015 3:04 PM CDT HPI and Plan: #[id number] See dictation No orders of the defined types were placed in this encounter. No orders of the defined types were placed in this encounter. There are no discontinued medications. Encounter Diagnoses Name Primary? ST elevation myocardial infarction (STEMI), unspecified artery ? ? Hyperlipidemia LDL goal <70 Yes CURRENT MEDICATIONS: Current Outpatient Prescriptions Medication Sig Dispense Refill ??? aspirin EC 81 MG EC tablet [...] by mouth daily 90 tablet 3 ??? carvedilol (COREG) 3.125 MG tablet Take 1 tablet (3.125 mg) by mouth 2 times daily (with meals) 180 tablet 3 ??? ticagrelor (BRILINTA) 90 MG tablet Take 1 tablet (90 mg) by mouth every 12 hours 60 tablet 11 ??? AMITRIPTYLINE HCL PO Take 25 mg by mouth At Bedtime ALLERGIES No Known Allergies PAST MEDICAL HISTORY: Past Medical History Diagnosis Date ??? Elevated cholesterol ??? STEMI (ST elevation myocardial infarction) ??? CAD (coronary artery disease) ??? Hyperlipidemia ??? Smoker ??? Migraine ??? Metabolic syndrome PAST SURGICAL HISTORY: Past Surgical History Procedure Laterality Date ??? Orthopedic surgery ??? Cardiac surgery FAMILY HISTORY: No family history on file. SOCIAL HISTORY: History Social History ??? Marital [...] Eyes: Positive for glasses ENT: Positive for tinnitus Respiratory: Positive for shortness of breath after sitting then getting up Cardiovascular: Negative Gastroenterology: Negative Genitourinary: Negative Musculoskeletal: Positive for joint pain;joint stiffness fingers Neurologic: Positive for migraine headaches Psychiatric: Positive for excessive stress Heme/Lymph/Imm: Negative Endocrine: Negative Physical Exam: Vitals: BP 104/66 mmHg Pulse 72 Ht 1.753 m (5' 9) Wt 87.544 kg (193 lb) BMI 28.49 kg/m2 Constitutional: cooperative;alert and oriented Skin: warm and dry to the touch Head: normocephalic Eyes: pupils equal and round;sclera white ENT: no pallor or cyanosis, dentition good Neck: carotid pulses are full and equal bilaterally;JVP normal Chest: clear to auscultation;normal symmetry Cardiac: regular rhythm;normal S1 and S2 S4 no presence of murmur Abdomen: abdomen soft;BS normoactive Vascular: pulses full and equal Extremities and Back: no edema right radial pulse palpable without audible bruit Neurological: no gross motor deficits;affect appropriate, oriented to time, person and place ANA MARIA [facility] [place] [address] documented in this encounter Plan of Treatment Not on filedocumented as of this encounter Visit Diagnoses Diagnosis Hyperlipidemia LDL goal <70 - Primary Other and unspecified hyperlipidemia ST elevation myocardial infarction (STEM I), unspecified artery (H) documented in this encounter Care Teams Member Service Representative Relationship Specialty Start Date End Date Joss Winchester MD PCP - General Internal Medicine 02/14/[address] [facility] [place] [id number] documented as of this encounter
--- OUTSIDE RECORDS SUMMARY | 2022-06-26 08:10 | XMS_ITS | Encounter Summary ---
:1950 Author Organization [facility] Address [address] [place] [address] Care Team Providers Name Role Phone Joss Winchester MD Primary Care Provider Reason for Visit Rehab Therapy Cardiac Therapy (Routine) - Closed Specialty Diagnoses / Procedures Referred By Contact Refer red To Contact Cardiac Rehab / Diagnoses #3 no show on 03/29. lm to remind of next appt and attendance policy. ST elevation myocardial infarction (STEMI), unspecified artery [facility] CARDIAC REHAB Procedures TREATMENT [address] [place] [address] [address] [place] [address] Phone: Fax: Referral ID Status Reason Start Date Expiration Date Visits V isits Requested Authorized [facility]- Closed 03/25/2015 08/24/2015 36 36 ([id number]) Encounter Details Date Type Department Care Team Description 03/31/2015 Hospital Encounter [facility] Mykel-Deana Kamara APRN CNP NO INFO AVAILABLE 06/13/2022 Cardiac and Pulmonary 1, [facility] [place] [address] [place] [address] [address] [place] [address] Social History Tobacco Use Types [...] on filedocumented in this encounter Care Teams After School Program Assistant Relationship Specialty Start Date End Date Joss Winchester MD PCP - General Internal Medicine 02/14/15 [facility] [place] [address] documented as of this encounter
--- OUTSIDE RECORDS SUMMARY | 2022-06-26 08:10 | XMS_ITS | Encounter Summary ---
:1950 Author Organization [facility] Address [address] [place] [address] Care Team Providers Name Role Phone Joss Winchester MD Primary Care Provider Reason for Visit Rehab Therapy Cardiac Therapy (Routine) - Closed Specialty Diagnoses / Procedures Referred By Contact Refer red To Contact Cardiac Rehab / Diagnoses #3 no show on 03/29. lm to remind of next appt and attendance policy. ST elevation myocardial infarction (STEMI), unspecified artery [facility] CARDIAC REHAB Procedures TREATMENT [address] [place] [address] [address] [place] [address] Phone: Fax: Referral ID Status Reason Start Date Expiration Date Visits V isits Requested Authorized [facility]- Closed 03/25/2015 08/24/2015 36 36 ([id number]) Encounter Details Date Type Department Care Team Description 04/05/2015 Hospital Encounter [facility] Mykel-Deana Kamara APRN CNP NO INFO AVAILABLE 06/13/2022 Cardiac and Pulmonary 1, Rh [facility] [place] [id number] [place] [address] [address] [place] [address] Social History Tobacco Use Types [...] - Inhaled Oxygen Concentration - - Weight 86.8 kg (191 lb 6.4 oz) 04/05/2015 1:00 PM CDT Height 175.3 cm (5' 9.02) 04/05/2015 1:00 PM CDT Body Mass Index 28.25 04/05/2015 1:00 PM CDT documented in this encounter [...] encounter Progress Notes Senthil Mcdonald MD - 04/05/2015 2:32 PM CDT OUTPATIENT CARDIAC REHAB INDIVIDUALIZED TREATMENT PLAN 90 Day Individualized Treatment Plan Certified through this date: 05/24/15 Name: Neptali Helen Sullivan Date of : 1950 Date of Treatment: 02/07/15 Age: [age] year old Gender: male Treatment Diagnosis: Myocardial Infarction Secondary Treatment Diagnosis: Stent (additional 3 stents placed 02/28/15) Hospital Location: [facility] Discharge Date: 02/09/15 Outpatient CR Start Date: 02/14/15 Primary Physician: Dr. Winchester Surgeon: Holter Technician: Dr. Reza Ejection Fraction: 45% THR (85% [...] other PCI intervention on February 28 at [facility]. informed patient that rehab would need an [...] with Physical Therapyabout appropriateness of the exercises. 03/13/15 Progress update done today. PT had an additional 3 stents placed on 02/28/15. He has been feeling good since procedure. Angiogram report states that PT does have diffuse dissease in small LAD and 40-50 % disease in RCA. Labs were rechecked on 02/28/15Continue with skilled therapy for increased exercise capacity, risk factor education and behavior change counseling. He will have another echo in a month. He has been walking for just over 1 mile at home. He remains smoke free. He retired last week. 04/05/15 Patient is making good progress within cardiac rehab. He continues to try to make dietary changes to aid in weight loss. Patient increased frequency of home exercise to every day that he is not attending [facility]. He now walks for 20-60 minutes on his off days. Patient continues to benefit from skilled therapy to educate on behavior change and risk management to achieve patient's goals. Patient and Program Goals Sessions Attended: 16 MET Goal: 5-6 Current MET Level: 4.7 Goal Pt desires to lose 1-2# per [...] of healthy cooking options such as steaming vegetabales and grilling meats. Patient still feels he [...] t remains smoke free. Stress / Psychosocial Reassessment Psycho-social Assessment: Re-assessment Patient admits to stress: Yes Current level of stress: Moderate Coping skills: exercise, distraction Patient Health Questionnaire-9 (PHQ-9) for Depression: 5-9 Minimal symptoms 10-14 Minor depression 15-19 Major depression, moderately severe > 20 Major depression, severe Completed PHQ-9 Score: 8 [facility] Function and Health Status Survey: A [...] stress to personal health Psychosocial Interventions completed: Identified 2-3 coping mechanisms for stress, Verbalized understanding of negative impact of stress to personal health Target outcome goal: Assessment for depression using PhQ-9 and [facility] questionnaires. Maximize coping skills and develop [...] this point in time. 02/24/15. Denies stress. Admittted he is bothered by his work injury to his shoulder and dealing with worker's comp and physical therapy over the past 2 years. He has an arbitraiion meeting on February 28. 03/13/15 PT has [...] playing with grandchildren when he feels stressed. Nutrition Reassessment Dietary assessment: Re-assessment Rate Your Plate - Heart Survey: Scores range from 24 to 72. The higher the score the healthier the eating choices. 52 Overweight / Obesity: Yes Age: 64 Weight: 86.818 kg (191 lb 6.4 oz) Height: 175.3 cm (5' 9.02) BMI (Calculated): 28.31 Goal weight: 82.645 kg (182 lb 3.2 [...] and is actively trying to follow the [facility] [place] diet. 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 He is [...] Monitored sessions scheduled: 18 Monitored sessions Attended: 16 Exercise Reassessment Met Level Achieved: 4.7 Resting HR: 75 bpm Exercise HR: 114 bpm Post Exercise HR: 72 bpm Resting BP: 100/74 mmHg Exercise BP: 134/60 mmHg Post Exercise BP: 114/58 mmHg RPE: 5 ECG Rhythm: Normal sinus rhythm Ectopy: None Symptoms at home: Denies symptoms Symptoms in rehab: Denies symptoms Limitations: Pt has 5# limitation for both shoulders (h/o rotator cuff tears/repairs, will need eventual shoulder replacement) Exercise Prescription Type: Aerobic exercise, Flexibility training Mode: Treadmill, Nustep Frequency: 3 daysweek Duration/Time: 30-45 min Age: 64 THR (85% [...] Heart, Medication Overview, Weight Loss Education Attended: Physician cosignature/electronic signature indicates approval of this ITP document. I have established, reviewed and made necessary changes to the individualized treatment plan and exercise prescription for this patient. documented in this encounter Plan of Treatment Not on filedocumented as of this encounter Visit Diagnoses Not on filedocumented in this encounter Care Teams Dispatcher Bus And Trolley Relationship Specialty Start Date End Date Joss Winchester MD PCP - General Internal Medicine 02/14/15 [place] [address] documented as of this encounter
--- OUTSIDE RECORDS SUMMARY | 2022-06-26 08:10 | XMS_ITS | Encounter Summary ---
:1950 Author Organization [facility] Address [address] [place] [address] Care Team Providers Name Role Phone Joss Winchester MD Primary Care Provider Reason for Visit Reason Comments Orders pre cath labs Encounter Details Date Type Department Care Team Description 02/27/2015 Orders Only [facility] Heart Sangeetha Paz S T elevation myocardial Clinic [place] RN infarction (STEMI) (H) [address] [facility] (Primar y Dx) [address] [place] [address] Social History Tobacco Use Types [...] Diagnoses Diagnosis ST elevation myocardial infarction (STEM I) (H) - Primary Acute myocardial infarction, unspecified site, episode of care unspecified documented in this encounter Care Teams Revival Clerk Relationship Specialty Start Date End Date Joss Winchester MD PCP - General Internal Medicine 02/14/15 [facility] DONOVAN GORMAN [id number] documented as of this encounter
--- OUTSIDE RECORDS SUMMARY | 2022-06-26 08:10 | XMS_ITS | Encounter Summary ---
:1950 Author Organization [facility] Address [address] [place] [address] Care Team Providers Name Role Phone Joss Winchester MD Primary Care Provider Reason for Visit Rehab Therapy Cardiac Therapy (Routine) - Closed Specialty Diagnoses / Procedures Referred By Contact Refer red To Contact Cardiac Rehab / Diagnoses #3 no show on 03/29. lm to remind of next appt and attendance policy. ST elevation myocardial infarction (STEMI), unspecified artery [facility] CARDIAC REH[facility] Procedures TREATMENT [address] [place] [address] [address] [place] [address] Phone: Fax: Referral ID Status Reason Start Date Expiration Date Visits V isits Requested Authorized [facility]- Closed 03/25/2015 08/24/2015 36 36 ([id number]) Encounter Details Date Type Department Care Team Description 04/10/2015 Hospital Encounter [facility] Mykel-Deana Kamara APRN CNP NO INFO AVAILABLE 06/13/2022 Cardiac and Pulmonary 1, [facility] [place] [id number] [place] [address] [address] [place] [address] Social History Tobacco Use Types [...] on filedocumented in this encounter Care Teams Spool Cleaner Relationship Specialty Start Date End Date Joss Winchester MD PCP - General Internal Medicine 02/14/15 [facility] [place] [place] [address] documented as of this encounter
--- OUTSIDE RECORDS SUMMARY | 2022-06-26 08:10 | XMS_ITS | Encounter Summary ---
:1950 Author Organization [facility] Address [address] [place] [address] Care Team Providers Name Role Phone Joss Winchester MD Primary Care Provider Reason for Visit - Closed Specialty Diagnoses / Procedures Referred By Contact Refer red To Contact CARDIAC REHAB Diagnoses Status post coronary angioplasty [facility] [address] [place] [address] Phone: Fax: Referral ID Status Reason Start Date Expiration Date Visits V isits Requested Authorized [facility]- CR Closed 02/22/2015 03/24/2015 365 365 ([id number]) Encounter Details Date Type Department Care Team Description 02/23/2015 Hospital Encounter [facility] Deana Meneses APRN CNP NO INFO AVAILABLE 06/13/2022 Cardiac and Pulmonary 1, [facility] [address] [place] [address] Social History Tobacco Use Types [...] on filedocumented in this encounter Care Teams Mail Messenger Relationship Specialty Start Date End Date Joss Winchester MD PCP - General Internal Medicine 02/14/15 [facility] DONOVAN GORMAN [id number] documented as of this encounter
--- OUTSIDE RECORDS SUMMARY | 2022-06-26 08:10 | XMS_ITS | Encounter Summary ---
:1950 Author Organization [place] Address [address] [place] [address] Care Team Providers Name Role Phone Joss Winchester MD Primary Care Provider Reason for Visit - Closed Specialty Diagnoses / Procedures Referred By Contact Refer red To Contact CARDIAC REHAB Diagnoses Status post coronary angioplasty [facility] [address] [place] [address] Phone: Fax: Referral ID Status Reason Start Date Expiration Date Visits V isits Requested Authorized FR- CR Closed 02/22/2015 03/24/2015 365 365 ([id number]) Encounter Details Date Type Department Care Team Description 03/13/2015 Hospital Encounter [facility] Mykel-Deana Kamara APRN CNP NO INFO AVAILABLE 06/13/2022 Cardiac and Pulmonary 1, [facility] [address] [place] [address] Social History Tobacco Use Types [...] - - Weight 87.5 kg (193 lb) 03/13/2015 1:00 PM CDT Height 175.3 cm (5' 9.02) 03/13/2015 1:00 PM CDT Body Mass Index 28.49 03/13/2015 1:00 PM CDT documented in this encounter [...] encounter Progress Notes Senthil Mcdonald MD - 03/13/2015 3:36 PM CDT OUTPATIENT CARDIAC REHAB INDIVIDUALIZED TREATMENT PLAN 60 Day Individualized Treatment Plan Certified through this date: 04/27/15 Name: Neptali Sullivan Date of : 1950 Date of Treatment: 02/07/15 Age: [age] year old Gender: male Treatment Diagnosis: Myocardial Infarction Secondary Treatment Diagnosis: Stent (additional 3 stents placed 02/28/15) Hospital Location: [facility] Discharge Date: 02/09/15 Outpatient CR Start Date: 02/14/15 Primary Physician: Dr. Winchester Surgeon: Deputy Commonwealth'S Attorney: Dr. Reza Ejection Fraction: 45% THR (85% [...] PCI intervention on February 28 at [facility]. informed patient that rehab would need an [...] remains smoke free. He retired last week. Patient and Program Goals Sessions Attended: 8 MET Goal: 5-6 Current MET Level: 4.6 Goal Pt desires to lose 1-2# per [...] amount of red meat he is eating. Goal Pt desires to increase endurance and [...] is walking over 1 mile at home. Goal Target Date Date Met Progress Towards Goal Goal Target Date Date Met Progress Towards Goal Referrals Recommended Referrals recommended: Comments: Pain Assessment Patient Currently in Pain: No Pain Location: Pain Rating: Pain Description: Pain Description Comment: Additional Pain Locations?: Pain Location 2: Pain Rating 2: Pain Location 3: Pain Rating 3: Pain Comments: RISK FACTORS Hypertension Hypertension: No Currently taking antihypertensives? Yes Target outcome goal: BP< 140/90 or <130/80 if DM or CCK Outcome Achieved Hypertension comments: Tobacco Tobacco: Recent [...] 06/03.03/13/15 No change. PT remains smoke free. Stress / Psychosocial Reassessment Psycho-social Assessment: Initial Patient admits to stress: Yes Current level of stress: Moderate Coping skills: Patient Health Questionnaire-9 (PHQ-9) for Depression: 5-9 Minimal symptoms 10-14 Minor depression 15-19 Major depression, moderately severe > 20 Major depression, severe Completed PHQ-9 Score: 8 [facility] Function and Health Status Survey: A [...] goal: Assessment for depression using PhQ-9 and [facility] COOP questionnaires. Maximize coping skills and develop positive [...] a lawsuit with his employer and contemplating shelter. He does not have any coping mechanisms [...] these circumstances will help to reduce stress. Nutrition Reassessment Dietary assessment: Initial Assessment Rate Your Plate - Heart Survey: Scores range from 24 to 72. The higher the score the healthier the eating choices. 52 Overweight / Obesity: Yes Age: 64 Weight: 87.544 kg (193 lb) Height: 175.3 cm (5' 9.02) BMI (Calculated): 28.55 Goal weight: 82.645 kg (182 lb 3.2 [...] See goals. 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 He is currently on light duty becauseof his shoulders, but he still walks 2-3 miles at work each night. He sometimes walks at home outside for exercise, but this is not always regular. 02/24/15. PT has started walking for exercise every other day for 20 minutes. INDIVIDUALIZED TREATMENT PLAN Monitored sessions scheduled: 18 Monitored sessions Attended: 8 Exercise Reassessment Met Level Achieved: 4.6 Resting HR: 80 bpm Exercise HR: 102 bpm Post Exercise HR: 75 bpm Resting BP: 98/68 mmHg Exercise BP: 130/68 mmHg Post Exercise BP: 104/64 mmHg Pre SpO2: While Exercising SpO2: Post SpO2: Pre BG (if applicable): Post BG (if applicable): RPE: 4 ECG Rhythm: Normal sinus rhythm Ectopy: None Symptoms at home: Denies symptoms Symptoms in rehab: Denies symptoms Limitations: Pt has 5# limitation for both shoulders (h/o rotator cuff tears/repairs, will need eventual shoulder replacement) Exercise Prescription Type: Aerobic exercise, Flexibility training Mode: Treadmill, NuStep Frequency: 3 days week Duration/Time: 15-30 min Age: 64 THR (85% [...] on filedocumented in this encounter Care Teams Assistant Program Director Relationship Specialty Start Date End Date Joss Winchester MD PCP - General Internal Medicine 02/14/15 [facility] [place] [address] documented as of this encounter
--- OUTSIDE RECORDS SUMMARY | 2022-06-26 08:10 | XMS_ITS | Encounter Summary ---
:1950 Author Organization [place] Address [address] [place] [address] Care Team Providers Name Role Phone Joss Winchester MD Primary Care Provider Reason for Visit Rehab Therapy Cardiac Therapy (Routine) - Closed Specialty Diagnoses / Procedures Referred By Contact Refer red To Contact Cardiac Rehab / Diagnoses #3 no show on 03/29. lm to remind of next appt and attendance policy. ST elevation myocardial infarction (STEMI), unspecified artery [facility] CARDIAC REHAB Procedures TREATMENT [address] [place] [address] [address] [place] [address] Phone: Fax: Referral ID Status Reason Start Date Expiration Date Visits V isits Requested Authorized [facility]- Closed 03/25/2015 08/24/2015 36 36 ([id number]) Encounter Details Date Type Department Care Team Description 04/03/2015 Hospital Encounter [facility] Mykel-Deana Kamara APRN CNP NO INFO AVAILABLE 06/13/2022 Cardiac and Pulmonary 1, Rh Card[facility] Re[facility] Rehabilitation [place] [id number] [place] [address] [address] [place] [address] Social History Tobacco Use Types [...] on filedocumented in this encounter Care Teams Typing Office Worker Relationship Specialty Start Date End Date Joss Winchester MD PCP - General Internal Medicine 02/14/15 [facility] [place] [address] documented as of this encounter
--- OUTSIDE RECORDS SUMMARY | 2022-06-26 08:10 | XMS_ITS | Encounter Summary ---
:1950 Author Organization [place] Address [address] [place] [address] Care Team Providers Name Role Phone Joss Winchester MD Primary Care Provider Reason for Visit Reason Onset Date Comments Results 04/17/2015 Echo 04-07-15 Encounter Details Date Type Department Care Team Description 04/17/[address] [facility] Heart Sangeetha Paz R esults (Echo 04-07-15) [place] [address] [facility] [address] [place] [address] Social History Tobacco Use Types Packs/Day Years Used Date Smoking Tobacco: Former Cigarettes 1 Quit : 02/07/2015 Alcohol Use Standard Drinks/Week Comments No 0 (1 standard drink = 0.6 oz pure alcoho l) Sex Assigned at Date Recorded Not on file documented as of this encounter Miscellaneous Notes Telephone Encounter - Sangeetha Paz RN - 04/19/2015 2:26 PM CDT Call placed to pt. Reviewed leigh and Crystal's recommendations with pt. Pt had no questions. Pt to follow up as planned. TGalalo REID 2:27 PM Telephone Encounter - Crystal Houston APRN CNP - 04/17/2015 4:49 PM CDT Still with diminished LVEF 45%. F/u as planned with Dr. Reza in 3 wks. Continue current medical management Pls call to review with pt AFSHAN Freeman Telephone Encounter - Sangeetha Paz RN - 04/17/2015 3:51 PM CDT Pt was recently seen by Crystal Houston NP on 03-08-15. Pt has ischemic cardiomyopathy. Left ventricular ejection fraction around 45% at the time of his myocardial infarction. Echo was ordered to reassess. Echo from 04-07-15 reviewed. There is severe inferolateral wall hypokinesis. There is moderate lateral wall hypokinesis. There is moderate septal hypokinesis. The left ventricle is normal in size. The visual ejection fraction is estimated at 40-45%. Cath done on 02-07-15, EF was 45% Echo done on 02-08-15, EF was 55-60% Cath done on 02-28-15, no EF Messaged Crystal Houston NP to review. Pt has an appt with Dr. Reza on 05-11-15. Jon REID 3:59 PM documented in this encounter Plan of Treatment Not on filedocumented as of this encounter Visit Diagnoses Not on filedocumented in this encounter Care Teams Filter Tip Catcher Relationship Specialty Start Date End Date Joss Winchester MD PCP - General Internal Medicine 02/14/15 [facility] [place] [address] documented as of this encounter
--- OUTSIDE RECORDS SUMMARY | 2022-06-26 08:10 | XMS_ITS | Encounter Summary ---
:1950 Author Organization [place] Address [address] [place] [address] Care Team Providers Name Role Phone Joss Winchester MD Primary Care Provider Reason for Visit Reason Comments Heart Problem Hx CAD (STEMI), Hyperlipidem ia, Chronic Smoker, Mild CM (resolved), and Metabolic Syndrome Encounter Details Date Type Department Care Team Description 03/08/2015 Office Visit [facility] Crystal Houston, CAD (cor [place] [facility] FISH PACKER LEVEL VIAL CURVATURE GAUGER disease) (Primary Dx) [address] [place] [address] [place], [place] [phone] [address] (Work) [phone] Social History Tobacco Use Types Packs/Day Years Used Date Smoking Tobacco: Former Cigarettes 1 Quit : 02/07/2015 Alcohol Use Standard Drinks/Week Comments No 0 (1 standard drink = 0.6 oz pure alcoho l) Sex Assigned at Date Recorded Not on file documented as of this encounter Last Filed Vital Signs Vital Sign Reading Time Taken Comments Blood Pressure 102/74 03/08/2015 2:30 PM CDT Pulse 78 03/08/2015 2:30 PM CDT Temperature - - Respiratory Rate - - Oxygen Saturation - - Inhaled Oxygen Concentration - - Weight 87.1 kg (192 lb) 03/08/2015 2:30 PM CDT Height 175.3 cm (5' 9) 03/08/2015 2:30 PM CDT Body Mass Index 28.35 03/08/2015 2:30 PM CDT documented in this encounter Progress Notes Crystal HoustonTED LEVEL VIAL CURVATURE GAUGER - 03/08/2015 3:07 PM CDT HISTORY OF PRESENT ILLNESS: This is a delightful 64-year-old male who presents to [facility] today for a followup visit. He is a patient of Dr. Reza seen in our clinic for past medical history of: Coronary artery disease, hyperlipidemia, cardiomyopathy, tobacco abuse. Naldo suffered an inferior wall ST elevated myocardial infarction in January of this year. He underwent urgent stenting to an occluded circumflex vessel at that time. He was noted to have significant mid-LAD and right coronary artery disease. He was set up to undergo a staged procedure performed on 02/28/[address] Cole. He underwent a 2.25 x 16 mm drug-eluting stent to the mid subtotal LAD and a 3.0 x 38 mm drug-eluting stent to a 90% mid right coronary artery disease. This reestablished good flow. There were no procedural or postprocedural complications. Due to LDL level of 112 with mixed hyperlipidemia, he was started on atorvastatin. At the time of his myocardial infarction, his left ventricular ejection fraction was estimated around 45%. He has not exhibited any signs and symptoms of heart failure on followup. He returns today for reassessment. Naldo tells me he is doing well. He has not had any chest pain or shortness breath with activity or atrest. He denies palpitations, lightheadedness, dizziness or near syncope. Unfortunately, he does suffer from migraines usually occurring about 7 times a month, and he does have a mild headache at this time. He has no orthopnea or paroxysmal nocturnal dyspnea or peripheral edema. He did undergo a lipid panel and BMP today. This shows sodium 136, potassium 4.4, BUN of 12, creatinine 0.89. Total cholesterol was 64, triglyceride level 203, HDL level 36, LDL level of 87. PHYSICAL EXAMINATION: His blood pressure is 102/74, heart rate is 78 beats per minute and is regular. His lungs are clear. There is no peripheral edema. He does have a soft small hematoma noted around the right femoral puncture site. No bleeding or bruit noted. IMPRESSION AND PLAN: 1. Coronary artery disease. History of inferior ST elevated myocardial infarction and subsequent stenting to occluded circumflex vessel 02/07/2015. Last week, he underwent staged stenting to a significant mid-LAD and mid right coronary artery, reestablishing good flow. He is free from any anginal symptoms. He remains on aspirin, Brilinta, carvedilol and CAMMIE inhibitor therapy. He is planning on restarting cardiac rehab next week. 2. Cardiomyopathy. Ischemic. Left ventricular ejection fraction around 45% at the time of his myocardial infarction. There are no signs and symptoms of heart failure. We will set him up for echocardiogram next month for reassessment. 3. Mixed hyperlipidemia. Recently atorvastatin has been started. His triglyceride level and HDL level have improved. His LDL level is down now to 87. We will continue currently on the atorvastatin dose, as it has only been a little over a month and he is working on lifestyle changes. 4. Tobacco abuse. Successfully Naldo quit in January. I encouraged continued cessation. 5. Evidence of incidental liver cyst on a CT scan during hospitalization. Followup planned through his primary medical doctor. Thank you for allowing me to participate in this patient's care. He is planning on seeing Dr. Shannon about 6 weeks. He is to notify our clinic with chest pain, shortness breath or other concerns that he may have during the interim. CRYSTAL HOUSTON APRN, LINA MT: JOAQUIM Name: NEPTALI SULLIVAN Account: [id number] : 1950 Service Date: 03/08/2015 Document: [id number] Crystal Houston APRN CNP - 03/08/2015 3:00 PM CDT HPI and Plan: #[id number] See dictation Orders Placed This Encounter Procedures ??? Echocardiogram No orders of the defined types were placed in this encounter. There are no discontinued medications. Encounter Diagnosis Name Primary? CAD (coronary artery disease) Yes CURRENT MEDICATIONS: Current Outpatient Prescriptions Medication [...] Date ??? Orthopedic surgery ??? Cardiac surgery ??? Angiogram 02-07-15 Aspiration thrombectomy and stenting to his occluded mid circumflex ??? 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 Successful stenting of a midRCA with narrowings up to 90% down to 0; however, there is diffuse 40-50% disease throughout the right coronary artery. FAMILY HISTORY: No family history on file. [...] of breath after sitting then getting up - has improved Cardiovascular: Negative Gastroenterology: Negative Genitourinary: Negative Musculoskeletal: Positive for joint pain;joint stiffness fingers Neurologic: Positive for migraine headaches has had one since Friday03/06/15 Psychiatric: Positive for excessive stress Heme/Lymph/Imm: Negative Endocrine: Negative Physical Exam: Vitals: BP 102/74 mmHg Pulse 78 Ht 1.753 m (5' 9) Wt 87.091 kg (192 lb) BMI 28.34 kg/m2 Constitutional: cooperative;alert and oriented Skin: warm [...] small hematomaaround site Extremities and Back: no edema right radial pulse palpable without audible bruit Neurological: no gross motor deficits;affect appropriate, oriented to time, person and place CC Crystal Houston APRN CNP [facility] [address] [place] [address] documented in this encounter Plan of Treatment Not on filedocumented as of this encounter Visit Diagnoses Diagnosis CAD (coronary artery disease) - Primary Coronary atherosclerosis of unspecified type of vessel, [place] or graft documented in this encounter Care Teams Computer Service Technician Relationship Specialty Start Date End Date Joss Winchester MD PCP - General Internal Medicine 02/14/15 [facility] [address] [place] [address] documented as of this encounter
--- OUTSIDE RECORDS SUMMARY | 2022-06-26 08:10 | XMS_ITS | Encounter Summary ---
:1950 Author Organization [place] Address [address] [place] [address] Care Team Providers Name Role Phone Joss [facility] TREATMENT [address] [place] [address] [address] [place] [address] Phone: Fax: Referral ID Status Reason Start Date Expiration Date Visits V isits Requested Authorized [facility]- Closed 03/25/2015 08/24/2015 36 36 ([id number]) Encounter Details Date Type Department Care Team Description 03/27/2015 Hospital Encounter [facility] Mykel-Deana Kamara APRN CNP NO INFO AVAILABLE 06/13/2022 Cardiac and Pulmonary 1, [facility] Card[facility] [place] [id number] [place] [address] [address] [place] [address] Social History Tobacco Use Types [...] on filedocumented in this encounter Care Teams Weft Straightener Relationship Specialty Start Date End Date Joss Winchester MD PCP - General Internal Medicine 02/14/15 [facility] [place] [address] documented as of this encounter
--- OUTSIDE RECORDS SUMMARY | 2022-06-26 08:11 | XMS_ITS | Encounter Summary ---
:1950 Author Organization [facility] Address [address] [place] [address] Care Team Providers Name Role Phone Joss Winchester MD Primary Care Provider Reason for Visit Rehab Therapy Cardiac Therapy (Routine) - Closed Specialty Diagnoses / Procedures Referred By Contact Refer red To Contact Cardiac Rehab / Diagnoses ST elevation myocardial infarction (STEMI), unspecified artery [facility] CARDIAC REHAB Procedures EVALUATION [address] [place] [address] [address] [place] [address] Phone: Fax: Referral ID Status Reason Start Date Expiration Date Visits V isits Requested Authorized [facility] Closed 02/14/2015 02/21/2015 365 365 ([id number]) Encounter Details Date Type Department Care Team Description 02/17/2015 Hospital Encounter [facility] Deana Meneses APRN CNP NO INFO AVAILABLE 06/13/2022 Cardiac and Pulmonary 1, Cardiac Rehab Rehabilitation [address] [place] [address] Social History Tobacco Use Types [...] on filedocumented in this encounter Care Teams Hide Inspector Relationship Specialty Start Date End Date Joss Winchester MD PCP - General Internal Medicine 02/14/15 [facility] [place] [place] [address] documented as of this encounter
--- OUTSIDE RECORDS SUMMARY | 2022-06-26 08:11 | XMS_ITS | Encounter Summary ---
:1950 Author Organization [facility] Address [address] [place] [id number] Care Team Providers Name Role Phone She, Tesha Nerissa Primary Care Provider Reason for Referral - Closed Specialty Diagnoses / Procedures Referred By Contact Refer red To Contact Diagnoses ST elevation myocardial infarction (STEMI), unspecified artery (H) Deana Reeves APRN CNP NO INFO AVAILABLE 06/13/2022 Referral ID Status Reason Start Date Expiration Date Visits Requ ested Visits Authorized [id number] Closed 03/28/2015 09/24/2015 1 1 ehab Therapy Cardiac Therapy Specialty Diagnoses / Procedures Referred By Contact Refer red To Contact Deana Block APRN CNP NO INFO AVAILABLE 06/13/2022 Referral ID Status Reason Start Date Expiration Date Visits Requ ested Visits Authorized - Closed Specialty Diagnoses / Procedures Referred By Contact Refer red To Contact Diagnoses ST elevation myocardial infarction (STEMI), unspecified artery (H) Deana Reeves APRN CNP NO INFO AVAILABLE 06/13/2022 Referral ID Status Reason Start Date Expiration Date Visits Requ ested Visits Authorized [id number] Closed 02/27/2015 08/26/2015 1 1 Reason for Visit Reason Comments Chest Pain Auth/Cert - Closed Specialty Diagnoses / Procedures Referred By Contact Refer red To Contact Intensive Care Diagnoses ST elevation myocardial infarction (STEMI), unspecified artery (H) [facility] [address] [place] [address] Phone: Fax: Referral ID Status Reason Start Date Expiration Date Visits Requ ested Visits Authorized [id number] Closed 02/08/2015 08/07/2015 1 1 Encounter Details Date Type Department Care Team Description 02/07/2015 - [facility] Riley King MD [facility] [address] [place] [address] ST elevation 02/09/2015 Encounter [facility] ErdMel iraheta MD [address] [place] [address] myocardial Surgical infarction [address] (STEMI[address] unspecified artery [place], [place] (H) [address] Social History Tobacco Use Types Packs/Day Years Used Date Smoking Tobacco: Never Assessed Sex Assigned at Date Recorded Not on file documented as of this encounter Last Filed Vital Signs Vital Sign Reading Time Taken Comments Blood Pressure 128/69 02/09/2015 7:16 AM CDT Pulse 64 02/07/2015 2:17 PM CDT Temperature 35.3 ??C (95.6 ??F) 02/09/2015 7:16 AM CDT Respiratory Rate 16 02/09/2015 7:16 AM CDT Oxygen Saturation 96% 02/09/2015 7:16 AM CDT Inhaled Oxygen Concentration - - Weight 88.8 kg (195 lb 12.3 oz) 02/07/2015 4:20 PM CDT Height 175.3 cm (5' 9) 02/07/2015 2:17 PM CDT Body Mass Index 28.91 02/07/2015 2:17 PM CDT documented in this encounter Discharge Summaries Deana Block - 02/09/2015 9:56 AM CDT DISCHARGE DIAGNOSES: 1. HE-htufqnh-hprwpvupr myocardial infarction due to occluded obtuse marginal circumflex. Peak troponin of 8.3. 2. Urgent coronary angiogram via the right radial artery with placement of a 3.5 x 16 mm Promus Premier drug-eluting stent into the distal circumflex with aspiration thrombectomy; previous proximal circumflex stent was patent The right coronary artery and LAD both have significant lesions that will require staged intervention. 3. Mild cardiomyopathy, ejection fraction of 45% by LV-gram, 55-60% by echo, with moderate lateral wall hypokinesis. 4. Incidental finding of a liver cyst 1.5 x 2.6 cm. 5. Bradycardia, on metoprolol -- switched to carvedilol. 6. Smoking history, cessation completed. He opts for no smoking aids. 7. Dyslipidemia. Atorvastatin increased to 40 mg a day. 8. Migraine headaches. 9. Previous history of leg cramps on statin; unclear which drug. 10. Metabolic syndrome. SUMMARY OF HOSPITAL COURSE: Shellie Bender is a 64-year-old gentleman who had a circumflex stent placed at [facility] in 1998. He followed up with Cardiology for about 1 year after that then stopped. He presented to [facility] recently with acute onset of chest pressure with diaphoresis and weakness while driving his car. He came to the Emergency Room at [facility], where he had EKG findings consistent with a ST-segment elevation myocardial infarction with ST elevation of 2-4 mm in leads II, III, aVF and V5 and V6. There is T-wave inversion and ST depression in aVL. He was given Brilinta andaspirin and started on a nitro drip. He was taken urgently to the Cardiac [facility] as his pain was ongoing and he was diaphoretic. Findings and procedures are noted above. This was done through the right radial artery which has healed nicely, with no hum or bruit. There are full pulses present. The patient participated in cardiac rehabilitation post-intervention, had no recurrent chest discomfort. He was noted to have sinus bradycardia into the 40s. Due to this, his metoprolol was changed to low-dose carvedilol. His heart rate improved to 55-61 and blood pressures improved. He remains on lisinopril at low dose as well. He has normal renal function. He had an EF of 45% on LV-gram. Repeat echo was done showing rebound of 55-60% with ongoing wall motion abnormalities as described above. He was a smoker on admission. He states that he quit for 20 years following his heart attack but started up because of multiple social stressors including divorce and other issues. He is currently on light duty at work due to some shoulder surgeries and repeat tears. He has this reassessed early February and sees a physician for that issue on 03/07. OTHER LABORATORY DATA: Shows a sodium of 139, potassium 4.0, BUN 9, creatinine 0.76, Post-angiography. He has impaired fasting glucose, 101-126. Calcium was slightly low at 7.7 post-intervention, was normal on admission. Total cholesterol was 201, ratio 8.4, HDL of 24, LDL 112, and triglycerides 325. He had a pro-terminal BNP which was normal at 485. Hemoglobin on admission was 17.5, down to 13.2 post-procedure. MCV is normal. There is no documented history of alcohol use/abuse. On the morning of admission, he was ambulatory, feeling well, with no recurrent chest pain. Vital signs were stable. He has an S4 gallop noted. His right radial site is clean and intact with no hum or bruit. He has no edema. There are full pedal pulses present. I reviewed in detail the need for him to continue Brilinta for at least 1 year from his last intervention, also to not take more than 81 mg of aspirin. His other meds were reviewed in detail. I told him not to drive for at least 2 more days. I would recommend 1 week off work, but he is on light duty anyway, based on his shoulder issues as noted above. Other instructions have been reviewed including smoking cessation. He has no interest in smoking aids, and he wishes to quit cold turkey on his own. This will be monitored as an outpatient. DISCHARGE DISPOSITION: This patient will be discharged to home in the care of himself and his family. FOLLOWUP: He is scheduled to see my colleague, Crystal Houston ,on 02/27 with a BMP, preprocedure heart catheterization labs at our [place] location. He is also tentatively scheduled for a staged intervention, likely to the right coronary with Dr. Cole on 02/28. The LAD will also need to be done either at that setting or later, pending the auger press operator's choice. He will see Dr. Mel Reza in 2 months. he should see his primary care physician in 1-2 weeks to follow up on the liver cyst that was found incidentally. Outpatient cardiac rehab is suggested as well as weight loss given evidence of metabolic syndrome. DISCHARGE MEDICATIONS: 1. Aspirin 81 mg a day. 2. Nitrostat 0.4 mg as directed. 3. Lipitor 40 mg a day. 4. Lisinopril 5 mg daily. 5. Carvedilol 3.125 mg twice daily. 6. Brilinta 90 mg twice daily, for a minimum of 1 year from whenever his last stent occurs. 7. Amitriptyline 25 mg a day at bedtime. It has been a pleasure being involved in this gentleman's care. MEL REZA MD, [facility] As dictated by DEANA BLOCK APRN, LINA MT: MANN#[id number] Name: SHELLIE NICOLE Account: [id number] : 1950 Admit Date: [id number] Discharge Date: 02/09/2015 Document: [id number] cc: Deana Block APRN, CNP Associated attestation - Mel Reza MD - 02/09/2015 4:01 PM CDT Physician Attestation IZOE JAMES W, personally saw and evaluated Shellie Nicole as part of a shared visit. I have reviewed and discussed with the advanced practice provider their discharge plan. My chew history or physical exam findings from the day of discharge: asymptomatic with a stable exam also. Chew management decisions made by me:Discussed his CAD, planned staged Interventions, medications, nosmoking and symptoms to return to the hospital as needed. Follow up defined. MEL REZA Date of Service (when I saw the patient): 02/09/2015 documented in this encounter Discharge Instructions AttachmentsThe following attachments cannot be sent through Care Everywhere. CARVEDILOL ORAL TABLET (ITALIAN)LISINOPRIL (ITALIAN)ASPIRIN CHEWABLE TABLET (ITALIAN)TICAGRELOR (ITALIAN)ATORVASTATIN (ITALIAN)HEART ATTACK, SYMPTOMS OF A (ITALIAN)HEART ATTACK, DISCHARGE INSTRUCTIONS FOR (ITALIAN)documented in this encounter Medications at Time of [...] documented as of this encounter Progress Notes Radha Eduardo RN - 02/09/2015 1:15 PM CDT Pt discharged to home with sister as transport. Discharge instructions reviewed with pt including education on new medications and post angio with wrist approach. DC meds filled by pharmacy and withpt upon discharge. PIV out, tele off. Deana Block - 02/09/2015 8:42 AM CDT Cardiology Progress Note Assessment and Plan: Admit (02/07) with abrupt onset of resting CP to left arm with assoc diaphoresis/weakness STEMI: Known CAD with previous circumflex stenting at [facility] in 1998 (followed with cards for about one year) -troponin peak 8/inflat STEMI/inflat hypokinesia -previous hx of stenting (99) At [facility] -s/p urgent aspiration thrombectomy and 3.5x16mm RIZWAN to occluded mid CFX. Remaining significant subtotal mid LAD and 80% mid RCA dx---> plan for staged PCI in future. I'lldiscuss with Dr Cole today. -No further CP/hemodynamically stable -bblocker/CAMMIE-I/ASA/Brilinta for 1 yr-reviewed as well as not taking more than 81mg ASA daily with Brilinta -cardiac rehab today CM: -ischemic -LVEF 45% with inferior RWMA by LV gram; up to 55-60% by echo Pro term BNP normal; no CHF this admission -no significant -weight stable - changed Metoprolol to Carvedilol cautiously due to asymptomatic bradycardia- heart rate improved to50's instead of 40-50. HTN: -borderline DBP-improved on Carvedilol/Lisinopril Tobacco abuse: -encouraged cessation. He quit for 20+ years post last stent and started again due to mulitple social stressors Does not want smoking cessation aides Hyperlipidemia: -will increase Atorvastatin to 40mg -assess lipid status--LDL 112; TG 325; ;HDL 24 Hx of cramping on some statin in past-he is not sure which one. Impaired fasting glucose/metabolic syndrome Weight loss, exercise, limited alcohol Incidental liver cyst-follow up at pmd PLAN: Home today after am cardiac rehab Instructions reviewed Wants rx's filled here for now He is scheduled in 2 weeks with us for follow up and to set up staged PCI He prefers radial approach if possible Off work one week from our perspective Is still on light duty due to some shoulder surgery issues D/c summary completed. #[id number] Interval History: Denies any CP/SOB/palpitations;tolerating cardiac rehab well. Medications: ??? carvedilol 3.125 mg Oral BID w/meals ??? sodium chloride (PF) 10 mL Intravenous Once ??? pneumococcal vaccine 0.5 mL Intramuscular Prior to discharge ??? sodium chloride (PF) 3 mL Intracatheter Q8H ??? aspirin EC 81 mg Oral Daily ??? lisinopril 5 mg Oral Daily ??? atorvastatin 40 mg Oral QPM ??? ticagrelor 90 mg Oral Q12H Physical Exam: Blood pressure 128/69, pulse 64, temperature 95.6 ??F (35.3 ??C), temperature source Oral, resp. rate 16, height 1.753 m (5' 9), weight 88.8 kg (195 lb 12.3 oz), SpO2 96 %. Wt Readings from Last 3 Encounters: 02/07/15 88.8 kg (195 lb 12.3 oz) I/O last 3 completed shifts: In: 240 [P.O.:240] Out: 200 [Urine:200] CONST: Alert and oriented x3 LUNGS: CTA bilaterally CARDIO: RRR, S1, S2 S4 No murmurs noted ABD: Soft +BS EXT: No edema 2+DP bilaterally Right radial pulse palpable without bruit/hematoma/bleeding Data: TELE: SR/SB CBC Recent Labs Lab 02/08/15 0515 02/07/15 1423 WBC 7.3 7.7 HGB 13.2* 17.5 PLT 204 309 BMP Recent Labs Lab 02/08/15 0515 02/07/15 1423 NA 139 141 POTASSIUM 4.0 3.9 CHLORIDE 108 104 LUCRECIA 7.7* 9.1 CO2 21 28 BUN 9 13 CR 0.76 0.93 GLC 101* 126* No results for input(s): CHOL, HDL, LDL, TRIG, CHOLHDLRATIO in the last 89441 hours. TROP Lab Results Component Value Date TROPI 4.991* 02/08/2015 TROPI 8.347* 02/07/2015 TROPI 1.546* 02/07/2015 TROPONIN 0.00 02/07/2015 BNP Recent Labs Lab 02/08/15 0515 NTBNPI 485 Associated attestation - Mel Reza MD - 02/09/2015 2:06 PM CDT Physician Attestation IZOE JAMES W, saw and evaluated Shellie Nicole as part of a shared visit. I have reviewed and discussed with the advanced practice provider their history, physical and plan. I personally reviewed the vital signs, medications, labs and imaging. My chew history or physical exam findings: exam is stable with no NVD, RSR and clear lungs. Chew management decisions made by me: DC, arrange follow up visits, medications, cath with planned staged P/S of RCA and LAD likely MEL REZA Date of Service (when I saw the patient): 02/09/2015 Ольга Yeboah OT - 02/08/2015 10:25 AM CDT 02/08/15 1021 General Information Patient is receptive to smoking cessation at this time Yes Packs Per Day 1 PPD Stage of Behavior Change Patient's Stage of Behavior Change Preparation I will quit (within the next 30 days Processes of Change The following interventions were used (smoking cessation) Increase awareness of effects of smoking on health;Accept responsibility for effects of smoking;Develop strategies to increase confidence to quit;Initiate pro/con list of reasons to quit;Problem-solve barriers to quitting;Develop action plan;Jomar ntify healthy alternatives;Recognize rewards of value to him/her Motivation to Quit Scale (1-10) 10 Confidence to Quit Scale (1-10) 10 Education/Recommendations Education QUIT PLAN phone line Total Evaluation Time Total Evaluation Time (Minutes) 8 Ольга Yeboah OT - 02/08/2015 9:59 AM CDT 02/08/15 0934 Quick Adds Type of Visit Initial Occupational Therapy Evaluation Living Environment (R) Lives With alone Living Arrangements house Home Accessibility stairs within home;bed and bath are not on the first floor Number of Stairs Within Home 10 Transportation Available car;family or friend will provide Living Environment Comment Pt reported to be independent in mobility without AD at baseline. Self-Care Dominant Hand right Usual Activity Tolerance good Current Activity Tolerance fair Regular Exercise no Equipment Used at Home none Activity/Exercise/Self-Care Comment Pt reported to be independent in ADLs/IADLs. 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 (R) Functional Level Prior (R) Ambulation 0-->independent (R) Transferring 0-->independent (R) Toileting 0-->independent (R) Bathing 0-->independent (R) Dressing 0-->independent (R) Eating 0-->independent (R) Communication 0-->understands/communicates without difficulty (R) Swallowing 0-->swallows foods and liquids without difficulty (R) Cognition 0 - no cognition issues reported (R) Fall history within last six months no (R) Which of the above functional risks had a recent onset or change? 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 Dominique Ayala Patient/Family Goals Statement Return to home. Pertinent History of Current Problem Pt admitted with acute STEMI s/p stent. PMH: chronic smoker. Precautions/Limitations no known precautions/limitations Cognitive Status Examination Orientation orientation to person, place and time Level of Consciousness alert Follows Commands and Answers Questions 100% of the time Personal Safety and Judgment intact Memory intact Attention No deficits were identified Organization/Problem Solving No deficits were identified Executive Function No deficits were identified Visual Perception Visual Perception Wears glasses Sensory Examination Sensory Quick Adds No deficits were identified Pain Assessment Patient Currently in Pain No Integumentary/Edema Integumentary/Edema no deficits were identifed Posture Posture not impaired Range of Motion (ROM) ROM Quick Adds Other (describe) ROM Comment B UE AROM WFL with exception of limited shoulder ROM secondary to history of recent surgeries. Hand Strength Hand Strength Comments WFL Muscle Tone Assessment Muscle Tone Quick Adds No deficits were identified Coordination Upper Extremity Coordination No deficits were identified Transfer Skill: Bed to Chair/Chair to Bed Level of Holly: Bed to Chair stand-by assist Transfer Skill: Sit to Stand Level of Holly: Sit/Stand stand-by assist Upper Body Dressing Level of Holly: Dress Upper Body independent Physical Assist/Nonphysical Assist: Dress Upper Body set-up required Lower Body Dressing Level of Holly: Dress Lower Body independent Physical Assist/Nonphysical Assist: Dress Lower Body set-up required Grooming Level of Holly: Grooming independent Physical Assist/Nonphysical Assist: Grooming set-up required Eating/Self Feeding Level of Holly: Eating independent Physical Assist/Nonphysical Assist: Eating set-up required Instrumental Activities of Daily Living (IADL) Previous Responsibilities meal prep;housekeeping;laundry;shopping;yardwork;medication management;kevon nces;driving;work Activities of Daily Living Analysis Impairments Contributing to Impaired Activities of Daily Living ROM decreased;strength decreased (endurnace decreased) General Therapy Interventions Planned Therapy Interventions ADL retraining;risk factor education;progressive activity/exercise Clinical Impression Criteria for Skilled Therapeutic Interventions Met yes, treatment indicated OT Diagnosis decreased ADL performance Rehab Potential good, to achieve stated therapy goals Rehab potential affected by weakness Therapy Frequency other (see comments) Predicted Duration of Therapy Intervention (days/wks) eval and 1 treat Anticipated Discharge Disposition Home with Outpatient Therapy Risks and Benefits of Treatment have been explained. Yes Patient, Family & other staff in agreement with plan of care Yes Total Evaluation Time Total Evaluation Time (Minutes) 8 Mel Reza MD - 02/08/2015 7:45 AM CDT Cardiology Progress Note Assessment and Plan: Admit (02/07) with abrupt onset of resting CP to left arm with assoc diaphoresis/weakness STEMI: -troponin peak 8/inflat STEMI/inflat hypokinesia -previous hx of stenting (99) At [facility] -s/p urgent aspiration thrombectomy and 3.5x16mm RIZWAN to occluded mid CFX. Remaining significant subtotal mid LAD and 80% mid RCA dx---> plan for staged PCI in future. I'll discuss with Dr Cole today. -No further CP/hemodynamically stable -bblocker/CAMMIE-I/ASA/Brilinta for 1 yr -cardiac rehab today CM: -ischemic -LVEF 45% with inferior RWMA/ will obtain BNP -no significant s&s of CHF -weight pending today -(-200 total OP) -CHF education/daily weights/strict I&Os/low sodium diet -will change Metoprolol to Carvedilol cautiously due to asymptomatic bradycardia HTN: -borderline DBP Tobacco abuse: -encouraged cessation. I stressed no smoking JE Hyperlipidemia: -will increase Atorvastatin to 40mg -assess lipid status Interval History: Denies any CP/SOB/palpitations Medications: ??? sodium chloride (PF) 3 mL Intravenous Q8H ??? midazolam 0.5-1 mg Intravenous Once within 24 hrs ??? fentaNYL 25-50 mcg Intravenous Once within 24 hrs ??? sodium chloride (PF) 3 mL Intracatheter Q8H ??? aspirin EC 81 mg Oral Daily ??? metoprolol 25 mg Oral BID ??? lisinopril 5 mg Oral Daily ??? atorvastatin 40 mg Oral QPM ??? ticagrelor 90 mg Oral Q12H Physical Exam: Blood pressure 125/89, pulse 64, temperature 97.9 ??F (36.6 ??C), temperature source Oral, resp. rate 10, height 1.753 m (5' 9), weight 88.8 kg (195 lb 12.3 oz), SpO2 99 %. Wt Readings from Last 3 Encounters: 02/07/15 88.8 kg (195 lb 12.3 oz) I/O last 3 completed shifts: In: 357.5 [I.V.:282.5; IV Piggyback:75] Out: 380 [Urine:380] CONST: Alert and oriented x3 LUNGS: CTA bilaterally CARDIO: RRR, S1, S2 No murmurs noted ABD: Soft +BS EXT: No edema 2+DP bilaterally Right radial pulse palpable without bruit/hematoma/bleeding Data: TELE: SR/SB CBC Recent Labs Lab 02/08/15 0515 02/07/15 1423 WBC 7.3 7.7 HGB 13.2* 17.5 PLT 204 309 BMP Recent Labs Lab 02/08/15 0515 02/07/15 1423 NA 139 141 POTASSIUM 4.0 3.9 CHLORIDE 108 104 LUCRECIA 7.7* 9.1 CO2 21 28 BUN 9 13 CR 0.76 0.93 GLC 101* 126* No results for input(s): CHOL, HDL, LDL, TRIG, CHOLHDLRATIO in the last 97722 hours. TROP Lab Results Component Value Date TROPI 4.991* 02/08/2015 TROPI 8.347* 02/07/2015 TROPI 1.546* 02/07/2015 TROPONIN 0.00 02/07/2015 BNP No results for input(s): NTBNPI, NTBNP in the last 168 hours. documented in this encounter H&P Notes Mel Reza MD - 02/07/2015 2:46 PM CDT HISTORY OF PRESENT ILLNESS: Mr. Shellie Bender is 64. He has been relatively previously healthy man, although he has been a chronic 1 pack a day smoker. This afternoon around 2:00 p.m. he was driving his automobile when he noted the onset of pressure in the chest with diaphoresis, weakness and drove himself to the [facility] Emergency Room. With his dramatic symptoms an acute EKG was done at 2:16 in the afternoon. EKG showed sinus rhythm at 62 beats a minute with a 2-[address] elevation in leads II, III, aVF and V5 and V6 and T-wave inversion and ST depression in aVL. The patient's diagnosisof an acute ST elevation myocardial infarct was made. The labor and delivery nurse was notified immediately. He was given Brilinta, aspirin and he was started on nitroglycerin drip and sent to the [facility] urgently. The patient had to be taken off the labor and delivery nurse table because of this acute intervention but he left the emergency room at about 2:35 p.m. His pain was still about a 6/10. He was still diaphoretic. PAST MEDICAL HISTORY: 1. Positive for treated hyperlipidemia. 2. Migraine headaches. 3. Chronic smoker. SOCIAL HISTORY: He is , has children in the area. He smokes a pack a day. He is quietly active. REVIEW OF SYSTEMS: Relatively negative for 10-point review otherwise he has not had preceding chest pain. MEDICATIONS: Amitriptyline, simvastatin, aspirin and some other p.r.n. medications. The patient has not had previous strokes. He has not had any bleeding issues. He has not had hypertension or diabetes. LABORATORY: Is not currently available because of computer issues. FAMILY HISTORY: Noncontributory. PHYSICAL EXAMINATION: GENERAL: Mildly uncomfortable male, mildly diaphoretic. VITAL SIGNS: Blood pressure 160/90, heart rate of 68 beats a minute. HEENT: Normal. NECK: Free of neck vein distention or bruits. HEART: Regular, apical S4 is noted. LUNGS: Clear. ABDOMEN: Soft without organomegaly. EXTREMITIES: Showed +1 pedal pulses and no edema. Warm, mildly diaphoretic but well perfused. This gentleman is admitted with acute ST elevation inferior wall GA. He has coronary disease, severity unclear. I impressed upon him the absolute need to stop smoking. He will ultimately be placed on CAMMIE, beta chay, statin, aspirin chronically. Abstinence from cigarettes is mandatory. I did review complications of an acute intervention. Dr. Ramriez who is the interventionalist will probably do the same thing. Prognosis is currently guarded, but I think with revascularization and reperfusion he will feel muchbetter. The patient will need primary care followup. MEL REZA MD, [facility] MT: #[id number] Name: SHELLIE NICOLE MRN: [id number] Account: [id number] : 1950 Admitted: [id number] Document: [id number] cc: Tesha Nowak MD documented in this encounter Procedure Notes Dominique Ayala MD - 02/07/2015 3:25 PM CDT Procedure 1) CAG 2) Aspiration thrombectomy CX 3) PCI mid CX 3.5 x 16 mm everolimus eluting PROMUS PREMIER Stent 4) LHC 5) LV gram Approach RTR Complications none Indication acute IL STEMI Medications 1) In ER Heparin 6,500 U unfractionated heparin, ticagrelor 180 mg, aspirin 325 mg 2) In laborer wrecking and salvaging bivarudin bolus and drip Findings LVEDP = 14 mmhg Angiography LV EF 45 to 50% , normal LV chamber size, mid inferior wall moderate hypokinesis, no MR LMCA No significant narrowing. GERSON 3 flow. LAD proximal no significant stenosis. Mid vessel 40%., then subtotal after large SP3. The mid vesselis 2.25 to at most 2.5 mm diameter. GERSON 3 flow. CX nondominant. Proximal no significant stenosis. Mid vessel 40 to 50% in stent restenosis involvingorigin of large M2. Subtotal distal stenosis before large M3 with filling defect consistent wth thrombus. This is the infarct related vessel. RCA dominant vessel. Long 80% mid vessel lesion. Distal 50% before PDA and PLB. There is GERSON 3 flowin the RCA. We used an EBU 3.75 guide, a 0.14 Run through wire an aspiration catheter retrieving 10 cc atheromatous debris and red thrombus, restoring GERSON 3 flow. We predilated with a 3.5 balloon, placed a 3.5 x 16 3.5 mm everolimus eluting PROMUS PREMIER stent and post dilated ot 16 AUDREY Post intervention Brisk distal GERSON 3 flow with no residual narrowing. Assess: Successful PCI for acute ILSTEMI. He has significant lesions in mid RCA and distal LAD, amenable to PCI in a staged fashion depending upon his clinical course. Recommendations 1) ticagrelor 90 bid 2) asa 81 daily 3) atorvastatin 40 mg daily 5) metoprolol 25 bid 6) Lisinopril 5 mg daily 7a0 staged PCI mid RCA and distal LAD, timing depends upon clinical course Melva documented in this encounter Consult Notes Margot Maurer RD, LD - 02/08/2015 8:15 AM CDTAssociated Order(s): NUTRITION SERVICES ADULT IP CONSULT NUTRITION ASSESSMENT & EDUCATION NOTE REASON FOR ASSESSMENT consult - nutrition education: Inpatient Nutrition Assessment for Therapeutic Lifestyle Changes Diet Nutrition History Pt reports does not follow specific diet at home, nor has he received diet education in the past. Ptstates uses the salt shaker and typically salts his foods before tasting. CURRENT DIET AND NOURISHMENT ORDER Diet: Cardiac Current Intake/Tolerance: Pt reports good meal intake and tolerance since admission Anthropometrics Height 69 Weight 88.8 kg Body mass index is 28.9 kg/(m^2). IBW 72.6 kg %IBW 122% Weight History: no wt changes reported Wt Readings from Last 5 Encounters: 02/07/15 88.8 kg (195 lb 12.3 oz) Dosing Weight 76.6 kg - adjusted LABS Chol 201 (H) HDL 24 (L) TG 325 (H) MEDICATIONS Lipitor, lisinopril, ticagrelor NUTRITION STATUS VALIDATION Patient does not meet two of the following criteria necessary for diagnosing malnutrition: significant weight loss, reduced intake, subcutaneous fat loss, muscle loss or fluid retention Weight Status:Overweight BMI 25-29.9 ASSESSED NUTRITION NEEDS: Estimated Energy Needs: 0521-9059 kcals/day (25-30 kcals/kg) - maint Estimated Protein Needs: 77-92 gms/day (1-1.2 gms/kg) - CAD Estimated Fluid Needs: 1 mL/kcal or per MD goals for fluid balance NUTRITION DIAGNOSIS ??? Food- and nutrition- related knowledge deficit R/t lack of previous cardiac diet education AEB pt self report. INTERVENTIONS Nutrition Prescription Continue Cardiac diet Implementation ??? Nutrition Education (Content): a) Provided handout TLC diet guidelines handout. b) Encouraged whole grains (bread, cereal, pasta, rice), fresh/frozen fruits/vegetables, unsaturatedfats, salt-free seasonings and seasoning foods without salt, lean meats, low-fat dairy, choosing lowsodium foods and reducing sodium to ~600-800 mg Na+ per meal for <2000 mg Na+ daily. Reviewed heart healthy cooking methods, discouraged frying. ??? Nutrition Education (Application): a) Discussed eating habits and recommended alternative food choices ??? Anticipate good compliance ??? Diet Education - refer to Education Flowsheet Goals ??? Patient verbalizes understanding of TLC diet by stating 2 dietary changes to make to current diet regimen to better comply with diet recommendations. ??? Above goal met during education session Follow up/Monitoring ??? Inpatient diet education complete ??? Recommend Out-Patient Cardiac Rehab ??? Will re-evaluate in 7 days, on sooner, if nutrition status changes Mel Reza MD - 02/07/2015 2:34 PM CDT Acute inferoapical STEMI Smoker No other howard issues except migraines He took 2 ASA with his CP that started ~ 2 PM Off to the laborer wrecking and salvaging for rescue stenting of the RCA likely I have reviewed the catheterization procedures including risks and benefits. This could include angiography, angioplasty, stenting, and other coronary interventions as the development team lead deems necessary. Risks were discussed but may not be limited to , heart attack, bleeding, kidney i njury, stroke, urgent coronary bypass surgery and vascular injury. Helen Reza documented in this encounter ED Notes Svetlana Elaine RN - 02/07/2015 2:34 PM CDT Charge nurse attempting to call family. Svetlana Elaine RN - 02/07/2015 2:33 PM CDT I-stat Trop: 0.00 Radha Crowley - 02/07/2015 2:33 PM CDT Hooked Pt. Up to defib pads, Applied monitoring devices (EKG, BP, and pulse ox) onto Patient., potable monitor hooked up to Pt. Riley King MD - 02/07/2015 2:24 PM CDT History Chief Complaint: Chest Pain HPI Shellie Nicole is a 64 year old male with a history of GA and hyperlipidemia who presents for evaluation of chest pain. Approximately 30 minutes ago while driving to work Shellie began to experience chest pain with a severity of 7/10. The pain is noted to radiate into his left arm with associated numbness and tingling. He is diaphoretic but denies any nausea, vomiting, shortness of breath or light-headedness. No other symptoms or concerns are voiced at this time. Of note, the patient did take 650 mg of Aspirin today prior to arrival. Cardiac/PE/DVT Risk Factors: History of hypertension - No History of hyperlipidemia - Yes History of diabetes - No History of smoking - Unknown Personal history of PE/DVT - No Family history of PE/DVT - No Family history of heart complications - No Personal history of heart complications - Yes Recent travel - No Recent surgery - No Other immobilizations - No Cancer - No Allergies: NKDA Medications: Lipitor Amitriptyline Aspirin Simvastatin Percocet Past Medical History: Hyperlipidemia GA Past Surgical History: History reviewed. No pertinent past surgical history. Family History: History reviewed. No pertinent family history. Social History: The patient presented to the ED alone. Marital Status: , no smoking, no alcohol Review of Systems Constitutional: Positive for diaphoresis. Respiratory: Negative for shortness of breath. Cardiovascular: Positive for chest pain (with radiation to left arm with numbness and tingling). Gastrointestinal: Negative for nausea and vomiting. Neurological: Positive for numbness (left arm). Negative for light-headedness. All other systems reviewed and are negative. Physical Exam First Vitals: BP: 156/99 mmHg Pulse: 64 Heart Rate: 64 Temp: 98.7 ??F (37.1 ??C) Resp: 18 Height: 175.3 cm (5' 9) Weight: 89.359 kg (197 lb) SpO2: 100 % Physical Exam Constitutional: Oriented to person, place, and time. In distress due to pain. HENT: Head: Normocephalic. Mouth/Throat: Oropharynx is clear and moist. Eyes: EOM are normal. Pupils are equal, round, and reactive to light. Neck: Neck supple. Cardiovascular: Normal rate, regular rhythm and normal heart sounds. Exam reveals no gallop and no friction rub. No murmur heard. Pulmonary/Chest: Effort normal and breath sounds normal. No respiratory distress. No wheezes. No rales. No reproducible chest wall pain. Abdominal: Soft. No distension. No tenderness. No rebound and no guarding. Musculoskeletal: Normal range of motion. 2+ distal equal pulses. No leg calf tenderness, swelling or edema. Neurological: Alert and oriented to person, place, and time. Moves all 4 extremities spontaneously Skin: No rash noted. No pallor. Emergency Department Course ECG done at 1416. ECG read at 1416. Indication - Chest Pain: Rate 62 bpm. TN interval 148. QRS duration 86. QT/QTc 394/399. P-R-T axes 20 23 84. Normal sinus rhythm. ST elevation, consider inferolateral injury or acute infarct. Acute GA/STEMI. Consider right ventricular involvement in acute inferior infarct. Abnormal ECG. Imaging: Radiographic findings were communicated with the patient who voiced understanding of the findings. Chest XR: IMPRESSION: Negative. Per radiology. Laboratory: CBC: All WNL (WBC 7.7, HGB 17.5, PLT 309) INR: 0.90 CMP: Glucose 126 high, o/w WNL. (Creatinine 0.93) Troponin POCT: 0.00 Interventions: 1428 Brilinta 180 mg PO 1428 Heparin 6,500 units IV 1429 Nitroglycerin 0.07 mcg/kg/min IV Emergency Department Course: Nursing notes and vitals reviewed. 1417: I performed an exam of the patient as documented above. 1422: I spoke with Dr. Mel Reza of the cardiology service who was present in the ED regarding the patient's presentation, findings and plan of care. 1425: The patient underwent a portable chest XR while in the emergency department, results above. 1426: Dr. Mel Reza of the cardiology service is evaluating the patient at bedside. 1427: I reassessed the patient. 1433: The patient was transported to the laborer wrecking and salvaging. Impression & Plan CMS Diagnoses: The patient has a STEMI The patient was evaluated at 1417 Patient was transferred to the laborer wrecking and salvaging which was activated due to ECG changes. ASA given by medics or taken today Medical Decision Making: Shellie Nicole is a 64 year old male, history of stenting, came in complaining of chest pain 30 minutes prior to arrival. Differential includes ACS, PE, pneumothorax, aortic dissection or other causes.He did have the work-up as seen. EKG has concerning findings for inferior wall ST elevation GA. I did immediately page the laborer wrecking and salvaging. Cardiology came down to see the patient and agreed with assessment. Brilinta has been started as well as low-dose Nitro drip as to avoid hypotension. Patient will go on for angiography for further cardiac catheterization and admission. Critical Care time: was 30 minutes for this patient excluding procedures. Disposition: Transfer to cardiac catheterization suite. Diagnosis: 1. (410.90) ST elevation myocardial infarction (STEMI), unspecified artery [facility]ol[facility] am serving as a scribe on 02/07/2015 at 1417 to document services personally performed by Dr. King, based on my observations and the provider's statements to me. [facility] EMERGENCY DEPARTMENT Riley King MD 02/07/15 1704 Samantha Saunders RN - 02/07/2015 2:20 PM CDT Patient presents with chest pain, substernal l in nature, with left arm numbness and tingling. Patient rates his pain a 7 on a 1-10 scale. Patient is pale, diaphoretic. documented in this encounter Miscellaneous Notes Pharmacy - Discharge Medication Reconciliation and Education - [facility] - 02/09/2015 11:00 AM CDT Discharge medication review for this patient is complete. [id number] medication education was provided by the pharmacist. See [facility] for allergy information and immunization status. 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 Patient was informed to STOP taking the following HOME medications: - Aspirin 325mg Patient was informed to START taking the following NEW medications: - Aspirin 81mg, carvedilol, lisinopril, ticagrelor and nitrostat Patient was informed to make the following changes to prior to admission medications: - Aspirin 325mg to 81mg Patient was educated on the following for each discharge medication: Rationale for therapy Duration of treatment Dosing and or monitoring drug levels Common side effects Importance of compliance Drug/food interactions Missed doses Self monitoring parameters Left written materials and instructions (Clinical notes from [facility]) for new medications: No OUTCOMES: Patient verbalized understanding Discharge Medication List Review of your medicines START taking Dose / Directions Comments aspirin 81 MG EC tablet Used for: St Elevation Myocardial Infarction (Stemi), Unspecified Artery Replaces: aspirin 325 MG tablet Dose: 81 mg Take 1 tablet (81 mg) by mouth daily Quantity: 90 tablet Refills: 3 carvedilol 3.125 MG tablet Commonly known as: COREG Used for: St Elevation Myocardial Infarction (Stemi), Unspecified Artery Dose: 3.125 mg Take 1 tablet (3.125 mg) by mouth 2 times daily (with meals) Quantity: 180 tablet Refills: 3 lisinopril 5 MG tablet Commonly known as: PRINIVIL,ZESTRIL Used for: St Elevation Myocardial Infarction (Stemi), Unspecified Artery Dose: 5 mg Take 1 tablet (5 mg) by mouth daily Quantity: 90 tablet Refills: 3 nitroglycerin 0.4 MG SL tablet Commonly known as: NITROSTAT Used for: St Elevation Myocardial Infarction (Stemi), Unspecified Artery Dose: 0.[address] 1 tablet (0.4 mg) under the tongue every 5 minutes as needed for chest pain Quantity: 25 tablet Refills: 2 ticagrelor 90 MG tablet Commonly known as: BRILINTA Used for: St Elevation Myocardial Infarction (Stemi), Unspecified Artery Dose: 90 mg Take 1 tablet (90 mg) by mouth every 12 hours Quantity: 60 tablet Refills: 11 CONTINUE these medicines which may have CHANGED, or have new prescriptions. If we are uncertain of the size of tablets/capsules you have at home, strength may be listed as something that might have changed. Dose / Directions Comments atorvastatin 40 MG tablet Commonly known as: LIPITOR This may have changed: - medication strength - how much to take - when to take this Used for: St Elevation Myocardial Infarction (Stemi), Unspecified Artery Dose: 40 mg Take 1 tablet (40 mg) by mouth every evening Quantity: 90 tablet Refills: 3 CONTINUE these medicines which have NOT CHANGED Dose / Directions Comments AMITRIPTYLINE HCL PO Dose: 25 mg Take 25 mg by mouth At Bedtime Refills: 0 STOP taking aspirin 325 MG tablet Replaced by: aspirin 81 MG EC tablet Plan of Care - Na Moore RN - 02/09/2015 6:59 AM CDT Problem: Goal Outcome Summary Goal: Goal Outcome Summary Outcome: Adequate for Discharge Date Met: 02/09/15 VSS. Tele SR with inverted T waves. A&O. Denies pain. Up independently. L/S clear. Angio 02/07 - performed urgent aspiration thrombectomy and placed stent to occluded mid CFX. Right radial approach,+CMS. Per cardio, will need PCI in future for mid LAD and mid RCA. ASA and brillanta. Liptor. Metoprolol changed to coreg d/t low BP's. On lisinopril. D/c to home today. Plan of Care - Ольга Yeboah OT - 02/08/2015 10:20 AM CDT Problem: Goal Outcome Summary Goal: Goal Outcome Summary CR: eval complete and treatment initiated. Pt admitted with acute STEMI and history of smoking s/p stent. 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 At this time Pt alert, oriented and able to follow 100% commands. Supine>sit independently. UE/LE dressing withset-up and SBA. Sit<>stand and functional mobility x 10' with SBA. OT issued handouts and provided education in benefits of Cardiac Rehab/walking HEP, signs/symptoms of activity intolerance and controllable risk factors. Pt able to verbalize good understanding. Anticipate he will do well at home. Recommend Phase II OP CR upon D/C. Occupational Therapy Discharge Summary Reason for therapy discharge: All goals and outcomes met, no further needs identified. Progress towards therapy goal(s). See goals on Care Plan in [facility] electronic health record for goal details. Goals met Therapy recommendation(s): Continued therapy is recommended. Rationale/Recommendations: Pt would benefit from Phase II Outpatient Cardiac Rehab upon D/C. Plan of Care - Isabel Granados RN - 02/07/2015 7:24 PM CDT Problem: Individualization Goal: 1. Patient Specific Preference Outcome: Improving TR band off since 1900. Site WNL. NTG off. NS at 75cc/hr. No chest pain. Tylenol for headache. SB. BP stable. Sats 100% RA. Pharmacy-Admission Medication History - Gurpreet Parra RP - 02/07/2015 6:24 PM CDT Admission medication history interview status for this patient is complete. See [facility] admission navigator for allergy information, prior to admission medications and immunization status. 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 yes Prior to Admission medications Medication Sig Last Dose Taking? Auth Provider aspirin 325 MG tablet Take 325 mg by mouth daily 02/07/2015 at am Yes Dummy, Bfp User Atorvastatin Calcium (LIPITOR PO) Take 10 mg by mouth daily 02/07/2015 at am Yes Reported, Patient AMITRIPTYLINE HCL PO Take 25 mg by mouth At Bedtime 02/06/2015 at Unknown time Yes Reported, Patient documented in this encounter Plan of Treatment Scheduled Referrals Name Type Priority Associated Diagnoses Order S chedule Follow-Up with Cardiac Referral Routine ST elevation myoca rdial Expected: 02/27/2015 Advanced [facility] infarction (STEMI), (Ap proximate), Provider unspecified artery (H) Expir es: 02/09/2016 Cardiac Rehab Referral Referral Routine ST elevation myoca rdial Ordered: 02/09/2015 infarction (STEMI), unspecified artery (H) Follow-Up with Referral Routine ST elevation myocardial Ex pected: 03/28/2015 Huc Ob infarction (STEMI), (Approxi mate), unspecified artery (H) Expir es: 02/09/2016 documented as of this encounter Procedures Procedure Name Priority Date/Time Associated Comments Diagnosis MRSA MSSA PCR, NASAL Routine 02/08/2015 1:[address] elevation R esults for this SWAB CDT myocardial procedure are i n infarction (STEMI), the resu lts unspecified artery section. (H) ECHO COMPLETE WITH Routine 02/08/2015 10:14 Resul ts for this OPTISON AM CDT procedure are i n the results section. TROPONIN I Timed 02/08/2015 5:[address] elevation Results f or this CDT myocardial procedure are i n infarction (STEMI), the resu lts unspecified artery section. (H) NT PROBNP INPATIENT Routine 02/08/2015 5:[address] elevation Re sults for this CDT myocardial procedure are i n infarction (STEMI), the resu lts unspecified artery section. (H) MAGNESIUM Routine 02/08/2015 5:[address] elevation Results f or this CDT myocardial procedure are i n infarction (STEMI), the resu lts unspecified artery section. (H) LIPID REFLEX TO DIRECT Routine 02/08/2015 5:[address] elevation Results for this LDL PANEL CDT myocardial procedure are i n infarction (STEMI), the resu lts unspecified artery section. (H) BASIC METABOLIC PANEL Routine 02/08/2015 5:[address] elevation Results for this CDT myocardial procedure are i n infarction (STEMI), the resu lts unspecified artery section. (H) CBC WITH PLATELETS Routine 02/08/2015 5:[address] elevation Res ults for this CDT myocardial procedure are i n infarction (STEMI), the resu lts unspecified artery section. (H) TROPONIN I Timed 02/07/2015 10:10 ST elevation Results for this PM CDT myocardial procedure are i n infarction (STEMI), the resu lts unspecified artery section. (H) TROPONIN I Timed 02/07/2015 4:[address] elevation Results f or this CDT myocardial procedure are i n infarction (STEMI), the resu lts unspecified artery section. (H) EKG 12-LEAD, TRACING STAT 02/07/2015 4:06 PM R esults for this ONLY CDT procedure are i n the results section. HEART CATH LEFT HEART STAT 02/07/2015 3:16 PM Results for this CATH CDT procedure are i n the results section. XR CHEST PORT 1 VIEW STAT 02/07/2015 2:31 PM R esults for this CDT procedure are i n the results section. TROPONIN POCT Routine 02/07/2015 2:[address] elevation Results for this CDT myocardial procedure are i n infarction (STEMI), the resu lts unspecified artery section. (H) CBC WITH PLATELETS & STAT 02/07/2015 2:[address] elevation R esults for this DIFFERENTIAL CDT myocardial procedure are i n infarction (STEMI), the resu lts unspecified artery section. (H) INR STAT 02/07/2015 2:[address] elevation Results f or this CDT myocardial procedure are i n infarction (STEMI), the resu lts unspecified artery section. (H) COMPREHENSIVE STAT 02/07/2015 2:[address] elevation Results for this METABOLIC PANEL CDT myocardial procedure ar e in infarction (STEMI), the resu lts unspecified artery section. (H) EKG 12-LEAD, TRACING STAT 02/07/2015 2:16 PM R esults for this ONLY CDT procedure are i n the results section. documented in this encounter Results Cardiac Cath: Coronary Angiography Adult Order (02/28/2015 12:44 PM CDT) Anatomical Region Laterality Modality Radio Fluoroscopy, R adio Fluoroscopy Specimen (Source) Anatomical Location Collection Method / Collectio n Time Received Time / Laterality Volume Narrative 02/28/2015 2:20 PM CDT LIMITED LEFT HEART CATHETERIZATION, SCALE TESTER CHRONIC TOTAL OCCLUSION ANGIOPLASTY OF THE LAD [...] approximately 2-[address] Dominique Ayala di anju aspiration of the clot in [...] ?? 1. Successful stenting of an LAD SCALE TESTER fro m 99-100% down to 0, although there is diffuse disease in the small di stal LAD, although it may enlarge now that there is better flow. 2. Successful stenting of a mid RCA with narrowings up to 90% down to 0; however, there is diffuse 40-50% dise ase throughout the right coronary artery. RECOMMENDATION: ??The patient will follo urszula at [facility] Heart in the next 1-2 [...] left circumflex in the OM. cc: ??MD ORALIA Ram MD Procedure Note Oralia Cole MD - 02/28/2015Format ting of this note might be different from the original. LIMITED LEFT HEART CATHETERIZATION, SCALE TESTER CHRONIC TOTAL OCCLUSION ANGIOPLASTY OF THE LAD [...] approximately 2-[address] Dominique Ayala di anju aspiration of the clot in [...] CONCLUSION: 1. Successful stenting of an LAD SCALE TESTER fro m 99-100% down to 0, although there is diffuse disease in the small di stal LAD, although it may enlarge now that there is better flow. 2. Successful stenting of a mid RCA with narrowings up to 90% down to 0; however, there is diffuse 40-50% dise ase throughout the right coronary artery. RECOMMENDATION: The patient will followu p at [facility] Heart in the next 1-2 [...] left circumflex in the OM. cc: MD ORALIA Ram MD Deana Block APRN, CNP CV CARDIAC CATH OR DERABLES INR (02/27/2015 2:02 PM CDT) P athologist Signature INR 0.95 0.86 - 1.14 [facility] Specimen Anatomical Collection Method Collection Time Receive d Time (Source) Location / / Volume Laterality Blood specimen 02/27/2015 2:02 PM 015 2:05 (specimen) CDT PM CDT Deana Block APRN, CNP LAB - BLOOD ORDERA BLES Performing Organization Address City/State/ZIP Code Phon e Number M [facility] [address], [place] [address] [facility] [address] [place], [place] [address] [email or web address]] [phone] Partial thromboplastin time (02/27/2015 2:02 PM CDT) P athologist Signature PTT 30 22 - 37 sec [facility] Specimen Anatomical Collection Method Collection Time Receive d Time (Source) Location / / Volume Laterality Blood specimen 02/27/2015 2:02 PM 015 2:05 (specimen) CDT PM CDT Deana Block APRN [employer] LAB - BLOOD ORDERA BLES Performing Organization Address City/State/ZIP Code Phon e Number M [place] [id number], [place] [address] [place] [address] [place], [place] [address], [facility] [phone] CBC with platelets differential (02/27/2015 2:02 PM CDT) Patholo gist Method Time Signature WBC 6.3 4.0 - [place] 11.0 [facility] 10e9/L [employer] [facility] RBC Count 4.65 4.4 - 5.9 [place] 10e12/L [facility] Hemoglobin 14.2 13.3 - [place] 17.7 g/dL [facility] Hematocrit 41.1 40.0 - [place] 53.0 % [facility] MCV 88 78 - 100 [facility] MCH 30.5 26.5 - [place] 33.0 pg [facility] MCHC 34.5 31.5 - [place] 36.5 g/dL [facility] RDW 14.8 10.0 - [place] 15.0 % [facility] Platelet Count 279 150 - 450 [place] 10e9/L [facility] Diff Method Automated [facility] % Neutrophils 58.3 % [facility] % Lymphocytes 31.5 % [facility] % Monocytes 6.7 % [facility] % Eosinophils 2.7 % [facility] % Basophils 0.5 % [facility] % Immature 0.3 % [place] Granulocytes [facility] Absolute 3.7 1.6 - 8.3 [place] Neutrophil 10e9/L [facility] Absolute 2.0 0.8 - 5.3 [place] Lymphocytes 10e9/L [facility] Absolute 0.4 0.0 - 1.3 [place] Monocytes 10e9/L [facility] Absolute 0.2 0.0 - 0.7 [place] Eosinophils 10e9/L [facility] Absolute 0.0 0.0 - 0.2 [place] Basophils [facility] Abs Immature 0.0 0 - 0.4 [place] Granulocytes [address] Specimen Anatomical Collection Method Collection Time Receive d Time (Source) Location / / Volume Laterality Blood specimen 02/27/2015 2:02 PM 015 2:05 (specimen) CDT PM CDT Deana Block APRN [employer] LAB - BLOOD ORDERA BLES Performing Organization Address City/State/ZIP Code Phon e Number M [place] [address] [phone] [facility] [address] [phone] Basic metabolic panel (02/27/2015 2:02 PM CDT) athologist Signature Sodium 139 133 - 144 [place] mmol/L [facility] Potassium 4.3 3.4 - 5.3 [place] mmol/L [facility] Chloride 102 94 - 109 [place] mmol/L [facility] Carbon Dioxide 28 20 - 32 [place] mmol/L [facility] Anion Gap 9 3 - 14 [place] mmol/L [facility] Glucose 94 70 - 99 [place] mg/dL [facility] Urea Nitrogen 12 7 - 30 [place] mg/dL [facility] Creatinine 0.95 0.66 - [place] 1.25 mg/dL [facility] GFR Estimate 80 >60 [place] mL/min/1.[address] Comment: Non GFR Calc GFR Estimate If Black >90 >60 mL/min/1.7m2 F [facility] GFR Calc HOSP ITAL Calcium 8.7 8.5 - 10.1 mg/dL [facility] Specimen Anatomical Collection Method Collection Time Receive d Time (Source) Location / / Volume Laterality Blood specimen 02/27/2015 2:02 PM 015 2:05 (specimen) CDT PM CDT Deana Block APRN, CNP LAB - BLOOD ORDERA BLES Performing Organization Address City/[facility]/ZIP Code Phon e Number M [facility] [address] [place], [place] [address] [facility] [address] [place], [place] [address], [facility] [phone] Methicillin Resistant Staph Aureus PCR (02/08/2015 1:43 PM CDT) Component Value Ref Test Analysis Performed At [employer] Range Method Time Signature Specimen Nares [facility] Methicillin Negative NEG [facility] Resist/Sens S. MRSA Negative: SA Positive [place] [facility] aureus PCR MRSA target DNA not detected , presumed negative for MRSA colonization or the [facility] number of bacteria present may be below the limit of detect ion. [place] Staphylococcus aureus target DNA detected, presumed positive for SA colonization. A positive test does not nec essarily indicate the presence of viable organisms. It is, however, presumptive for the presence of SA. ??Thi s result does not preclude MRSA nasal colonization. FDA approved assay performed using [employer] GeneXpert(R) real -time PCR. Specimen (Source) Anatomical Collection Method Collection Time Re ceived Time Location / / Volume Laterality Nasal structure 02/08/2015 1:43 5 2:01 (body structure) PM CDT PM CDT Oralia Burgess MD LAB - MICRO GENERAL ORDERABL ES Performing Organization Address City/State/ZIP Code Phon e Number [address] [address] [facility] [address] [place], [place] [address], [facility] [phone] ECHO COMPLETE WITH OPTISON (02/08/2015 10:14 AM CDT) Anatomical Region Laterality Modality Echocardiography Specimen (Source) Anatomical Collection Method Collection Time Re ceived Time Location / / Volume Laterality 02/08/2015 9:49 AM CDT Narrative 02/08/2015 2:48 PM CDT Interpretation Summary ?Version 2 [facility] [address] [place] [address] Name: SHELLIE NICOLE : 1950 Study Date: 02/08/2015 09:49 AM Age: 64 yrs Gender: Male Patient Location: [facility] Reason For Study: Cardiomyopathy Ordering Physician: Tesha Nowak Referring Physician: DOMINIQUE AYALA Performed By: Josemanuel Daniel RDCS BSA: 2.0 m2 Height: 69 in Weight: 195 lb HR: 58 BP: 125/89 mmHg Procedure Complete Portable Echo Adult. Contrast O ptison. Interpretation Summary The visual ejection fraction is estimate d at 55-60%. There is mild to moderate lateral wall h ypokinesis. There is borderline septal hypokinesis. There is mild inferolateral wall hypokin esis. Incidental finding-liver cyst (simple) 1 .5 x 2.6cm Left Ventricle The left ventricle is normal in size. Th ere is normal left ventricular wall thickness. The visual ejection fraction is estimated at 55-60%. E by E prime ratio is between 8 and 15, which is inde terminate for assessment of left ventricular filling pressures. There is mild to moderate lateral wall hypokinesis. There is borderline septal hypokinesis. There is mild inferolateral wall hypokinesis. Right Ventricle The right ventricle is normal in structu re, function and size. Atria The left atrium is borderline dilated. R ight atrial size is normal. There is no color Doppler evidence of an atrial s acosta. Mitral Valve There is trace to mild mitral regurgitat ion. Tricuspid Valve Right ventricular systolic pressure coul d not be approximated due to inadequate tricuspid regurgitation. Aortic Valve The aortic valve is trileaflet. Pulmonic Valve The pulmonic valve is not well seen, but is grossly normal. Vessels Normal size aorta. The IVC is normal in size and reactivity with respiration, suggesting normal central venous pressur e. Pericardium The pericardium appears normal. Rhythm The rhythm was normal sinus. MMode/2D Measurements & Calculations IVSd: 1.1 cm LVIDd: 4.9 cm LVIDs: 2.8 cm LVPWd: 1.0 cm FS: 41.9 % EDV(Teich): 112.2 ml ESV(Teich): 30.6 ml LV mass(C)d: 185.7 grams Ao root diam: 3.6 cm LA dimension: 4.1 cm asc Aorta Diam: 3.5 cm LA/Ao: 1.1 LVOT diam: 1.9 cm LVOT area: 2.8 cm2 LA Volume (BP): 34.0 ml LA Volume Index (BP): 16.7 ml/m2 Doppler Measurements & Calculations MV E max robby: 93.3 cm/sec MV A max robby: 100.7 cm/sec MV E/A: 0.93 MV dec time: 0.24 sec Lateral E/e': 11.8 Medial E/e': 12.4 Report approved by: Jacki Rodriguez 02/08/2015 02:49 PM Procedure Note Oralia Cole MD - 02/08/2015Format ting of this note might be different from the original. Interpretation Summary Version 2 [facility] [address] [facility] [place] [address] Name: SHELLIE NICOLE : 1950 Study Date: 02/08/2015 09:49 AM Age: 64 yrs Gender: Male Patient Location: [facility] Reason For Study: Cardiomyopathy Ordering Physician: Tesha Nowak Referring Physician: DOMINIQUE AYALA Performed By: Josemanuel Daniel RDCS BSA: 2.0 m2 Height: 69 in Weight: 195 lb HR: 58 BP: 125/89 mmHg Procedure Complete Portable Echo Adult. Contrast O ptison. Interpretation Summary The visual ejection fraction is estimate d at 55-60%. There is mild to moderate lateral wall h ypokinesis. There is borderline septal hypokinesis. There is mild inferolateral wall hypokin esis. Incidental finding-liver cyst (simple) 1 .5 x 2.6cm Left Ventricle The left ventricle is normal in size. Th ere is normal left ventricular wall thickness. The visual ejection fraction is estimated at 55-60%. E by E prime ratio is between 8 and 15, which is inde terminate for assessment of left ventricular filling pressures. There is mild to moderate lateral wall hypokinesis. There is borderline septal hypokinesis. There is mild inferolateral wall hypokinesis. Right Ventricle The right ventricle is normal in structu re, function and size. Atria The left atrium is borderline dilated. R ight atrial size is normal. There is no color Doppler evidence of an atrial s acosta. Mitral Valve There is trace to mild mitral regurgitat ion. Tricuspid Valve Right ventricular systolic pressure coul d not be approximated due to inadequate tricuspid regurgitation. Aortic Valve The aortic valve is trileaflet. Pulmonic Valve The pulmonic valve is not well seen, but is grossly normal. Vessels Normal size aorta. The IVC is normal in size and reactivity with respiration, suggesting normal central venous pressur e. Pericardium The pericardium appears normal. Rhythm The rhythm was normal sinus. MMode/2D Measurements & Calculations IVSd: 1.1 cm LVIDd: 4.9 cm LVIDs: 2.8 cm LVPWd: 1.0 cm FS: 41.9 % EDV(Teich): 112.2 ml ESV(Teich): 30.6 ml LV mass(C)d: 185.7 grams Ao root diam: 3.6 cm LA dimension: 4.1 cm asc Aorta Diam: 3.5 cm LA/Ao: 1.1 LVOT diam: 1.9 cm LVOT area: 2.8 cm2 LA Volume (BP): 34.0 ml LA Volume Index (BP): 16.7 ml/m2 Doppler Measurements & Calculations MV E max robby: 93.3 cm/sec MV A max robby: 100.7 cm/sec MV E/A: 0.93 MV dec time: 0.24 sec Lateral E/e': 11.8 Medial E/e': 12.4 Report approved by: Jacki Rodriguez 02/08/2015 02:49 PM Crystal Houston APRN [employer] CV ECHO ORDERABLES Nt probnp inpatient (02/08/2015 5:15 AM CDT) athologist Signature N-Terminal Pro 485 0 - 900 [place] BNP Inpatient pg/mL [facility] Comment: Reference range shown and results flagge d as abnormal are suggested inpatient cut points for confirming diagnosis if CHF in an acute setting. Establishing a baseline value for each individual jeremi ent is useful for follow-up. An inpatient or emergency department NT-pr oPBNP <300 pg/mL effectively rules out acute CHF, with 99% negative predictive value. The outpatient non-acute reference range for ruling out CHF is: 0-125 pg/mL (age 18 to less than 75) 0-450 pg/mL (age 75 yrs and older) Specimen Anatomical Collection Method Collection Time Receive d Time (Source) Location / / Volume Laterality 02/08/2015 5:15 AM 5 5:31 CDT AM CDT Dominique Ayala MD LAB - BLOOD ORDERABLES Performing Organization Address City/State/ZIP Code Phon e Number M [facility] [address] [address] [facility] [address] [address], [place] [phone] (ABNORMAL) Lipid panel reflex to direct LDL (02/08/2015 5:15 AM CDT) athologist Signature Cholesterol 201 (H) <200 mg/dL [facility] Comment: LDL Cholesterol is the primary guide to therapy. The NCEP recommends further evaluation of: patients with cholesterol greater than 200 mg/dL if additional risk facto rs are present, cholesterol greater than 240 mg/dL, triglycerides greater than 1 50 mg/dL, or HDL less than 40 mg/dL. Triglycerides 325 (H) 0 - 150 mg/dL [facility] HDL Cholesterol 24 (L) >40 mg/dL [facility] LDL Cholesterol Calculated 112 0 - 129 mg/dL [facility] Comment: LDL Cholesterol is the primary guide to therapy: LDL-cholesterol goal in high risk patients is <100 mg/dL and in very high risk patients is <70 mg/dL. VLDL-Cholesterol 65 (H) 0 - 30 mg/dL [facility] Cholesterol/HDL Ratio 8.4 (H) 0.0 - 5.0 [facility] Specimen Anatomical Collection Method Collection Time Receive d Time (Source) Location / / Volume Laterality 02/08/2015 5:15 AM 5 5:31 CDT AM CDT Dominique Ayala MD LAB - BLOOD ORDERABLES Performing Organization Address City/State/ZIP Code Phon e Number [facility] [address], [place] [address] [facility] [address] [address], [facility] [phone] Magnesium (02/08/2015 5:15 AM CDT) [facility] Magnesium 1.8 1.6 - 2.3 [facility] mg/dL [facility] Specimen Anatomical Collection Method Collection Time Receive d Time (Source) Location / / Volume Laterality 02/08/2015 5:15 AM 5 5:31 CDT AM CDT Dominique Ayala MD LAB - BLOOD ORDERABLES Performing Organization Address City/State/ZIP Code Phon e Number M [facility] [address] [place], [place] [address] [facility] [address] [address] [facility] [[email or web address] [phone] (ABNORMAL) Troponin I (02/08/2015 5:15 AM CDT) Analysis Performed At [facility] Troponin I ES 4.991 (HH) 0.000 - [facility] 0.045 ug/L [facility] Comment: Critical Value called to and read back Ruiz SOMMER (ICU) ON 02.08.15 AT 0607 BY [place] Specimen Anatomical Collection Method Collection Time Receive d Time (Source) Location / / Volume Laterality Blood specimen 02/08/2015 5:15 AM 015 5:31 (specimen) CDT AM CDT Dominique Ayala MD LAB - BLOOD ORDERABLES Performing Organization Address City/[facility]/ZIP [facility] e Number [place] [address] [address] [facility] [address] [phone] (ABNORMAL) CBC with platelets (02/08/2015 5:15 AM CDT) Analysis Performed At [facility] Signature WBC 7.3 4.0 - 11.0 [place] 10e9/L [facility] RBC Count 4.34 (L) 4.4 - 5.9 [place] 10e12/L [facility] Hemoglobin 13.2 (L) 13.3 - [place] 17.7 g/dL [facility] Hematocrit 38.7 (L) 40.0 - [place] 53.0 % [facility] MCV 89 78 - 100 [facility] MCH 30.4 26.5 - [place] 33.0 pg [facility] MCHC 34.1 31.5 - [place] 36.5 g/dL [facility] RDW 15.3 (H) 10.0 - [place] 15.0 % [facility] Platelet Count 204 150 - 450 [place] 10e9/L [facility] Specimen Anatomical Collection Method Collection Time Receive d Time (Source) Location / / Volume Laterality Blood specimen 02/08/2015 5:15 AM 015 5:31 (specimen) CDT AM CDT Dominique Ayala MD LAB - BLOOD ORDERABLES Performing Organization Address City/State/ZIP [facility] Phon e Number M [facility] [address], [place] [address] [facility] [address] [place], [place] [address], [facility] [phone] (ABNORMAL) Basic metabolic panel (02/08/2015 5:15 AM CDT) [facility] gist Method Time Signature Sodium 139 133 - 144 [place] mmol/L [facility] Potassium 4.0 3.4 - 5.3 [place] mmol/L [facility] Chloride 108 94 - 109 [place] mmol/L [facility] Carbon Dioxide 21 20 - 32 [place] mmol/L [facility] Anion Gap 10 3 - 14 [place] mmol/L [facility] Glucose 101 (H) 70 - 99 [place] mg/dL [facility] Urea Nitrogen 9 7 - 30 [place] mg/dL [facility] Creatinine 0.76 0.66 - [place] 1.25 [facility] mg/dL [facility] GFR Estimate >90 >60 [place] Non GFR Calc mL/min/1. [facility] 7m2 HOSPITAL GFR Estimate >90 >60 [place] If Black GFR Calc mL/min/1. RIDG ES 7m2 [facility] Calcium 7.7 (L) 8.5 - [place] 10.1 [facility] mg/dL HOSPITAL Specimen Anatomical Collection Method Collection Time Receive d Time (Source) Location / / Volume Laterality Blood specimen 02/08/2015 5:15 AM 015 5:31 (specimen) CDT AM CDT Dominique Ayala MD LAB - BLOOD ORDERABLES Performing Organization Address [facility] Phon e Number M [facility] [address], [place] [address] [place] [address] [address] [place], [place] [address] [facility] [[email or web address]] [phone] (ABNORMAL) Troponin I (02/07/2015 10:10 PM CDT) Analysis Performed At [facility] logist Time Signature Troponin I ES 8.347 (HH) 0.000 - [facility] 0.045 ug/L [facility] Comment: The 99th percentile for upper reference range is 0.045 ug/L. ??Troponin values in the range of 0.045 - 0.120 ug/L may be associated with risks of adverse clinical events. Critical Value called to and read back by JUDY MORAN (ICU) ON 02.07.2015 AT 224 6 SP Specimen Anatomical Collection Method Collection Time Receive d Time (Source) Location / / Volume Laterality Blood specimen 02/07/2015 10:10 5 (specimen) PM CDT 10:24 PM CDT Dominique Ayala MD LAB - BLOOD ORDERABLES Performing Organization Address [facility] Phon e Number [facility] [address] [place], [place] [address] [facility] [address] [place], [place] [address], [facility] [phone] (ABNORMAL) Troponin I (02/07/2015 4:22 PM CDT) [facility] Signature Troponin I ES 1.546 (HH) 0.000 - [place] 0.045 ug/L [facility] Comment: The 99th percentile for upper reference range is 0.045 ug/L. ??Troponin values in the range of 0.045 - 0.120 ug/L may be associated with risks of adverse clinical events. Critical Value called to and read back by [employer] (ICU) ON 02.07.2015 AT 1655 SP Specimen Anatomical Collection Method Collection Time Receive d Time (Source) Location / / Volume Laterality Blood specimen 02/07/2015 4:22 PM 015 4:26 (specimen) CDT PM CDT Dominique Ayala MD LAB - BLOOD ORDERABLES Performing Organization Address [facility] Phon e Number M [facility] [address] [place], [place] [address] [facility] [address] [place], [place] [address], [facility] [phone] EKG 12-lead, tracing only (02/07/2015 4:06 PM CDT) [facility] gist Method Time Signature Interpretation ECG Click View RADIOLOGY Image link RESULTS to view waveform and result Specimen (Source) Anatomical Collection Method Collection Time Re ceived Time Location / / Volume Laterality 02/07/2015 4:06 PM CDT Dominique Ayala MD ECG ORDERABLES Performing Organization Address City/State/ZIP Code Phon e Number RADIOLOGY RESULTS Heart Cath Left heart cath (02/07/2015 3:16 PM CDT) Anatomical Region Laterality Modality Radio Fluoroscopy, R adio Fluoroscopy Specimen (Source) Anatomical Location Collection Method / Collectio n Time Received Time / Laterality Volume Narrative 02/07/2015 3:58 PM CDT 1. Coronary angiogram 2. Aspiration thrombectomy of the circum flex coronary artery 3. Percutaneous coronary intervention di stal circumflex-implantation of 3.5 by 16mm lengtheverolimus eluting was premier stent 4. Left heart catheterization Left ventriculogram Approach right radial artery Complications none noted Indication acute inferolateral ST segmen t elevation myocardial infarction. The patient was evaluated by and sent directly to the cardiac catheterization laborator y for revascularization. He has history of symptoms beginning approx imately 30-45 minutes before his evaluation emergency room. He has a previous history of stent implantation. This is considered an sarah gency procedure so formal informed consent was not obtained. We br azeb explained the procedure and the patient expressed willingness to proceed. 1. Coronary angiogram ?? The right radial region was prepped and draped in standard fashion and infiltrated with 1% lidocaine. The right radial artery was entered percutaneously with a Cook needle and wi th Seldinger technique a 6 Sammarinese sheath was placed in the right ra dial artery. The patient was artery received intravenous heparin 6500 units, aspirin, and ticagrelor 180 mg. We advanced a 5 Frenc h Gemma catheter and seated this catheter in the ascending aorta. We measured pressures. We seated the catheter in the ostium of the right coronary. Right coronary angiography was performed in orthogonal views. We exchanged for EBU with 75 guide and seated this guide in t he ostium of the ??left main. Left coronary angiography was performed in orthogonal views. We notice subtotal narrowing in distal circumflex before the terminal marginal branch with filling defect consistent wi th thrombus. It was clear that the circumflex was the infarct related c oronary vessel. We noted significant narrowing to the distal LAD and mid right coronary GERSON 3 flow in both of these vessels. 2. ??Aspiration thrombectomy of circumfl ex We advanced an 014 run-through wire unde r fluoroscopic guidance down the circumflex into the terminal margina l branch. We advanced a Pronto LP aspiration catheter. We aspirated abo ut 10 cc of atheromatous debris and acute red thrombus. Angiogram s now showed GERSON 3 flow down the circumflex with residual tight narro wing before the terminal marginal branch. 3. Percutaneous coronary intervention di stal circumflex: 3.5 by 16mm length everolimus eluting PROMUS PREMIER stent We advanced a 3.512 mm length noncomplia nt balloon and predilated the lesion. We then advanced a 3.5 by 16mm l engtheverolimus eluting was premier stent deploying this stent 11 ou nces. We then we advanced a 12 mm length noncompliant balloon and postd ilated to 16 atmospheres. The balloon was withdrawn the guiding cathet er. We performed final views in the SANTANA and NEPALESE projection for a very nice result with no residual narrowing but GERSON 3 flow down the circu mflex. 4. Left heart catheterization Exchanged for a 6 Sammarinese pigtail cathete r. We crossed aortic valve and noted no gradient. We measured pre-left ventriculogram pressures. 5. Left ventriculogram We performed a left ventriculogram in [facility] in the 30 degrees SANTANA view. The catheter was flushed and aspir ated. We measured post ventriculogram pressures. We withdrew th e catheter clustered valve. We noted no gradient. We stopped the procedure this point. The catheter was removed the sheath. The sheath was with the wrist. A TR balance was good hemostasis. The patient was returned tali to the CCU for observation. He was free of chest pain and EKG showed the ST elevation had resolved Findings Hemodynamics: Left ventricular vessel pr essure 14 Angiography Left ventriculogram: Ejection fraction 4 5%. Normal chamber size. The mid inferior wall moderate hypokinesis. No mitral insufficiency. Antrum Preintervention Left main: No significant narrowing LAD: Difficulty narrowing proximal vesse l. 40% mid vessel. Subtotal narrowing after the takeoff of the large third diagonal branch. The distal LAD is about 2.25 mg in diameter. Is GERSON 3 flow down the LAD Circumflex: A nondominant vessel. 50% re gion of in-stent restenosis at the takeoff of a large third marginal br anch. The 50% ??narrowing present the origin of this marginal bran ch. There is a subtotal narrowing in the distal circumflex befor e the takeoff of the terminal marginal branch with filling defect comp atible thrombus. Right coronary: A dominant vessel. Irreg ular long mid vessel 80% narrowing. Distal 50% narrowing before p osterior ascending and postop branches. GERSON 3 flow is present in the right coronary Postintervention: Postintervention circu mflex is no residual narrowing at the site of the previous subtotal sarbjit nosis with brisk distal GERSON 3 flow and no loss of side branch Assessment: Successful intervention for management acute inferolateral ST segment elevation myocardial infarcti on. The patient has lesions in the mid right coronary and the distal LA D which would be amenable to percutaneous intervention. Recommendations 1) ticagrelor 80 bid 2) asa 81 mg daily 3) metoprolol 25 bid 4) lisinopril 5 mg dialy 5) high potency statin ??atorvastatin 40 mg 6) staged PCI mid RCA and distal LAD DOMINIQUE AYALA MD Procedure Note Dominique Ayala MD - 02/07/2015For matting of this note might be different from the original. 1. Coronary angiogram 2. Aspiration thrombectomy of the circum flex coronary artery 3. Percutaneous coronary intervention di stal circumflex-implantation of 3.5 by 16mm lengtheverolimus eluting was premier stent 4. Left heart catheterization Left ventriculogram Approach right radial artery Complications none noted Indication acute inferolateral ST segmen t elevation myocardial infarction. The patient was evaluated by and sent directly to the cardiac catheterization laborator y for revascularization. He has history of symptoms beginning approx imately 30-45 minutes before his evaluation emergency room. He has a previous history of stent implantation. This is considered an sarah gency procedure so formal informed consent was not obtained. We br azeb explained the procedure and the patient expressed willingness to proceed. 1. Coronary angiogram The right radial region was prepped and draped in standard fashion and infiltrated with 1% lidocaine. The right radial artery was entered percutaneously with a Cook needle and wi th Seldinger technique a 6 Sammarinese sheath was placed in the right ra dial artery. The patient was artery received intravenous heparin 6500 units, aspirin, and ticagrelor 180 mg. We advanced a 5 Frenc h Gemma catheter and seated this catheter in the ascending aorta. We measured pressures. We seated the catheter in the ostium of the right coronary. Right coronary angiography was performed in orthogonal views. We exchanged for EBU with 75 guide and seated this guide in t he ostium of the left main. Left coronary angiography was performed in orthogonal views. We notice subtotal narrowing in distal circumflex before the terminal marginal branch with filling defect consistent wi th thrombus. It was clear that the circumflex was the infarct related c oronary vessel. We noted significant narrowing to the distal LAD and mid right coronary GERSON 3 flow in both of these vessels. 2. Aspiration thrombectomy of circumflex We advanced an 014 run-through wire unde r fluoroscopic guidance down the circumflex into the terminal margina l branch. We advanced a [employer] aspiration catheter. We aspirated abo ut 10 cc of atheromatous debris and acute red thrombus. Angiogram s now showed GERSON 3 flow down the circumflex with residual tight narro wing before the terminal marginal branch. 3. Percutaneous coronary intervention di stal circumflex: 3.5 by 16mm length everolimus eluting PROMUS PREMIER stent We advanced a 3.512 mm length noncomplia nt balloon and predilated the lesion. We then advanced a 3.5 by 16mm l engtheverolimus eluting was premier stent deploying this stent 11 ou nces. We then we advanced a 12 mm length noncompliant balloon and postd ilated to 16 atmospheres. The balloon was withdrawn the guiding cathet er. We performed final views in the SANTANA and NEPALESE projection for a very nice result with no residual narrowing but GERSON 3 flow down the circu mflex. 4. Left heart catheterization Exchanged for a 6 Sammarinese pigtail cathete r. We crossed aortic valve and noted no gradient. We measured pre-left ventriculogram pressures. 5. Left ventriculogram We performed a left ventriculogram in co ntrast in the 30 degrees SANTANA view. The catheter was flushed and aspir ated. We measured post ventriculogram pressures. We withdrew th e catheter clustered valve. We noted no gradient. We stopped the procedure this point. The catheter was removed the sheath. The sheath was with the wrist. A TR balance was good hemostasis. The patient was returned tali to the CCU for observation. He was free of chest pain and EKG showed the ST elevation had resolved Findings Hemodynamics: Left ventricular vessel pr essure 14 Angiography Left ventriculogram: Ejection fraction 4 5%. Normal chamber size. The mid inferior wall moderate hypokinesis. No mitral insufficiency. Antrum Preintervention Left main: No significant narrowing LAD: Difficulty narrowing proximal vesse l. 40% mid vessel. Subtotal narrowing after the takeoff of the large third diagonal branch. The distal LAD is about 2.25 mg in diameter. Is GERSON 3 flow down the LAD Circumflex: A nondominant vessel. 50% re gion of in-stent restenosis at the takeoff of a large third marginal br anch. The 50% narrowing present the origin of this marginal bran ch. There is a subtotal narrowing in the distal circumflex befor e the takeoff of the terminal marginal branch with filling defect comp atible thrombus. Right coronary: A dominant vessel. Irreg ular long mid vessel 80% narrowing. Distal 50% narrowing before p osterior ascending and postop branches. GERSON 3 flow is present in the right coronary Postintervention: Postintervention circu mflex is no residual narrowing at the site of the previous subtotal sarbjit nosis with brisk distal GERSON 3 flow and no loss of side branch Assessment: Successful intervention for management acute inferolateral ST segment elevation myocardial infarcti on. The patient has lesions in the mid right coronary and the distal LA D which would be amenable to percutaneous intervention. Recommendations 1) ticagrelor 80 bid 2) asa 81 mg daily 3) metoprolol 25 bid 4) lisinopril 5 mg dialy 5) high potency statin atorvastatin 40 m g 6) staged PCI mid RCA and distal LAD DOMINIQUE AYALA MD Riley King MD CV CARDIAC CATH ORDERABLES Chest XR, 1 view PORTABLE (02/07/2015 2:31 PM CDT) Anatomical Region Laterality Modality Chest Computed Radiography Specimen (Source) Anatomical Location Collection Method / Collectio n Time Received Time / Laterality Volume Impressions 02/07/2015 2:36 PM CDT IMPRESSION: Negative. LUCY ASHLEY MD Narrative 02/07/2015 2:36 PM CDT XR CHEST PORT 1 VW 02/07/2015 2:36 PM HISTORY: CHEST PAIN, ? Procedure Note Lucy Ashley MD - 02/07/2015Formatt ing of this note might be different from the original. XR CHEST PORT 1 VW 02/07/2015 2:36 PM HISTORY: CHEST PAIN, IMPRESSION IMPRESSION: Negative. LUCY ASHLEY MD Riley King MD IMG DIAGNOSTIC IMAGING ORDER OLIVIA Troponin POCT (02/07/2015 2:25 PM CDT) athologist Signature Troponin I 0.00 0.00 - 0.10 POINT OF CARE ug/L TEST, HANDHELD METER Specimen Anatomical Collection Method Collection Time Receive d Time (Source) Location / / Volume Laterality 02/07/2015 2:25 PM 5 2:40 CDT PM CDT Mel Reza MD LAB - ENTER/EDIT POCT Performing Organization Address City/State/ZIP Code Phon e Number FV POINT OF CARE TEST, HANDHELD METER POINT OF CARE TEST, HANDHELD METER (ABNORMAL) Comprehensive metabolic panel (02/07/2015 2:23 PM CDT) athologist Signature Sodium 141 133 - 144 [place] mmol/L [facility] Potassium 3.9 3.4 - 5.3 [place] mmol/L [facility] Chloride 104 94 - 109 [place] mmol/L [facility] Carbon Dioxide 28 20 - 32 [place] mmol/L [facility] Anion Gap 9 3 - 14 [place] mmol/L [facility] Glucose 126 (H) 70 - 99 [place] mg/dL [facility] Urea Nitrogen 13 7 - 30 [place] mg/dL [facility] Creatinine 0.93 0.66 - [place] 1.25 mg/dL [facility] GFR Estimate 81 >60 [place] mL/min/1.7 [facility] m2 [facility] Comment: Non GFR Calc GFR Estimate If Black >90 >60 mL/min/1.7m2 F [facility] GFR Calc HOSP ITAL Calcium 9.1 8.5 - 10.1 mg/dL [facility] Bilirubin Total 0.3 0.2 - 1.3 mg/dL [facility] Albumin 4.3 3.4 - 5.0 g/dL [facility] Protein Total 8.2 6.8 - 8.8 g/dL [facility] Alkaline Phosphatase 103 40 - 150 U/L [facility] ALT 30 0 - 70 U/L [facility] AST 21 0 - 45 U/L [facility] Specimen Anatomical Collection Method Collection Time Receive d Time (Source) Location / / Volume Laterality Blood specimen 02/07/2015 2:23 PM 015 2:29 (specimen) CDT PM CDT Riley King MD LAB - BLOOD ORDERABLES Performing Organization Address City/[facility]/ZIP Code Phon e Number M [facility] [address], [place] [address] [facility] [address] [place], [place] [address], [facility] [phone] INR (02/07/2015 2:23 PM CDT) athologist Signature INR 0.90 0.86 - 1.14 [facility] Specimen Anatomical Collection Method Collection Time Receive d Time (Source) Location / / Volume Laterality Blood specimen 02/07/2015 2:23 PM 015 2:29 (specimen) CDT PM CDT Riley King MD LAB - BLOOD ORDERABLES Performing Organization Address City/[facility] Phon e Number M [facility] [address], [place] [address] [place] [address] [address] [place], [place] [address] [[email or web address] [phone] CBC with platelets differential (02/07/2015 2:23 PM CDT) Patholo gist Method Time Signature WBC 7.7 4.0 - [place] 11.0 [facility] 10e9/L [facility] RBC Count 5.50 4.4 - 5.9 [place] 10e12/L [facility] Hemoglobin 17.5 13.3 - [place] 17.7 g/dL [facility] Hematocrit 49.4 40.0 - [place] 53.0 % [facility] MCV 90 78 - 100 [facility] MCH 31.8 26.5 - [facility] 33.0 pg [facility] MCHC 35.4 31.5 - [place] 36.5 g/dL [facility] RDW 15.0 10.0 - [place] 15.0 % [facility] Platelet Count 309 150 - 450 [place] 10e9/L [facility] Diff Method Automated [facility] % Neutrophils 52.6 % [facility] % Lymphocytes 36.0 % [facility] % Monocytes 8.4 % [facility] % Eosinophils 2.2 % [facility] % Basophils 0.5 % [facility] % Immature 0.3 % [place] Granulocytes [facility] Absolute 4.1 1.6 - 8.3 [place] Neutrophil 10e9/L [facility] Absolute 2.8 0.8 - 5.3 [place] Lymphocytes 10e9/L [facility] Absolute 0.7 0.0 - 1.3 [place] Monocytes 10e9/L [facility] Absolute 0.2 0.0 - 0.7 [place] Eosinophils 10e9/L [facility] Absolute 0.0 0.0 - 0.2 [place] Basophils 10e9[facility] Abs Immature 0.0 0 - 0.4 [place] Granulocytes [address] Specimen Anatomical Collection Method Collection Time Receive d Time (Source) Location / / Volume Laterality Blood specimen 02/07/2015 2:23 PM 015 2:29 (specimen) CDT PM CDT Riley King MD LAB - BLOOD ORDERABLES Performing Organization Address City/State/ZIP Code Phon e Number [place] [address] [facility] [address] [phone] EKG 12 lead (02/07/2015 2:16 PM CDT) [employer] Method Time Signature Interpretation ECG Click View RADIOLOGY Image link RESULTS to view waveform and result Specimen (Source) Anatomical Collection Method Collection Time Re ceived Time Location / / Volume Laterality 02/07/2015 2:16 PM CDT Riley King MD ECG ORDERABLES Performing Organization Address City/State/ZIP [facility] Phon e Number RADIOLOGY RESULTS documented in this encounter Visit Diagnoses Diagnosis ST elevation myocardial infarction (STEM I), unspecified artery (H) STEMI (ST elevation myocardial infarctio n) (H) Acute myocardial infarction, unspecified site, episode of care unspecified documented in this encounter Administered Medications Inactive Administered Medications - up to 3 most recent administrations Medication Order MAR Action Action Date Dose Rate Site 0.9% sodium chloride Rate/Dose Verify 02/07/2015 8:00 PM 1,000 mLs 7 5 mL/hr infusion CDT at 75 mL/hr, Intravenous, CONTINUOUS, IF PATIENT IS RECEIVING RENAL DIALYSIS, RN to reduce rate of 0.9 % sodium chloride IV solution to 10 mL /hour (TKO) to prevent fluid overload., Cardiac Post-procedure, Starting on Fri02/07/15 at 1615, Until Fri02/07/15 at 2214 New Bag 02/07/2015 4:14 PM CDT 1,000 mLs 75 mL/hr acetaminophen (TYLENOL) tablet 325-650 m g Given 02/07/2015 11:10 PM CDT 650 mg 325-650 mg, Oral, EVERY 4 HOURS PRN, mild pain, headaches, Starting on Fri02/07/15 at 1601, Maximum acetaminophen dose from all sources = 75 mg/kg/day not to exceed 4 grams/day., Cardiac Post-procedure Given 02/07/2015 5:12 PM CDT 650 mg aspirin EC tablet 81 mg Given 02/09/2015 9:10 AM CDT 81 mg 81 mg, Oral, DAILY, First dose on Fri02/07/15 at 1615, Starting today. May omit if dose given/taken pre-procedure today. Post -procedurally for CAR percutaneous coronary intervention (PCI)., Cardiac Post-procedure Given 02/08/2015 8:31 AM CDT 81 mg atorvastatin (LIPITOR) tablet 40 mg Given 02/08/2015 7:44 PM CDT 40 mg 40 mg, Oral, EVERY EVENING, First dose on Fri02/07/15 at 2000, Post -procedurally for CAR percutaneous coronary intervention (PCI)., Cardiac Post-procedure Given 02/07/2015 8:06 PM CDT 40 mg bivalirudin (ANGIOMAX) bolus from infusion Given 02/07/2015 3:06 PM CDT 67.1 mg pump 67.1 mg 67.1 mg (rounded from 67.05 mg = 0.75 mg/kg ? 89.4 kg), Intravenous, ONCE PRN, when verbally ordered by prescriber during the procedure., Starting on Fri02/07/15 at 1442, For 1 dose, Nurse to administer dose from existing infusion. If no infusion bag or syringe for this order is available, contact pharmacist to re-enter medication order. , Cardiac Intra-procedure carvedilol (COREG) tablet 3.125 mg Given 02/09/2015 9:10 AM CDT 3.125 mg 3.125 mg, Oral, 2 TIMES DAILY WITH MEALS, First dose on Fri02/08/15 at 0900, For Adults, Hold if Heart Rate less than 50 bpm and/or SBP <100mmHg Given 02/08/2015 7:44 PM CDT 3.125 mg fentaNYL (SUBLIMAZE) injection 25-50 mcg Given 02/07/2015 3:08 PM CDT 100 mcg 25-50 mcg, Intravenous, EVERY 2 MIN PRN, moderate to severe pain, other, when verbally ordered by prescriber during the procedure., Starting on Fri02/07/15 at 1442, Doses can be exceeded under direct oversight of the patient by physician., Cardiac Intra-procedure heparin (porcine) injection (LOADING Given 02/07/2015 2:28 PM CD T 6,500 Units DOSE) 6,500 Units (rounded from 6,258 Units = 70 Units/kg ? 89.4 kg), Intravenous, ONCE, On Fri02/07/15 at 1423, For 1 dose, Max dose 10,000 units lidocaine 1 % injection 1-10 mL Given 02/07/2015 3:09 PM CDT 3 mLs 1-10 mL, Subcutaneous, ONCE PRN, For local anesthesia for groin puncture as verbally ordered by prescriber during the procedure., Starting on Fri02/07/15 at 1442, For 1 dose, The provider administers the medication. Dose may be into smaller doses for administration., Cardiac Intra-procedure lisinopril (PRINIVIL,ZESTRIL) tablet 5 m g Given 02/09/2015 9:11 AM CDT 5 mg 5 mg, Oral, DAILY, First dose on Fri02/07/15 at 1615, Hold for Systolic Blood Pressure less than 100 mmHg. Post -procedurally for CAR percutaneous coronary intervention (PCI)., Cardiac Post-procedure Given 02/08/2015 8:31 AM CDT 5 mg Given 02/07/2015 5:13 PM CDT 5 mg midazolam (VERSED) injection 0.5-2 mg Given 02/07/2015 3:08 PM CDT 1 mg 0.5-2 mg, Intravenous, EVERY 2 MIN PRN, other, when verbally ordered by prescriber during the procedure., Starting on Fri02/07/15 at 1442, Doses can be exceeded under direct oversight of the patient by physician., Cardiac Intra-procedure nitroGLYCERIN 50 mg in Rate/Dose Change 02/07/2015 4:49 0.1 mcg/kg/ min 2.7 mL/hr D5W 250 mL (adult std) PM CDT infusion 0.07-2 mcg/kg/min ? 89.4 kg (1.8774-53.64 mL/hr, rounded to 1.9-53.6 mL/hr), Intravenous, CONTINUOUS, Starting on Fri02/07/15 at 1425, For range orders: start at lowest dose ordered. Titrate by 0.1 mcg/kg/min every 5 minutes to keep SBP less than 150 mmHg and/or chest pain relief. Notify prescriber if higher doses are required to achieve blood pressure goals., Initial Set-up verified by: BARNEY and ÓSCAR New Bag 02/07/2015 2:29 PM CDT 0.07 mcg/kg/min 1.9 mL/hr nitroGLYCERIN 50 mg in Rate/Dose Change 02/07/2015 3:00 0.2 mcg/kg/ min 5.4 mL/hr D5W 250 mL (adult std) PM CDT infusion 0.07-2 mcg/kg/min ? 89.4 kg (1.8774-53.64 mL/hr, rounded to 1.9-53.6 mL/hr), Intravenous, CONTINUOUS PRN, when verbally ordered by prescriber during the procedure., Starting on Fri02/07/15 at 1442, Start at 0.07 to 0.15 mcg/kg/min. Titrate up by 0.1 to 0.2 mcg/kg/min every 5 minutes PRN as directed by the prescriber to a max of 2 mcg/kg/min, Cardiac Intra-procedure Rate/Dose Change 02/07/2015 2:31 PM CDT 0.07 mcg/kg/min 1.9 mL/hr nitroglycerin Cmpd syr inj, 10ml 100-200 Given 02/07/2015 3: 09 PM CDT 1,000 mcg mcg 100-200 mcg, INTRACORONARY, EVERY 1 MIN PRN, when verbally ordered by prescriber during procedure, Starting on Fri02/07/15 at 1442, Prescriber will infuse each dose, Cardiac Intra-procedure perflutren diluted 1mL to 2mL with saline Given 02/08/2015 10:15 AM CDT 3 mLs (OPTISON) diluted injection 3 mL 3 mL, Intravenous, ONCE, On Fri02/08/15 at 1015, For 1 dose sodium chloride (PF) 0.9% PF flush 3 mL Given 02/08/2015 8:01 PM CDT 3 mLs 3 mL, Intravenous, EVERY 8 HOURS, First dose on Fri02/07/15 at 1423, And Q1H PRN, to lock peripheral IV dormant line. sodium chloride (PF) 0.9% PF flush 3 mL Given 02/09/2015 9:11 AM CDT 3 mLs 3 mL, Intracatheter, EVERY 8 HOURS, First dose on Fri02/07/15 at 1615, And Q1H PRN, to lock peripheral IV dormant line., Cardiac Post-procedure Given 02/09/2015 12:08 AM CDT 3 mLs ticagrelor (BRILINTA) tablet 180 mg Given 02/07/2015 2:28 PM CDT 180 mg 180 mg, Oral, ONCE, On Fri02/07/15 at 1425, For 1 dose, When using maintenance Brilinta dosing in conjunction with aspirin therapy, the daily dose of aspirin should not exceed 100mg ticagrelor (BRILINTA) tablet 90 mg Given 02/09/2015 9:10 AM CDT 90 mg 90 mg, Oral, EVERY 12 HOURS, First dose (after last reorder) on Fri02/08/15 at 0800, Post -procedurally for CAR percutaneous coronary intervention (PCI). When using maintenance Brilinta dosing in conjunction with aspirin therapy, the daily dose of aspirin should not exceed 100mg, Cardiac Post-procedure Given 02/08/2015 7:59 PM CDT 90 mg Given 02/08/2015 8:32 AM CDT 90 mg verapamil (ISOPTIN) injection 1-2.5 mg Given 02/07/2015 2:49 PM CDT 2.5 mg 1-2.5 mg, INTRA-ARTERIAL, ONCE PRN, when verbally ordered by prescriber during procedure , Starting on Fri02/07/15 at 1442, For 1 dose, For radial or brachial access., Cardiac Intra-procedure documented in this encounter Active and Recently Administered Medications Times are shown in CDT. Scheduled Medication Order 02/07/2015 02/08/2015 02/09/2015 aspirin EC tablet 81 mg 1701 (Not Given - Provider: Isabel Granados RN - Reason: Other - Comment: given in ED) 0831 (Given - Provider: Madelaine matthews RN) 0910 (Given - Provider: Radha Eduardo RN ) 81 mg, Oral, DAILY, First dose on Fri at 1615, Starting today. May omit if dose given/taken pre-procedure today. Post -procedurally for CAR percutaneous coronary intervention (PCI)., Cardiac Post-procedure atorvastatin (LIPITOR) tablet 40 mg 2005 (Given - Prov ider: Gabriela Ngo RN) 1943 (Given - Provider: Deandre Licea RN) 40 mg, Oral, EVERY EVENING, First dose o n Fri02/07/15 at 2000, Post - procedurally for CAR percutaneous coronary intervention (PCI)., Cardiac Post-procedure carvedilol (COREG) tablet 3.125 mg 0900 (Canceled Entry - Provider: Deandre Licea RN - Comment: procedure)1800 (Canceled Entry - Provider: Deandre Licea RN)1944 (Given - Provider: Deandre Licea RN) 0910 (Given - Provider: Radha Eduardo RN) 3.125 mg, Oral, 2 TIMES DAILY WITH MEALS , First dose on Fri02/08/15 at 0900, For Adults, Hold if Heart Rate less than 50 bpm and/or SBP <100mmHg heparin (porcine) injection (LOADING DOSE) (COMPLETED) 1428 (Given - Provider: Svetlana Elaine RN) 6,500 Units (rounded from 6,258 Units = 70 Units/kg ? 89.4 kg), Intravenous, ONCE, Fri02/07/15 at 1423, For 1 dose, Max dose 10,000 units lisinopril (PRINIVIL,ZESTRIL) tablet 5 mg 1713 (Given - Provider: Isabel Granados RN) 0831 (Given - Provider: Madelaine Barroso RN) 0911 (G iven - Provider: Radha Eduardo RN) 5 mg, Oral, DAILY, First dose on 01/23 at 1615, Hold for Systolic Blood Pressure less than 100 mmHg. Post -procedurally for CAR percutaneous coronary intervention (PCI)., Cardiac Post-procedure perflutren diluted 1mL to 2mL with salin e (OPTISON) diluted injection 3 mL (COMPLETED) 1015 (Given - Provider: Josemanuel Amin omment: 6ml wasted.) 3 mL, Intravenous, ONCE, Fri02/08/15 at 1015, For 1 dose sodium chloride (PF) 0.9% PF flush 3 mL (CANCELED) 160 3 (Not Given - Provider: Isabel Granados RN - Reason: IV Infusing)2134 (Not Given - Provider: Gabriela Ngo RN - Reason: IV Infusing) 0721 (Not Given - Provider: Sherley arzola RN - Reason: Patient sleeping)1423 (Canceled Entry - Provider: Deandre Licea RN)2000 (Given - Provider: Deandre Licea RN - Comment: being transferred to Telemetry unit) 0623 (Canceled Entry - Provider: Radha Eduardo RN - Comment: Automatically canceled at discontinue of medication order) 3 mL, Intravenous, EVERY 8 HOURS, First dose on Fri02/07/15 at 1423, And Q1H PRN, to lock peripheral IV dormant line. 2223 (Cancele d Entry - Provider: Deandre Licea RN) sodium chloride (PF) 0.9% PF flush 3 mL (CANCELED) 165 1 (Not Given - Provider: Isabel Granados RN - Reason: IV Infusing)2345 (Not Given - Provider: Sherley Daley RN - Reason: IV Infusing) 0815 (Canceled Entry - Provider: Deandre Licea RN)1927 (Canceled Entry - Provider: Deandre Licea RN) 0008 (Given - Provider: Na Moore RN)0911 (Given - Provider: Radha Eduardo, FRANKLIN) 3 mL, Intracatheter, EVERY 8 HOURS, Firs t dose on Fri02/07/15 at 1615, And Q1H PRN, to lock peripheral IV dormant line., Cardiac Post-procedure ticagrelor (BRILINTA) tablet 180 mg (COMPLETED) 1428 ( Given - Provider: Svetlana Elaine RN) 180 mg, Oral, ONCE, Fri02/07/15 at 1425, For 1 dose, When using maintenance Brilinta dosing in conjunction with aspirin therapy, the daily dose of aspirin should not exceed 100mg ticagrelor (BRILINTA) tablet 90 mg 0832 (Given - Provider: Madelaine Barroso, FRANKLIN)1959 (Given - Provider: Deandre Licea RN) 0910 (Given - Provider: Radha Eduardo RN) 90 mg, Oral, EVERY 12 HOURS, First dose on Fri02/08/15 at 0800, Post - procedurally for CAR percutaneous coronary intervention (PCI). When using maintenance Brilinta dosing in conjunction with aspirin th erapy, the daily dose of aspirin should not exceed 100mg, Cardiac Post-procedure Continuous Medication Order 02/07/2015 02/08/2015 02/09/2015 0.9% sodium chloride infusion () 1614 (New Bag - Provider: Isabel Granados, FRANKLIN)2000 (Rate/Dose Verify - Provider: Gabriela Ngo RN) at 75 mL/hr, Intravenous, CONTINUOUS, IF PATIENT IS RECEIVING RENAL DIALYSIS, RN to reduce rate of 0.9 % sodium chloride IV solution to 10 mL /hour (TKO) to prevent fluid overload., Cardiac Post-procedu re, Starting Fri02/07/15 at 1615, Until Fri02/07/15 at 2214 nitroGLYCERIN 50 mg in D5W 250 mL (adult std) infusion (CANCELED) 1429 (New Bag - Provider: Svetlana Elaine RN - Comment: 03/03)1431 (ED Infusing on Admission/transfer - Provider: Svetlana Elaine RN)1540 (Handoff - Provider: Isabel Granados, FRANKLIN)1649 (Rate/Dose Change - Provider: Isabel Granados, FRANKLIN) 0.07-2 mcg/kg/min ? 89.4 kg (1.8774-53.64 mL/hr, rounded to 1.9-53.6 mL/hr), at 1.9-53.6 mL/hr, Intravenous, CONTINUOUS, Starting 6/16/15 at 1425, For range orders: start at lowest dose ordered. Ti trate by 0.1 mcg/kg/min every 5 minutes to keep SBP less than 150 mmHg and/or chest pain relief. Notify prescriber if higher doses are required to achieve blood pressure goals., Initial Set-up verified by: BARNEY and NAVEENP PRN Medication Order 02/07/2015 02/08/2015 02/09/2015 acetaminophen (TYLENOL) tablet 325-650 mg (CANCELED) 1 712 (Given - Provider: Isabel Granados, FRANKLIN)2310 (Given - Provider: Sherley Daley, FRANKLIN) 325-650 mg, Oral, EVERY 4 HOURS PRN, mil d pain, headaches, Starting 02/07/15 at 1601, Maximum acetaminophen dose from all sources = 75 mg/kg/day not to exceed 4 grams/day., Cardiac Post-procedure bivalirudin (ANGIOMAX) bolus from infusion pump 67.1 m g (COMPLETED) 1506 (Given - Provider: Madelaine Barroso RN) 67.1 mg (rounded from 67.05 mg = 0.75 mg /kg ? 89.4 kg), Intravenous, ONCE PRN, when verbally ordered by prescriber during the procedure., Starting 02/07/15 at 1442, For 1 dose, Nurse to administer d ose from existing infusion. If no infusi on bag or syringe for this order is available, contact pharmacist to re-enter medication order. , Cardiac Intra-procedure fentaNYL (SUBLIMAZE) injection 25-50 mcg (CANCELED) 15 08 (Given - Provider: Madelaine Barroso RN) 25-50 mcg, Intravenous, EVERY 2 MIN PRN, Starting 02/07/15 at 1442, moderate to severe pain, other, when verbally ordered by prescriber during the procedure., Doses can be exceeded under direct overs ight of the patient by physician., Cardiac Intra-procedure lidocaine 1 % injection 1-10 mL (COMPLETED) 1509 (Give n - Provider: Madelaine Barroso RN) 1-10 mL, Subcutaneous, ONCE PRN, For loc al anesthesia for groin puncture as verbally ordered by prescriber during the procedure., Starting 02/07/15 at 1442, For 1 dose, The provider administers the m edication. Dose may be into sm aller doses for administration., Cardiac Intra-procedure midazolam (VERSED) injection 0.5-2 mg (CANCELED) 1508 (Given - Provider: Madelaine Barroso RN) 0.5-2 mg, Intravenous, EVERY 2 MIN PRN, Starting 02/07/15 at 1442, other, when verbally ordered by prescriber during the procedure., Doses can be exceeded under direct oversight of the patient by physician., Cardiac Intra-procedure nitroglycerin (NITROSTAT) SL tablet 0.4 mg 0.4 mg, Sublingual, EVERY 5 MIN PRN, john st pain, Starting 02/07/15 at 1601, Maximum 3 doses in 15 minutes. Notify provider if no relief after 3 doses. Do NOT give nitroGLYCERIN SL IF patient has rece ived sildenafil (VIAGRA/REVATIO) within the last 8 hours, avanafil (STENDRA) within the last 8 hours, vardenafil (LEVITRA/STAXYN) within the last 18 hours, or tadalafil (CIALIS/ADCIRCA) within the last 36 hours. Inform provider if patient has taken one of these medications. If patient is still having acute angina requiring treatment, an alternative treatment option may be used such as: IV beta-chay (2.5 mg - 5 mg) metoprolol (LOPRESSOR) if ordered by a provider., Cardiac Post-procedure nitroGLYCERIN 50 mg in D5W 250 mL (adult std) infusion (CANCELED) 1431 (Rate/Dose Change - Provider: Madelaine Barroso RN)1500 (Rate/Dose Change - Provider: Madelaine Barroso RN) 0.07-2 mcg/kg/min ? 89.4 kg (1.8774-53.64 mL/hr, rounded to 1.9-53.6 mL/hr), at 1.9-53.6 mL/hr, Intravenous, CONTINUOUS PRN, when verbally ordered by prescriber during the procedure., Starting Tue 02/07 at 1442, Start at 0.07 to 0.15 mcg/k g/min. Titrate up by 0.1 to 0.2 mcg/kg/min every 5 minutes PRN as directed by the prescriber to a max of 2 mcg/kg/min, Cardiac Intra-procedure nitroglycerin Cmpd syr inj, 10ml 100-200 mcg (CANCELED ) 1509 (Given - Provider: Madelaine Barroso, [place]) 100-200 mcg, INTRACORONARY, EVERY 1 MIN PRN, when verbally ordered by prescriber during procedure, Starting Fri02/07/15 at 1442, Prescriber will infuse each dose, Cardiac Intra-procedure verapamil (ISOPTIN) injection 1-2.5 mg (COMPLETED) 144 9 (Given - Provider: Rylee De RN) 1-2.5 mg, INTRA-ARTERIAL, ONCE PRN, when verbally ordered by prescriber during procedure , Starting Fri02/07/15 at 1442, For 1 dose, For radial or brachial access., Cardiac Intra-procedure documented in this encounter Care Teams 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
--- OUTSIDE RECORDS SUMMARY | 2022-06-26 08:11 | XMS_ITS | Encounter Summary ---
:1950 Author Organization [facility] Address [address] [place] [id number] Care Team Providers Name Role Phone Joss Winchester MD Primary Care Provider Reason for Visit Rehab Therapy Cardiac Therapy (Routine) - Closed Specialty Diagnoses / Procedures Referred By Contact Refer red To Contact Cardiac Rehab / Diagnoses ST elevation myocardial infarction (STEMI), unspecified artery [facility] Procedures EVALUATION [address] [place] [address] [address] [place] [address] Phone: Fax: Referral ID Status Reason Start Date Expiration Date Visits V isits Requested Authorized [facility]- Closed 02/14/2015 02/21/2015 365 365 ([id number]) Encounter Details Date Type Department Care Team Description 02/15/2015 Hospital Encounter [facility] Deana Meneses APRN CNP NO INFO AVAILABLE 06/13/2022 Cardiac and Pulmonary 1, Cardiac Rehab Rehabilitation [address] [place] [address] Social History Tobacco Use Types [...] on filedocumented in this encounter Care Teams Marketing Database Coordinator Relationship Specialty Start Date End Date Joss Winchester MD PCP - General Internal Medicine 02/14/15 [place] [address] documented as of this encounter
--- OUTSIDE RECORDS SUMMARY | 2022-06-26 08:11 | XMS_ITS | Encounter Summary ---
:1950 Author Organization [place] Address [address] [place] [id number] Care Team Providers Name Role Phone Joss Winchester MD Primary Care Provider Reason for Visit Rehab Therapy Cardiac Therapy (Routine) - Closed Specialty Diagnoses / Procedures Referred By Contact Refer red To Contact Cardiac Rehab / Diagnoses ST elevation myocardial infarction (STEMI), unspecified artery [facility] C[facility] Procedures EVALUATION [address] [place] [address] [address] [place] [address] Phone: Fax: Referral ID Status Reason Start Date Expiration Date Visits V isits Requested Authorized [facility]- Closed 02/14/2015 02/21/[phone] ([id number]) Encounter Details Date Type Department Care Team Description 02/20/2015 Hospital Encounter [facility] Deana Meneses APRN CNP NO INFO AVAILABLE 06/13/2022 Cardiac and Pulmonary 2, [facility] [address] [place] [address] Social History Tobacco Use Types [...] on filedocumented in this encounter Care Teams Claims Specialist Relationship Specialty Start Date End Date Joss Winchester MD PCP - General Internal Medicine 02/14/15 [place] [address] documented as of this encounter
--- OUTSIDE RECORDS SUMMARY | 2022-06-26 08:11 | XMS_ITS | Encounter Summary ---
:1950 Author Organization [facility] Address [address] [place] [address]. [place] [address] Care Team Providers Name Role Phone Tesha Nowak Primary Care Provider Reason for Visit Reason Comments Abdominal Pain RUQ pain x 1 hour. c/o mild dyspnea after moving heavy object Encounter Details Date Type Department Care Team Description 09/12/2011 Emergency [facility] Natasha Cantu Re nal colic on right [facility] side [address] [place], [place] [id number] [facility] [phone] [place] [address] [id number] (Wo rk) Social History Tobacco Use Types Packs/Day Years Used Date Smoking Tobacco: Never Assessed Sex Assigned at Date Recorded Not on file documented as of this encounter Last Filed Vital Signs Vital Sign Reading Time Taken Comments Blood Pressure 126/87 09/12/2011 2:15 PM FINAL INSPECTOR Pulse 52 09/12/2011 2:15 PM FINAL INSPECTOR Temperature 36.4 ??C (97.6 ??F) 09/12/2011 12:21 PM FINAL INSPECTOR Respiratory Rate 18 09/12/2011 2:01 PM FINAL INSPECTOR Oxygen Saturation 97% 09/12/2011 2:15 PM FINAL INSPECTOR Inhaled Oxygen Concentration - - Weight - - Height - - Body Mass Index - - documented in this encounter Discharge Instructions Discharge InstructionsNatasha Cantu MD - 09/12/2011 2:08 PM CST Discharge Instructions Kidney Stones Kidney stones are a common problem that can cause a lot of pain but fortunately are usually not dangerous and can be generally treated with medicine at home. However, sometimes your condition may be worse than it seemed at first, or may get worse with time. You need to follow-up with your regular doctor within 3 days. Most kidney stones will pass on their own, but occasionally stones may need to be removed by an urologist. We will send you home with a urine strainer. Be sure to urinate into this, or urinate into a container and pour the urine through the fine filter to catch the kidney stone as it comes out. The stone will seem like a pebble or grain of sand. Be sure to save this in a zip-lock bag and take it to the doctor???s office with you. Return to the Emergency Department if: Your pain is not controlled. You are vomiting and can???t keep fluids or medications down. You develop fever (>101) You feel much more ill or develop new symptoms What can I do to help myself? Be sure to drink plenty of fluids Staying active is good, and may help the stone to pass. You may do whatever you feel up to doing without restrictions. Treatment: Non-steroidal anti-inflammatory drugs (NSAIDs). This includes prescription medicines like Toradol ?? and non-prescription medicines like ibuprofen (Advil??, Nuprin ??). These pain relievers are very effective for kidney stones. Narcotic pain pills. If you have been given a narcotic (such as codeine, hydrocodone, or oxycodone)do not drive for four hours after you have taken it. If the narcotic contains acetaminophen (Tylenol), do not take Tylenol with it. All narcotics will cause constipation, so eat a high fiber diet. Nausea medication. Nausea and vomiting are common with kidney stones, so your physician may send you home with medicine for this. Flomax (Tamsulosin). This medicine is sometimes used for men with prostate problems, but also can help kidney stones to pass. This medicine can lower blood pressure, and you may feel faint, especiallywhen you first stand up. Be sure to get up gradually, sit down if you feel faint, and avoid activitywhere feeling faint would be dangerous, such as climbing ladders. Remember that you can always come back to the Emergency Department if you are not able to see your regular doctor in the amount of time listed above, if you get any new symptoms, or if there is anything that worries you. L INSPECTOR documented in this encounter Medications at Time of Discharge Medication Sig Dispensed Refills Start Date End Date AMITRIPTYLINE HCL PO Take 25 mg by mouth 0 At Bedtime ASPIRIN ADULT LOW STRENGTH Take by mouth. 0 02/07/2015 PO Atorvastatin Calcium Take 10 mg by mouth 0 02/09/2015 (LIPITOR PO) daily oxycodone-acetaminophen Take 1-2 tablets by 15 tablet 0 02/07/2015 (PERCOCET) 5-325 MG per mouth every 4 hours tablet as needed for pain. SIMVASTATIN PO Take by mouth. 0 2014 documented as of this encounter ED Notes Mojgan Estrada - 09/12/2011 12:57 PM CST Iv started and labs sent, zofran and toradol given, pt drove self in so we are starting with toradolfor pain and will do morphine if needed; pt is aware he cannot drive home if we use the morphine. Ptis more comfortable standing and moving so he is standing in the room and swaying back and forth. L INSPECTOR Natasha Cantu MD - 09/12/2011 12:42 PM CST History Chief Complaint: Abdominal Pain HPI Neptali Sullivan is a 60 year old male who presents with abdominal and flank pain. One hour ago the patient began having pain in his right posterior flank region. He was doing some heavy lifting prior to the pain and his pain began about 20 minutes afterwards. He states that sitting still makes his pain worse. He describes his pain as sharp. He also notes some shortness of breath. He did eat a hamburger prior to coming to the ER when the pain was already present. The patient has some chronic shoulder pain that he notes is less severe typically than the pain he is having currently. The patient denies any recent urinary symptoms, history of kidney stones, or recent fevers. He has been otherwise hea lthy without lightheadedness, dizziness, rash, headache, fevers, sore throat, cough, nausea, vomiting, chest pain, diarrhea, constipation, or other significant physical symptoms. Allergies: No Known Allergies Medications: Lipitor Amitriptyline Aspirin Simvastatin Past Medical History: Elevated cholesterol HI, old Past Surgical History: No past surgical history on file. Family / Social History: No family history on file. Social History: The patient is with two children. He is a non-smoker, and does not use alcohol regularly. Review of Systems Constitutional: Negative for fever and chills. HENT: Negative for facial swelling. Respiratory: Negative for shortness of breath. Cardiovascular: Negative for chest pain and leg swelling. Gastrointestinal: Positive for abdominal pain. Skin: Negative for rash. Neurological: Negative for weakness. All other systems reviewed and are negative. Physical Exam First Vitals: BP: 154/96 mmHg Heart Rate: 61 Temp: 97.6 ??F (36.4 ??C) Resp: 20 SpO2: 99 % Physical Exam Constitutional: He is oriented to person, place, and time. He is cooperative. HENT: Right Ear: External ear normal. Left Ear: External ear normal. Nose: Nose normal. Mouth/Throat: Uvula is midline, oropharynx is clear and moist and mucous membranes are normal. No posterior oropharyngeal edema or posterior oropharyngeal erythema. Eyes: Conjunctivae, EOM and lids are normal. Pupils are equal, round, and reactive to light. Neck: Trachea normal and normal range of motion. Neck supple. Cardiovascular: Normal rate, regular rhythm, normal heart sounds and intact distal pulses. Pulmonary/Chest: Effort normal and breath sounds normal. He has no wheezes. He has no rales. Abdominal: Soft. Bowel sounds are normal. He has no rebound and no guarding. Mild right flank tenderness. Musculoskeletal: Normal range of motion. No tenderness, no edema Lymphadenopathy: He has no cervical adenopathy. Neurological: He is alert and oriented to person, place, and time. He has normal strength. No cranial nerve deficit or sensory deficit. Skin: Skin is dry. No rash noted. Psychiatric: He has a normal mood and affect. Emergency Department Course Imaging: CT Abdomen: 1. 0.2 cm stone within the bladder likely a recently passed right urinary tract stone. Mild residual hydronephrosis is present involving the right kidney along with mild right hydroureter. 2. No additional urinary tract stones are evident bilaterally. 3. Left hepatic lobe cyst. Reading per Radiology. Laboratory: CMP: Glucose: 110 High (o/w WNL Creatinine: 1.19) D dimer: 0.2 CBC: all WNL (WBC: 6.2, Hgb: 14.7, Platelet count: 223) UA: Blood: Moderate, Protein: 10, Mucous: Present, Ketone: 5, Mucous: Present (o/w negative) Interventions: 0.9% Sodium Chloride IV solution 1000 mL Bolus x 2 Morphine Injection 4 mg IV Zofran 4 mg IV Toradol IV 30 mg Emergency Department Course: The patient was seen and examined. Plan of care discussed. 2:06 PM The patient's pain is improved. CT scan obtained. Results as above. Findings discussed with patient. Rechecked the patient, findings and plan explained to the patient. Patient discharged home, status improved, with instructions regarding supportive care, medications, and reasons to return as well as the importance of close follow-up was reviewed. Impression & Plan Medical Decision Making: The patient presented with unilateral flank and abdominal pain consistent with renal colic. CT confirms a ureteral stone. Pain is controlled with interventions in the Emergency Department. There is no fever or evidence of a urinary tract infection. The patient will be discharged with vicodin and Ibuprofen for pain. Return if increasing pain, vomiting or fever. Strain urine. Follow up with family doctor within one week. Diagnosis: 1. Right Renal Colic. Luda Kay 09/12/2011 [facility] I, Luda Kay, am serving as a scribe at 12:42 PM on 09/12/2011 to document services personally performed by Natasha Cantu MD, based on my observations and the provider's statements to me. Natasha Cantu MD 09/12/11 1700 L INSPECTOR Dustin Oconnor RN - 09/12/2011 12:24 PM CST Patients ABC's are intact and is AOx3 at this time. L INSPECTOR documented in this encounter Plan of Treatment Not on filedocumented as of this encounter Procedures Procedure Name Priority Date/Time Associated Comments Diagnosis CT ABDOMEN PELVIS W/O STAT 09/12/2011 1:52 PM Results for this CONTRAST FINAL INSPECTOR procedure are i n the results section. CBC WITH PLATELETS & STAT 09/12/2011 12:50 Res ults for this DIFFERENTIAL PM FINAL INSPECTOR procedure are i n the results section. D DIMER QUANTITATIVE STAT 09/12/2011 12:50 Res ults for this PM FINAL INSPECTOR procedure are i n the results section. COMPREHENSIVE STAT 09/12/2011 12:50 Results fo r this METABOLIC PANEL PM FINAL INSPECTOR procedure ar e in the results section. ROUTINE UA WITH Routine 09/12/2011 12:25 Results for this MICROSCOPIC PM FINAL INSPECTOR procedure are i n the results section. documented in this encounter Results CT Abdomen pelvis w/o contrast (09/12/2011 1:52 PM FINAL INSPECTOR) Anatomical Region Laterality Modality Abdomen/Pelvis, SUBRAD CT BODY, UMP CT ABDOMEN PELVIS Computed Tomography Specimen (Source) Anatomical Collection Method Collection Time Re ceived Time Location / / Volume Laterality 09/12/2011 1:52 PM FINAL INSPECTOR Impressions 09/12/2011 2:[address] ABDOMEN/PELVIS WITHOUT CONTRAST ??Sep 12, 2011 1:52 PM HISTORY: Right flank pain. TECHNIQUE: Axial images are obtained fro m the lung bases to the symphysis without oral or IV contrast. C oronal reformatted images are also generated. FINDINGS: Dependent atelectasis is noted at the lung bases. Abdomen: Mild right hydronephrosis and h ydroureter is present. A small 0.2 cm stone is present within the bladd er likely a recently passed right kidney stone. No other urinary tra ct stones are evident bilaterally. A cyst is present in the left hepatic lo be measuring 2.5 cm on image 17 of series 2. The upper abdominal orga ns are otherwise within normal limits allowing for the noncontrast tech nique. No enlarged lymph nodes. The bowel is normal in caliber wi thout obstruction. No evidence of diverticulitis. Appendix is not visua lized. Pelvis: The bladder and rectum are other nix unremarkable. Prostate gland is enlarged causing mild mass effe ct upon the bladder base. No enlarged pelvic lymph nodes. There is no free pelvic fluid. Bone window examination demonstrates degenera tive spine changes. No aggressive-appearing bone lesions are pr esent. IMPRESSION: 1. 0.2 cm stone within the bladder likel y a recently passed right urinary tract stone. Mild residual hydro nephrosis is present involving the right kidney along with mild right h ydroureter. 2. No additional urinary tract stones ar e evident bilaterally. 3. Left hepatic lobe cyst. Natasha Cantu MD IMG CT ORDERABLES D dimer quantitative (09/12/2011 12:50 PM FINAL INSPECTOR) P athologist Signature D Dimer 0.2 0.0 - 0.50 [facility] ug/ml [facility] Specimen Anatomical Collection Method Collection Time Receive d Time (Source) Location / / Volume Laterality Blood specimen 09/12/2011 12:50 2 (specimen) PM FINAL INSPECTOR 12:59 PM FINAL INSPECTOR Natasha Cantu MD LAB - BLOOD ORDERABLES Performing Organization Address City/State/ZIP Code [facility] e Number [place] [address] [address] [place] [address] [facility] (ABNORMAL) Comprehensive metabolic panel (09/12/2011 12:50 PM FINAL INSPECTOR) Analysis Performed At Patho logist Time Signature Sodium 139 133 - 144 [place] mmol/L [facility] Potassium 4.1 3.4 - 5.3 [place] mmol/L [facility] Chloride 103 94 - 109 [place] mmol/L [facility] Carbon Dioxide 28 20 - 32 [place] mmol/L [facility] Anion Gap 9 6 - 17 [place] mmol/L [facility] Glucose 110 (H) 60 - 99 [place] mg/dL [facility] Urea Nitrogen 16 7 - 30 [place] mg/dL [facility] Creatinine 1.19 0.66 - [facility] 1.25 mg/dL [facility] GFR Estimate 62 >60 [place] mL/min/[address] [place] [address] LAB GFR Estimate If 75 >60 [place] Black mL/min/1.[address] [place] [address] LAB Calcium 9.3 8.5 - 10.4 [place] mg/dL [facility] Bilirubin Total 0.9 0.2 - 1.3 [place] mg/dL [facility] Albumin 4.4 3.3 - 4.9 [place] g/dL [facility] Protein Total 7.0 6.8 - 8.8 [place] g/dL [facility] Alkaline 70 40 - 150 [place] Phosphatase U/L [facility] ALT 24 0 - 70 U/L [facility] AST 23 0 - 55 U/L [facility] Specimen Anatomical Collection Method Collection Time Receive d Time (Source) Location / / Volume Laterality Blood specimen 09/12/2011 12:50 2 (specimen) PM FINAL INSPECTOR 12:59 PM FINAL INSPECTOR Natasha Cantu MD LAB - BLOOD ORDERABLES Performing Organization Address City/State/ZIP Code Phon e Number [facility] [address], [place] [address] [facility] CBC with platelets differential (09/12/2011 12:50 PM FINAL INSPECTOR) [facility] Method Time Signature WBC 6.2 4.0 - [place] 11.0 [facility] 109/[facility] RBC Count 4.80 4.4 - 5.9 [place] 10e12/L [facility] Hemoglobin 14.7 13.3 - [place] 17.7 g/dL [facility] Hematocrit 42.7 40.0 - [place] 53.0 % [facility] MCV 89 78 - 100 [place] fl [facility] MCH 30.6 26.5 - [facility] 33.0 pg [facility] MCHC 34.4 31.5 - [place] 36.5 g/dL [facility] RDW 14.2 10.0 - [place] 15.0 % [facility] Platelet Count 223 150 - 450 [place] 10e9/L [facility] Diff Method Automated [facility] % Neutrophils 62.4 40 - 75 % [facility] % Lymphocytes 26.6 20 - 48 % [facility] % Monocytes 7.9 0 - 12 % [facility] % Eosinophils 2.6 0 - 6 % [facility] % Basophils 0.3 0 - 2 % [facility] % Immature 0.2 0 - 0.4 % [place] Granulocytes [facility] Absolute 3.9 1.6 - 8.3 [place] Neutrophil 10e9/L [facility] Absolute 1.6 0.8 - 5.3 [place] Lymphocytes 10e9/L [facility] Absolute 0.5 0.0 - 1.3 [place] Monocytes 10e9/L [facility] Absolute 0.2 0.0 - 0.7 [place] Eosinophils 10e9/L [facility] Absolute 0.0 0.0 - 0.2 [place] Basophils 10e9/L [facility] Abs Immature 0.0 0 - 0.03 [place] Granulocytes 10e9/L [facility] Specimen Anatomical Collection Method Collection Time Receive d Time (Source) Location / / Volume Laterality Blood specimen 09/12/2011 12:50 2 (specimen) PM FINAL INSPECTOR 12:59 PM FINAL INSPECTOR Natasha Cantu MD LAB - BLOOD ORDERABLES Performing Organization Address City/State/ZIP Code Phon e Number [facility] [address] [place] [address] [facility] (ABNORMAL) Routine UA with microscopic (09/12/2011 12:25 PM FINAL INSPECTOR) [facility] gist Method Time Signature Color Urine Yellow [facility] Appearance Urine Clear [facility] Glucose Urine Negative NEG mg/dL [facility] Bilirubin Urine Negative NEG [facility] Ketones Urine 5 (A) NEG mg/dL [facility] Specific Embudo 1.025 1.003 - [place] Urine 1.035 [facility] Blood Urine Moderate (A) NEG [facility] pH Urine 5.5 5.0 - 7.0 [place] pH [facility] Protein Albumin 10 (A) NEG mg/dL [facility] Urobilinogen 2.0 0.0 - 2.0 [place] mg/dL mg/dL [facility] Nitrite Urine Negative NEG [facility] Leukocyte Negative NEG [place] Esterase Urine [facility] Source Midstream [place] Urine [facility] WBC Urine <1 0 - 2 [facility] RBC Urine >182 (H) 0 - 2 [facility] Squamous <1 0 - 1 [place] Epithelial /HPF /HPF [facility] Mucous Urine Present (A) NEG /LPF [facility] Specimen Anatomical Collection Method Collection Time Receive d Time (Source) Location / / Volume Laterality Urine specimen URINE SPECIMEN 09/12/2011 12:25 012 (specimen) OBTAINED BY CLEAN PM FINAL INSPECTOR 12:[address] CATCH PROCEDURE / Unknown Natasha Cantu MD LAB - URINE ORDERABLES Performing Organization Address City/State/ZIP Code Phon e Number [facility] [address] [place] [address] [facility] documented in this encounter Visit Diagnoses Diagnosis Renal colic on right side Renal colic documented in this encounter Administered Medications Inactive Administered Medications - up to 3 most recent administrations Medication Order MAR Action Action Date Dose Rate Site ketorolac (TORADOL) injection 30 Given 09/12/2011 12:56 PM FINAL INSPECTOR 3 0 mg mg 30 mg, Intravenous, ONCE, On Nan 09/12/11 at 1245, For 1 dose, Do not give within 6 hours of Ibuprofen. ondansetron (ZOFRAN) injection 4 mg Given 09/12/2011 12:56 PM FINAL INSPECTOR 4 mg 4 mg, Intravenous, EVERY 30 MIN PRN, nausea, vomiting, Administer over 2-5 Minutes, Starting on Nan 09/12/11 at 1242, For 3 doses, May repeat in 30 minutes as needed, up to 3 doses. sodium chloride 0.9 % BOLUS New Bag 09/12/2011 12:52 PM FINAL INSPECTOR 1, 000 mLs 1000 mL/hr 1,000 mL Intravenous, 1,000 mL, ONCE, at 1,000 mL/hr, Administer over 1 Hours, On Nan 09/12/11 at 1245, For 1 dose documented in this encounter Active and Recently Administered Medications Times are shown in FINAL INSPECTOR. Scheduled Medication Order 09/10/2011 09/11/2011 09/12/2011 ketorolac (TORADOL) injection 30 mg (COMPLETED) 1256 (Given - Provider: Mojgan Estrada) 30 mg, Intravenous, ONCE, Nan 09/12/11 at 1245, For 1 dose, Do not give within 6 hours of Ibuprofen. sodium chloride 0.9 % BOLUS 1,000 mL (CANCELED) 1252 (New Bag - Provider: Mojgan Estrada) Intravenous, 1,000 mL, ONCE, at 1,000 mL /hr, for 1 Hours, Nan 09/12/11 at 1245, For 1 dose PRN Medication Order 09/10/2011 09/11/2011 09/12/2011 ondansetron (ZOFRAN) injection 4 mg (CANCELED) 1256 (Given - Provider: Mojgan Estrada) 4 mg, Intravenous, EVERY 30 MIN PRN, kit sea, vomiting, for 2 Minutes, Starting Nan 09/12/11 at 1242, For 3 doses, May repeat in 30 minutes as needed, up to 3 doses. documented in this encounter Care Teams Choir Accompanist Relationship Specialty Start Date End Date Tesha Nowak PCP - General 09/12/11 02/13/15 [facility] [address] [place] [address] documented as of this encounter
--- OUTSIDE RECORDS SUMMARY | 2022-06-26 08:11 | XMS_ITS | Encounter Summary ---
:1950 Author Organization [place] Address [address] [place] [address] Care Team Providers Name Role Phone Joss Winchester MD Primary Care Provider Reason for Visit Rehab Therapy Cardiac Therapy (Routine) - Closed Specialty Diagnoses / Procedures Referred By Contact Refer red To Contact Cardiac Rehab / Diagnoses ST elevation myocardial infarction (STEMI), unspecified artery [facility] CARDIAC REHAB Procedures EVALUATION [address] [place] [address] [address] [place] [address] Phone: Fax: Referral ID Status Reason Start Date Expiration Date Visits V isits Requested Authorized [facility] Closed 02/14/2015 02/21/[phone] [id number]) Encounter Details Date Type Department Care Team Description 02/14/2015 [facility] Deana Silva APRN CNP NO INFO AVAILABLE 06/13/2022 ST elevation Encounter Cardiac and Pulmonary 2, Rh Cardiac Rehab myocardial Rehabilitation infarction [place] (STEMI), [address] [facility] unspecified artery [address] (H) (Primary Dx) [place] [address] Social History Tobacco Use Types Packs/Day Years Used Date Smoking Tobacco: Never Assessed Sex Assigned at Date Recorded Not on file documented as of this encounter Last Filed Vital Signs Vital Sign Reading Time Taken Comments Blood Pressure - - Pulse - - Temperature - - Respiratory Rate - - Oxygen Saturation - - Inhaled Oxygen Concentration - - Weight 87.3 kg (192 lb 6.4 oz) 02/14/2015 10:00 AM CDT Height 175.3 cm (5' 9) 02/14/2015 10:00 AM CDT Body Mass Index 28.41 02/14/2015 10:00 AM CDT documented in this encounter Medications [...] documented as of this encounter Progress Notes Sherley Leija - 02/14/2015 12:55 PM CDT OUTPATIENT CARDIAC REHAB INITIAL EVALUATION / INDIVIDUALIZED TREATMENT PLAN Certified through this date: 03/15/15 Name: Neptali Sullivan Date of : 1950 Date of Treatment: 02/07/15 Age: [age] year old Gender: male Treatment Diagnosis: Myocardial Infarction Secondary Treatment Diagnosis: Stent Hospital Location: [facility] Discharge Date: 02/09/15 Outpatient CR Start Date: 02/14/15 Primary Physician: Dr. Winchester Surgeon: Blanket Cutting Machine Operator: Dr. Reza Ejection Fraction: 45% [...] progression of exercise and risk factor education. The patient's history and clinical status including hemodynamics and ECG were evaluated. The patientwas assessed to be stable and appropriate to begin exercise. The patient's functional capacity and exercise prescription were determined by the completion of the 6 minute walk test. See results below. The patient was oriented to the program and equipment. Risk factor profile was completed. Goals and objectives were discussed. CV response was WNL. NO symptoms, complaints or pain were reported. Good prognosis for reaching above goals. Skilled therapy is necessary in order to monitor CV response to exercise, to provide education on risk factors and behavior change counseling needed to achieve patient's goals. Plan to progress 30-40 minutes of exercise prior to discharge from cardiac rehab. Initial THR of 20-30 beats above RHR; Effort rating of 4-6. Initiate muscle conditioning as appropriate. Provide risk factor education and behavior change counseling. I have established, reviewed and made necessary changes to the individualized treatment plan and exercise prescription for this patient. Physician Name (Printed): Date: Time: Physician Signature: X Patient and Program Goals MET Goal: 5-6 Current MET Level: 3.3 Goal Pt desires to lose 1-2# per week to reach goal weight of 182#. Target Date 04/25/15 Date Met Progress Towards Goal Goal Pt desires to increase endurance and stamina to return to walking 3-4 miles a day without symptoms. 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 No Have you fallen and had an injury in the past year? No Timed up and go score if applicable: Referral initiated to physical therapy: No Comment: RISK FACTORS Hypertension Hypertension: No Currently taking [...] not want to use them right now. Stress / Psychosocial Assessment Psycho-social Assessment: Initial Patient admits to stress: Yes Current level of stress: Moderate Coping skills: Patient Health Questionnaire-9 (PHQ-9) for Depression: 5-9 Minimal symptoms 10-14 Minor depression 15-19 Major depression, moderately severe > 20 Major depression, severe Completed PHQ-9 Score: 8 [facility] Function and Health Status Survey: A [...] goal: Assessment for depression using PhQ-9 and [facility] questionnaires. Maximize coping skills and develop [...] a lawsuit with his employer and contemplating jail. He does not have any coping mechanisms he uses for stress at this time, and denies need for any at this point in time. Nutrition Assessment Dietary assessment: Initial Assessment Rate Your Plate - Heart Survey: Scores range from 24 to 72. The higher the score the healthier the eating choices. 52 Overweight / Obesity: Yes Age: 64 Weight: 87.272 kg (192 lb 6.4 oz) Height: 175.3 cm (5' 9) BMI (Calculated): 28.47 Goal weight: 82.645 kg (182 lb 3.2 [...] and is actively trying to follow the mediterannean diet. He had done this s/p stent in 1998, butfell off of it after awhile because it got old. Cholesterol Cholesterol: Labs Available Date: 02/08/15 Total Cholesterol: 201 HDL: 24 LDL: 112 Triglycerides: 325 Target outcome goal: Total cholesterol <150, HDL >40 M >50 F, LDL < 70, Trig < 150: Outcome Not Achieved Comments: Diabetes Management Diabetes Management: NA Hb A1C: Pre-Exercise Blood Sugar: Target outcome goal: Hb A1C < 7: Comments: Inactivity / Aerobic Exercise Assessment Activity assessment: Initial Inactivity: Meets Physical Activity Goal Physical activity days per week: 5 Aerobic exercise days per week: 2 Aerobic exercise minutes per day: 60 Stages of change (Physical Activity): Maintenance Stages of change (Aerobic Activity): Preparation Target outcome goal: Aerobic Activity 30 minutes, 5 days per week = 150 minutes per week: Outcome Not Achieved Comments: 02/14: 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 He is currently on light duty becauseof his shoulders, but he still walks 2-3 miles at work each night. He sometimes walks at home outside for exercise, but this is not always regular. INDIVIDUALIZED TREATMENT PLAN Monitored sessions scheduled: 18 Monitored sessions attended: 1 Exercise Assessment Initial 6 Minute Walk Distance: 1572 ft 6 Minute Walk Predicted (Male): 1762.99 6 Minute Walk Predicted (Female): 1511.51 Met Level Achieved: 3.3 Resting HR: 75 bpm Exercise HR: 100 bpm Post Exercise HR: 78 bpm Resting BP: 110/70 mmHg Exercise BP: 130/76 mmHg Post Exercise BP: 98/68 mmHg Pre SpO2: While Exercising SpO2: Post SpO2: Pre BG: Post BG: RPE: 2 ECG Rhythm: Normal sinus rhythm Ectopy: None [...] with exercise: No Resistance Training: No Comments: Current Home Exercise Type of Exercise: Walking Frequency (days per week): 1-2 Duration (minutes per session): 60 Recommended Home Exercise Prescription Type of Exercise: Walking Frequency (days per week): on days not at rehab Duration (minutes per session): 15-30 min RPE recommended: Other (see comments) (4-6 OMNI) Recommended THR: none given Comments/Exercise Plan: Learning Assessment Learner: Patient Primary Language: Micronesian Preferred Learning Style: Reading Barriers to Learning: No barriers noted Patient Education Education Recommended: Anatomy and Physiology of the Heart, Medication Overview, Weight Loss documented in this encounter Plan of Treatment Scheduled Referrals Name Type Priority Associated Diagnoses Order [facility] Cardiac Rehab Referral Referral Routine ST elevation myoca rdial Ordered: 02/09/2015 infarction (STEMI), unspecified artery (H) documented as of this encounter Visit Diagnoses Diagnosis ST elevation myocardial infarction (STEM I), unspecified artery (H) - Primary documented in this encounter Care Teams Wind Field Manager Relationship Specialty Start Date End Date Joss Winchester MD PCP - General Internal Medicine 02/14/15 [facility] [place] [id number] documented as of this encounter
--- OUTSIDE RECORDS SUMMARY | 2022-06-26 08:13 | XMS_ITS | Encounter Summary ---
:1950 Author Organization [facility] Address [address] [place] [address] Support Name Relationship Address Phone RAFAELA MCNAMARA Unavailable [address] [facility] [place] [address] RAFAELA MCNAMARA Unavailable [address] [facility] [place] [address] Insurance Providers: All historical and current Section Date Range: From patient's date of to the date document was created.This section includes the names of all active insurance providers for the patient. Insurance Type of Plan Start of End of Group Member Insurance Policy P atrodriguez's Provider Coverage Name Policy Policy Number ID Provider's Cameron's Relationship Coverage Coverage Telephone Name to Policy Number Cameron MEDICARE MEDICARE PART Mar 25, PART B [id number] NARDA NICOLE ATRODRIGUEZ (WNR) (M) B 2014 [id number] [place] MEDICARE MEDICARE PART Sep 25, PART A [id number] NARDA NICOLE ATIENT (WNR) (M) A 2014 [id number] [phone] MOTHY Selected Encounter This section includes the information on record at NE for the Encounter. Date/Time Encounter Type Encounter Description Reason Provider Source Feb 19, 2022 08:04 Outpatient Encounter PRIMARY CARE/MEDICINE AM [facility] Encounter Template Text not used by NE Plan of Treatment: Future Appointments (+ 6 months) and Future Tests (+/- 45 days) The Plan of Treatment section includes future care activities for the patient from all [place] treatmentfacilities. This section includes future appointments and future orders which are active, pending orscheduled.Future Appointments This section includes appointments that were scheduled to occur 6 months from the date of the Encounter, up to a maximum of 20 appointments. The data comes from all [place] treatment facilities. Appointment Date/Time Appointment Type Appointment Facili ty Name Mar 06, 2022 12:30 PM AMBULATORY - NONE [facility] Apr 18, 2022 01:58 PM AMBULATORY - NONE [facility] Active, Pending, and Scheduled Orders This section includes a listing of several types of active, pending, and scheduled orders, including clinic medications orders, diagnostic test orders, procedure orders and consult orders; where the start date of the order is 45 days before the date of the Encounter or 45 days after the date of the Encounter. The data comes from all [facility] facilities. Test Date/Time Test Type Test Details Facility Name Feb 19, 2022 12:00 AM Laboratory - COMPREHENSIVE METABOLIC [facility] Chemistry Order PANEL+MG PLASMA SP ONCE Feb 19, 2022 12:00 AM Laboratory - CBC BLOOD SP [facility] Chemistry Order Feb 19, 2022 12:00 AM Laboratory - HEMOGLOBIN A1C BLOOD SP [facility] Chemistry Order Feb 19, 2022 12:00 AM Laboratory - LIPID PANEL,NON-FASTING [facility] Chemistry Order PLASMA SP Feb 19, 2022 12:00 AM Laboratory - DRUG SCREEN PANEL,URINE [facility] Chemistry Order URINE WC Social History: Smoking Status (Most current) and Tobacco Use (All prior to encounter date) This section includes the most current, and the historical, smoking and tobacco-related health factors from the NE facility where the Encounter took place.Current Smoking Status This section includes the most current smoking, or tobacco-related health factor, from the NE facility where the Encounter took place. Date/Time Current Smoking Status Comment Facility Jul 28, 2019 10:43 AM NE-TOBACCO QUIT 15 YRS OR MORE [facility] Tobacco Use History This section includes a history of the smoking, or tobacco- related health factors, that were collected on or before the date of the Encounter. The data comes from the NE facility where the Encounter took place. Date/Time Smoking Status/Tobacco Use Comment [facility] it Jul 28, 2019 10:43 AM NE-TOBACCO QUIT 15 YRS OR MORE [facility] Nov 20, 2017 12:45 PM FORMER TOBACCO USE >1Y <7Y [facility] December 27, 2014 08:09 AM CURRENT TOBACCO USER [facility] January 21, 2014 02:54 PM CURRENT TOBACCO USER [facility] Sep 07, 2007 10:58 AM FORMER TOBACCO USER 7Y OR GREATER [facility] Encounter Notes: All associated encounter notes This section contains the clinical notes associated to the Encounter. Date/Time Encounter Note(s) Provider Source Feb 19, 2022 08:04 AM REPORT OF CONTACT: CATHERINE FREEDMAN [facility] LOCAL TITLE: PATIENT CONTACT NOTE STANDARD TITLE: REPORT OF CONTACT DATE OF NOTE: FEB 19, 2022@08:04 ENTRY DATE: FEB 19, 2022@08:04:18 AUTHOR: CATHERINE FREEDMAN EXP COSIGNER: URGENCY: STATUS: COMPLETED Received tramadol refill request. Patient will need to be seen in person for additional refills. Has not been seen in person in this clinic since 2019 and is 4 yea rs overdue for UDS. RTC ordered w/ labs /es/ Catherine Freedman MD Physician Signed: 02/19/2022 08:07 Receipt Acknowledged By: * AWAITING SIGNATURE * AQSIM CROWE
--- OUTSIDE RECORDS SUMMARY | 2022-06-26 08:13 | XMS_ITS | Clinical Summary ---
:1950 Author Organization [facility] [place] [address] Care Team Providers Name Role Phone Pcp, No Primary Care Provider Unavailable Allergies No known active allergies Medications Medication Sig Dispensed Refills Start Date End Date Status AMITRIPTYLINE 50 MG TAB Take 2 tablets 60 2 02/12/2008 Active daily at bedtime atorvastatin (LIPITOR) Take 1 tablet by 0 10/26/2015 Active 80 mg tablet mouth once daily. ASCORBIC ACID, VITAMIN Take by mouth. 0 Active C, ORALIndications: Indications: take as directed daily take as directed daily cholecalciferol Take 5,000 Units 0 Active (VITAMIN D) 1,000 unit by mouth once capsule daily. hydrOXYzine pamoate Take 1 capsule 80 capsule 0 09/17/2016 Active (VISTARIL) 25 mg by mouth every 6 capsuleIndications: hours if needed. Chronic left shoulder pain docusate (COLACE) 100 Take 1 capsule 20 capsule 0 09/17/2016 Active mg capsuleIndications: by mouth 2 times Chronic left shoulder daily if needed pain for Constipation. ondansetron (ZOFRAN Place 1 tablet 20 tablet 0 09/17/2016 Active ODT) 4 mg on the tongue disintegrating every 8 hours if tabletIndications: needed for Chronic left shoulder Nausea/Vomiting. pain aspirin enteric coated Take 1 tablet by 100 tablet 0 7 Active (ECOTRIN) 325 mg mouth once daily tabletIndications: with a meal. Chronic left shoulder pain, Migraine with aura and without status migrainosus, not intractable HYDROmorphone Take 1-2 tablets 80 tablet 0 10/11/2016 Active (DILAUDID) 2 mg by mouth every 4 tabletIndications: hours if needed Chronic left shoulder for Pain pain HYDROmorphone Take 1 tablet by 60 tablet 0 11/04/2016 Active (DILAUDID) 2 mg mouth every 6 tabletIndications: hours if needed Chronic left shoulder for Pain pain HYDROmorphone Take one tablet 30 tablet 0 11/21/2016 Active (DILAUDID) 2 mg my mouth every tabletIndications: 12 hours as Aftercare following needed for pain. surgery of the musculoskeletal system carvedilol (COREG) 25 Take 25 mg by 0 08/01/2016 Active mg tablet mouth. Omeprazole 20 mg tablet Take 1 tablet by 0 0 Active mouth once daily before a meal. oxyCODONE (ROXICODONE) Take 1-2 tablets 20 tablet 0 09/03/2019 Active 5 mg immediate release by mouth every 6 tabletIndications: hours if needed Chronic right shoulder for Pain pain triamcinolone Apply topically 15 g 0 11/15/2019 Active (ARISTOCORT; KENALOG) to affected 0.1 % creamIndications: area(s) 3 times Psoriasis with pustules daily. clobetasol cream 0.05% Apply topically 30 g 1 01/06/2020 Active (TEMOVATE) 0.05 % to affected creamIndications: area(s) 2 times Pustular rash daily. cyclobenzaprine Take 1-2 tablets 20 tablet 0 01/06/2020 Active (FLEXERIL) 5 mg by mouth 3 times tabletIndications: daily. Acute neck pain Active Problems Problem Noted Date s/p left reverse total shoulder arthroplasty on [address] Draper 09/26/2016 Rotator cuff tear 09/16/2016 CAD (coronary artery disease) 09/16/2016 Overview: GA 1997 and 2014. Numerous stents placed in 2014. Mixed hyperlipidemia 09/01/2009 Unspecified essential hypertension 12/10/2005 ANISOCORIA 08/16/2004 GERD 08/07/2004 DISLOCATION, RECURRENT, SHOULDER 08/26/2001 MIGRAINE, CLASSICAL W/O INTRACTABLE MIGRAINE Complete tear of left rotator cuff Primary osteoarthritis of left shoulder Resolved Problems Problem Noted Date Resolved Date Left shoulder pain, s/p left shoulder revision rcr with 10/201409/16/2016 allograft matrix. 05/25/2014 By outside institution EUSTACHIAN TUBE DYSFUNCTION 08/09/2005 09/16/2016 UPPER RESPIRATORY INFECTION - ACUTE 08/09/200508/26 TENNIS ELBOW 08/07/2004 09/16/2016 Other and unspecified angina pectoris 03/13/2004 CERUMEN 01/13/2004 01/27/2004 BICEPS TENDON RUPTURE, RIGHT 01/03/2004 01/17/2004 SORE THROAT 11/18/2003 12/02/2003 SHOULDER PAIN 10/26/2003 09/16/2016 INFARCTION, MYOCARDIAL, OLD 09/16/2016 HYPERCHOLESTEROLEMIA, PURE 09/16/2016 Immunizations Name Administration Dates Next Due Influenza A (H1N1), Inactivated 08/11/2009, 06/25/2009 Influenza A (H1N1), Inactivated (Age 1208/11/2009 >=3 Years) Influenza Virus, Unspecified 07/14/2013, 06/12/2012, 011, 05/24/2010, 05/25/2009, 05/25/2007 Influenza, IIV3 (Age 6-35 mos) 08/11/2009 Influenza, IIV3 (Age >=3 years) 06/03/2012, 06/20/2011, 03/2010, 08/11/2009, 06/08/2007, 06/30/2006, 06/27/2005, 06/14/2004, 06/01/2003, 06/09/2002 Pneumococcal Poly,23-Valent 02/09/2015 (Pneumovax) Pneumococcal, Unspecified 12/18/2011 TD, UNSPECIFIED 08/25/2002 Tdap 05/05/2012 Zoster (Zostavax-ZVL, live) 12/27/2014 Family History Medical History Relation Name Comments Other Father emphysema. Other Mother hepatitis Relation Name Status Comments Father Mother Social History Tobacco Use Types Packs/Day Years Used Date Former Smoker Cigars Quit: 2004 Smokeless Tobacco: Never Used Alcohol Use Standard Drinks/Week Comments Yes 0 (1 standard drink = 0.6 oz pure alcoho l) very little Alcohol Habits Answer Date Recorded How often do you have a drink containing alcohol? Not asked How many drinks containing alcohol do you have on a Not aske d typical day when you are drinking? How often do you have six or more drinks on one occasion? No t asked Comment: very little 01/28/2010 Sex Assigned at Date Recorded Not on file Obstetrics History Last Filed Vital Signs Vital Sign Reading Time Taken Comments Blood Pressure 152/78 01/06/2020 11:54 AM CDT Pulse 61 01/06/2020 11:54 AM CDT Temperature 36.9 ??C (98.5 ??F) 09/19/2016 8:10 AM FLIGHT DATA TECHNICIAN Respiratory Rate 20 09/19/2016 8:10 AM FLIGHT DATA TECHNICIAN Oxygen Saturation 98% 01/06/2020 11:52 AM CDT Inhaled Oxygen Concentration - - Weight 95.4 kg (210 lb 6.4 oz) 01/06/2020 11:52 AM CDT Height 175 cm (5' 8.9) 09/03/2019 3:55 PM FLIGHT DATA TECHNICIAN Body Mass Index 31.16 09/03/2019 3:55 PM FLIGHT DATA TECHNICIAN Plan of Treatment Health Maintenance Due Date Last Done Comments COVID-19 vaccine series (#1) 04/04/1951 Hepatitis C screening for age 0210/05/1967 18-79 Colonoscopy through age 75 1994 Lipids for age 45-75 12/10/2011 12/09/2006, 09/03/2005, 05/16/2005, Additional history exists Medicare Wellness for age 65+ 2014 Zoster (shingles) series for age 0602/21/2015 12/27/2014 50+ (2 of 3) BMI (ht and wt on same day) for 09/03/2020 09/03/2019 age 18+ Depression screening for age 12+ 09/03/2020 09/03/2019 Influenza for age 65+ 04/25/2022 07/14/2013, 06/12/2012, 06/03/2012, Additional history exists Tetanus booster 05/05/2022 05/05/2012, 08/25/2002 Tdap Completed 05/05/2012 Pneumococcal series for age 65+ Completed 02/09/2015, 11/24 Medical Devices Implanted Type Area Tapper Operator Device Shelf Model / Identifier Expiration Serial / Date Lot Bearing Hum Od44-36 Comprehensive Std Arcomxl Pe - [id number] Left: [employer] [id number] / Implanted: Qty: 1 on 09/16/2016 by Jese Alcala III, MD at [facility] / [id number] Results Not on filefrom Last 3 Months Insurance Payer Benefit Plan / Subscriber ID Effective Dates Phone Addre ss Type Group WC WORKERS COMP WC SFM [id number] 2020-Presen [address] [place] [address] MEDICARE PART A MEDICARE PART A [id number] 2014-Present ATTN: CLAIMS - HB USE ONLY HB ONLY [address] [place] [address] MEDICARE - PB MEDICARE PB [id number] 2015-Present ATT N: CLAIMS USE ONLY ONLY [address] [place] [address] Advance Directives Latest Code Status on File Code Status Date Activated Date Inactivated Comments Full Code 09/16/2016 2:42 PM 09/19/2016 3:38 PM Code Status Discussion: Not Discussed Care Teams Nurse Quality Relationship Specialty Start Date End Date Pcp, No PCP - General 08/27/16 .
--- OUTSIDE RECORDS SUMMARY | 2022-06-26 08:13 | XMS_ITS | Encounter Summary ---
:1950 Author Organization [facility] Address [address] [place] [id number] Support Name Relationship Address Phone RAFAELA MCNAMARA Unavailable [address] [place] [address] RAFAELA MCNAMARA Unavailable [address] [place] [address] Insurance Providers: All historical and current Section Date Range: From patient's date of to the date document was created.This section includes the names of all active insurance providers for the patient. Insurance Type of Plan Start of End of Group Member Insurance Policy P atient's Provider Coverage Name Policy Policy Number ID Provider's Cameron's Relationship Coverage Coverage Telephone Name to Policy Number Cameron MEDICARE MEDICARE PART Mar 25, PART B [id number] NARDA NICOLE ATIENT (WNR) (M) B 2014 [id number] [phone] MOTHY MEDICARE MEDICARE PART Sep 25, PART A [id number] BONNIE,TI P ATIENT (WNR) (M) A 2014 [id number] [phone] MOTHY Selected Encounter This section includes the information on record at [place] for the Encounter. Date/Time Encounter Type Encounter Reason Provider Source Description Apr 18, 2022 01:58 Outpatient ADMIN PAT ACTIVTIES TERESE GUPTA PM Encounter (MASNONCT) L IHE Encounter Template Text not used by [place] Social History: Smoking Status (Most current) and Tobacco Use (All prior to encounter date) This section includes the most current, and the historical, smoking and tobacco-related health factors from the [place] facility where the Encounter took place.Current Smoking Status This section includes the most current smoking, or tobacco-related health factor, from the [place] facility where the Encounter took place. Date/Time Current Smoking Status [facility] Facility Jul 28, 2019 10:43 AM VA-TOBACCO QUIT 15 YRS OR MORE [facility] Tobacco Use History This section includes a history of the smoking, or tobacco- related health factors, that were collected on or before the date of the Encounter. The data comes from the [place] facility where the Encounter took place. Date/Time Smoking Status/Tobacco Use Comment Facil ity Jul 28, 2019 10:43 AM VA-TOBACCO QUIT 15 YRS OR MORE [facility] Nov 20, 2017 12:45 PM FORMER TOBACCO USE >1Y <7Y [facility] December 27, 2014 08:09 AM CURRENT TOBACCO USER [facility] January 21, 2014 02:54 PM CURRENT TOBACCO USER [facility] Sep 07, 2007 10:58 AM FORMER TOBACCO USER 7Y OR GREATER [facility] Encounter Notes: All associated encounter notes This section contains the clinical notes associated to the Encounter. Date/Time Encounter Note(s) Provider Source Apr 18, 2022 01:20 PM NONVA NOTE: DAYSI CASAS IS [facility] LOCAL TITLE: COMMUNITY CARE-CARLO SELF PRESENTIN G CARE COORD PLAN STANDARD TITLE: NONVA NOTE DATE OF NOTE: APR 18, 2022@13:20 ENTRY DATE: APR 18, 2022@14:00:42 AUTHOR: DAYSI CASAS EXP COSIGNER: URGENCY: STATUS: COMPLETED COMMUNITY CARE-CARLO SELF PRESENTING CARE CO ORD PLAN NOTE Has ADDENDA Emergency Notification Intake Date Presenting to the Facility: Mar Method of Contact: Notified from [facility] worklist Notification ID: [id number] [facility] Referral #: [facility] Name: Hospital: [facility] Address: City: [place] State: [place] Zip Code: Phone : [facility] Point of Contact: Name: Phone: Chief complaint: TIREDNESS Primary Diagnosis: Disposition Unknown at time of intake note entry POM Review /marci/ DYASI CASAS Table Cover Folder(AOD) Signed: 04/18/2022 14:02 Receipt Acknowledged By: 04/24/2022 15:58 /marci/ TERESE GUPTA RN [facility] 04/18/2022 ADDENDUM STATUS: COMPLETED VistA Imaging Scanned Document - Addendum. Urgent Care note, not in ED Updated ECR /marci/ TERESE GUPTA RN [facility] Signed: 04/24/2022 16:00 Receipt Acknowledged By: * AWAITING SIGNATURE * RADHA ANDRES
--- OUTSIDE RECORDS SUMMARY | 2022-06-26 08:13 | XMS_ITS | Continuity of Care Document ---
:1950 Author Organization [facility] Care Team Providers Name Role Phone [facility] Unavailable Unavailable Problems Combined list of problems from Department of Defense and [facility] Affairs facilities. It does not include entries that were removed or entered in error. 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 December 26, 2017 Entered By: GHADA BURNETT Comment: Statin intolerant. 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 [facility] lower limb Hernia Active Condition [place] [facility] Hypercholesterolemia * Active Condition [place] (ICD-9-CM 272.0) [facility]ension [facility] Liver cyst Active Condition Feb 22, [place] 2014 Entered [facility] By: GHADA BURNETT Comment: Found incidentally 01/2015 Migraine without aura Active Condition [facility] Migraines * (ICD-9-CM Active Condition [place] 346.90) [facility] Myalgia and myositis Active Condition [place] (ICD-9-CM 729.1) [facility] Routine General Active Condition [place] Medical Examination at [facility] a Health Care Facility * Tinnitus * (ICD-9-CM Active Condition [place] 388.30) [facility] Traumatic arthropathy Active Condition Jul, [place]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 [id number]) Medications Combined list of outpatient medications from Department of Defense and Veterans Affairs facilities. Medications provided include 1) outpatient medications from the last 15 months, and 2) patient-reported medications. Medication Details Route Status Patient Prescription Prescription Last Ordering Order Source Instructions Expires Number Dispense Provider Date Date ACETAMINOPH TAKE TWO ORALLY ACTIVE 08/28/2022 [id number] JAY PEREZ 08/28/ [place] EN 325MG TABLETS 2 ONTEL R 2021 [facility] EVERY 6 HOURS NEEDED FOR PAIN. *NOT TO EXCEED 4000MG IN 24 HOURS FROM ALL SOURCES* AMITRIPTYLI TAKE ONE ORALLY 02/16/2022 [id number] VALUSEBonny Draper 02/26/ [place] HCL 50MG TABLET 2 2020 [facility] AT BEDTIME ASCORBIC TAKE BY ORALLY ACTIVE DENG 12/17/ [place] ACID TAB MOUTH PASQUALE W 2011 [facility] EVERY HCS DAY ASPIRIN TAB TAKE 81 ORALLY ACTIVE AGUILA BURNETT 07/26/ [place] MG BY CHAEL A 2014 [facility] M[facility] EVERY DAY CARVEDILOL TAKE ONE ORALLY ACTIVE 08/28/2022 [id number] V ALUBonny LUNA 08/28/ [place] 25MG TAB TABLET 2 2021 [facility] TWICE A DAY FOR BLOOD PRESSURE CARVEDILOL TAKE ONE ORALLY DISCONT 06/13/2021 [id number] Bonny SANCHEZ 08/26/ [place] 25MG TAB TABLET INUE 1 2020 [facility] TWICE A DAY FOR BLOOD PRESSURE CHOLECALCIF TAKE ORALLY ACTIVE LEXLA 12/27/ [place] SUE 25MCG FIVE CHAEL A 2014 [facility] (1,000UNIT) TABLETS HCS TAB BY MOUTH EVERY DAY OMEPRAZOLE TAKE ONE ORALLY 02/24/2022 [id number] B ORTHWICK 02/25/ [place] 20MG CAP,EC CAPSULE 2 ,ILIA 2020 [facility] EVERY DAY ON AN EMPTY STOMACH, AT LEAST 30 MINUTES PRIOR TO A MEAL FOR HEARTBUR N SIMVASTATIN TAKE ORALLY ACTIVE 08/28/2022 [id number] MARCOS PRYOR,Jeremy 08/28/ [place] 40MG TAB ONE-HALF 2 AUREEN B 2021 [facility] TABLET [facility]CS BY MOUTH AT BEDTIME TO LOWER CHOLESTE ROL AND REDUCE RISK OF HEART ATTACK AND STROKE SIMVASTATIN TAKE ORALLY DISCONT 08/09/2021 [id number] Jeremy JNOES,M 08/09/ [place] 40MG TAB ONE-HALF INUE 1 AUREEN B 2019 [facility] TABLET [facility]CS BY MOUTH AT BEDTIME TO LOWER CHOLESTE ROL AND REDUCE RISK OF HEART ATTACK AND STROKE TRAMADOL TAKE 1-2 ORALLY DISCONT 10/17/2021 [id number] RONIT RTHWICK 04/30/ [place] HCL 50MG TABS BY INUE 2 ,2020 [place] [facility] A TAB MOUTH L HCS THREE TIMES A DAY NEEDED FOR SHOULDER AND HIP PAIN TRAMADOL TAKE 1-2 ORALLY DISCONT 05/16/2021 [id number] [place] JIMBO MCLAUGHLIN 11/23/ [place] HCL 50MG TABS BY INUE 1 BERLY W 2020 [facility]TH [facility] THREE TIMES A DAY NEEDED FOR SHOULDER AND HIP PAIN TRAMADOL TAKE 1-2 ORALLY 03/14/2022 [id number] BOR THWICK 09/11/ [place] HCL 50MG TABS BY 2 ,2021 [facility] A TAB MOUTH L HCS THREE TIMES A DAY NEEDED FOR SHOULDER AND HIP PAIN Immunizations Combined list of available immunizations from the Department of Defense and Veterans Affairs facilities. Immunization Series Date Administered Site Reaction Lot CVX Drug St at Comments Source Given By Number Code Drawer In Hand INFLUENZA, complet [place] HIGH DOSE 2018 ed [facility] ZOSTER LIVE complet merck , [place] 2014 ed [id number], [facility] 08/17/15 [facility] INFLUENZA, complet [place] SEASONAL, 2013 ed [facility] INJECTABLE [facility] INFLUENZA, complet [place] UNSPECIFIED 2012 ed [facility] FOR[facility] INFLUENZA, complet [place] UNSPECIFIED 2011 ed [facility] [place] [facility] TDAP complet boostrix, [place] 2011 ed [id number] [facility] A, HCS 07/02/14 PNEUMOCOCCAL, 04/25/ 109 complet Temi ck lot [place] UNSPECIFIED 2011 ed [id number] O [facility] FORMULATION exp HC S 07/12/13 INFLUENZA, complet [place] UNSPECIFIED 2010 ed [facility] INFLUENZA, complet [place] UNSPECIFIED 2009 ed [facility] NOVEL complet [place] INFLUEN[place]-H1N 2008 ed [facility] -, ALL HCS FORMULATIONS INFLUENZA, complet [place] UNSPECIFIED 2008 ed [facility] INFLUENZA complet [place] (HISTORICAL) 2006 ed [facility] TD(ADULT) complet [place] UNSPECIFIED 2002 ed [facility] Encounters Combined list of: 1) Encounters from Department of Veterans Affairs facilities going back up to the last 18 months. 2) Encounters from the Department of Defense facilities going back up to 280 months. Location Location Encounter Encounter Reason Attending ADM DC Stat us Disposition Source Details Type Number For Provider Date Date Visit Outpatient [id number] GERALDINE HURST 01/10 [place] Encounter [id number] [facility] [place] 08154-1.61 Diagnos ANTHONY ALVAREZ 03/27 [place] PHONE CALL [id number] is: G [facility] 5-10 MIN ICD-10- HCS CM Z71.89 Other specifi ed head counselor ing<br/ >with Provide r Comment s: Other specifi ed head counselor ing Outpatient [id number] 04/09 [place] [id number] [facility] [id number] Diagnos JAIME, 04/16 [place] Encounter [id number] is: ILIA L O [facility] ICD-10- HCS CM R52 Pain, unspeci fied
with Provide r Comment s: Chronic pain (SCT [id number] 1) Outpatient [id number] 06/15 [place] Encounter [id number] [facility] PRO 79426-8.61 Diagnos GEMINI PADGETT 12/13 [place] PHONE CALL [id number] is: LEATHA D [facility] 11-20 MIN ICD-10- HCS CM Z71.89 Other specifi ed head counselor ing<br/ >with Provide r Comment s: Other specifi ed head counselor ing Outpatient [id number] 02/19 [place] Encounter [id number] [facility] Outpatient [id number] FANNY GUPTA 04/18 [place] Encounter [id number] ISTEN L [facility] Social History Combined list of available smoking, tobacco, and other social [facility]. Social History Type Response Date Comment Source Tobacco smoking status [place] QUIT 15 YRS 07/28/2019 [facility] NHIS OR MORE History of tobacco use [place] FORMER USER 07/28/2019 [facility] History of tobacco use FORMER TOBACCO USE >1Y 11/20/2017 [facility] <7Y History of tobacco use CURRENT TOBACCO USER 12/27/2014 [facility] History of tobacco use CURRENT TOBACCO USER 01/21/2014 [facility] History of tobacco use FORMER TOBACCO USER 7Y 09/07/2007 [facility] OR GREATER
--- OUTSIDE RECORDS SUMMARY | 2022-06-26 08:13 | XMS_ITS | Encounter Summary ---
:1950 Author Organization [facility] Address [address] [place] [id number] Support Name Relationship Address Phone RAFAELA MCNAMARA Unavailable [address] [facility] [place] [address] RAFAELA MCNAMARA Unavailable [address] [facility] [phone] [place] [address] Insurance Providers: All historical and current Section [...] MEDICARE MEDICARE PART Mar 25, PART B [id number] NARDA NICOLE P ATIENT (WNR) (M) B 2014 [id number] [place] MEDICARE MEDICARE PART Sep 25, PART A [id number] BONNIE,TI P ATIENT (WNR) (M) A 2014 [id number] [phone] [place] Selected Encounter This section includes the information on record at [place] for the Encounter. Date/Time Encounter Type Encounter Reason Provider Source Description Dec 13, 2021 HC PRO PHONE TELEPHONE TRIAGE ICD-10-CM Z71.89 CRUZ PADGETT 12:51 PM CALL 11-20 MIN Other specified D counseling with Provider Comments: Other specified counseling IHE Encounter Template Text not used by [place] Assessments - Encounter Diagnoses This section includes the primary and secondary diagnoses documented for the Encounter. Date/Time Primary/Secondary Diagnosis Name Provider Source Diagnosis Dec 13, 2021 PRIMARY Other specified JORGE PADGETT [place] 12:51 PM counseling D [facility]CS Plan of Treatment: Future Appointments (+ 6 months) and Future Tests (+/- 45 days) The Plan of Treatment section includes future care activities for the patient [facility] [place] [facility] This section includes future appointments and future orders which are active, pending orscheduled.Future Appointments This section includes appointments that were scheduled to occur 6 months from the date of the Encounter, up to a maximum of 20 appointments. The data comes from all [facility]. Appointment Date/Time Appointment Type Appointment Facili ty Name Mar 06, 2022 12:30 PM AMBULATORY - NONE [facility] Apr 18, 2022 01:58 PM [facility]ATORY - [facility] Active, Pending, and Scheduled Orders This section includes a listing of several types of active, pending, and scheduled orders, including clinic medications orders, diagnostic test orders, procedure orders and consult orders; where the start date of the order is 45 days before the date of the Encounter or 45 days after the date of the Encounter. The data comes from all [facility]. Test Date/Time Test Type Test Details Facility Name Dec 14, 2021 12:00 AM Laboratory - TSH W/REFLEX TO FREE T4 [facility] Chemistry Order PLASMA SP Dec 14, 2021 12:00 AM Laboratory - HEMOGLOBIN A1C BLOOD SP [facility] Chemistry Order Dec 14, 2021 12:00 AM Laboratory - LIPID PANEL,NON-FASTING [facility] Chemistry Order PLASMA SP Dec 14, 2021 12:00 AM Laboratory - COMPREHENSIVE METABOLIC [facility] Chemistry Order PANEL+MG PLASMA SP ONCE Dec 14, 2021 12:00 AM Laboratory - [facility]LOOD SP [facility] Chemistry Order Social History: Smoking Status (Most current) and Tobacco Use (All prior to encounter date) This section includes the most current, and the historical, smoking and tobacco-related health factors from the [facility] where the Encounter took place.Current Smoking Status This section includes the most current smoking, or tobacco-related health factor, from the [facility] where the Encounter took place. Date/Time Current Smoking Status Comment Facility Jul 28, 2019 10:43 AM [place]-TOBACCO QUIT [address] [facility] Tobacco Use History This section includes a history of the smoking, or tobacco- related health factors, that were collected on or before the date of the Encounter. The data comes from the [place] facility where the Encounter took place. Date/Time Smoking Status/Tobacco Use Comment [facility] Jul 28, 2019 10:43 AM [place]-TOBACCO QUIT [address] [facility] Nov 20, 2017 12:45 PM FORMER TOBACCO USE >1Y <7Y [facility] December 27, 2014 08:09 AM CURRENT TOBACCO USER DANIELE SINGH [facility] January 21, 2014 02:54 PM [facility] Sep 07, 2007 10:58 AM FORMER TOBACCO USER [address]Y [address] [facility] Encounter Notes: All associated encounter notes This section contains the clinical notes associated to the Encounter. Date/Time Encounter Note(s) Provider Source Dec 13, 2021 12:51 PM NURSING TELEPHONE ENCOUNTER NOTE: ME ARABELLA PADGETT [facility] LOCAL TITLE: TELEPHONE CARE NURSE TRIAGE STANDARD TITLE: NURSING TELEPHONE ENCOUNTER NOTE DATE OF NOTE: DEC 13, 2021@12:51:44 ENTRY DATE: DEC 13, 2021@13:04:31 AUTHOR: JORGE PADGETT EXP COSIGNER: URGENCY: STATUS: COMPLETED TELEPHONE CARE NURSE TRIAGE Has ADDENDA Chief Complaint: Dizziness - Vertigo The following identifiers were used to verify th is patient: . SSN. Comments: Clinical Contact/Call Center Coronavirus Disease 2019 (COVID-19) Screen, sravani. December 2020 DIAGNOSIS AND TESTING STATUS: Has [place] been diagnosed with COVID-19: () Yes* Date: (continue screening) (X) No (Continue Screening) Comment(s): Is waiting for COVID-19 test results: () Yes (Continue Screening) (X) No (Continue Screening) Comment: SCREEN: Signs and Symptoms: a. Fever or chills: () Yes Check all that apply: () Fever () Chills (X) No Comment(s): b. New or worsening cough or shortness of breat h: () Yes Check all that apply: () Cough () Shortness of breath (Dyspnea) (X) No Comment(s): c. Any cold or flu-like symptoms: () Yes Check all that apply: () Cold like symptoms () Runny Nose (Rhinorrhoea) () Sore Throat () Flu-like symptoms () Fatigue () Muscle Pain (Myalgia) (X) No Comment(s): d. New onset diarrhea, nausea or vomiting: () Yes Check all that apply: () Diarrhea () Nausea () Vomiting (X) No Comment(s): e. New onset headache, loss of taste or loss of smell () Yes Check all that apply: () Headache () Loss of taste () Loss of smell (X) No Comment(s): EXPOSURE: Exposure (within 6 feet for more than 15 minute s) in the last two weeks (14 days) to someone with known or myke pected case of COVID-19: () Yes (X) No Comment(s): SCREEN RESULT: Any symptom or exposure= positiv e screen () POSITIVE SCREEN: Patient has a Positive symp rachell and/or exposure. Follow- up required. (X) NEGATIVE SCREEN NURSES NOTES PATIENT CONCERN/DURATION/ONSET: calls with concern of vertigo symptoms for the past 2 weeks. Describes dizziness with t urning his head, noted ear popping recently, and will g et a hot flushed feeling prior to dizziness. States this feels similar to previous vertigo episodes Denies nausea or vomiting, no headache or migraine. No john st pain or shortness of breath. No fever or chills. 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 -No appointments available within recomm ended time frame, alerting PACT for f/ u. -Advised ER for worsening s/s as discussed with . agrees with and could verbalize plan of care Best contact for is [phone] (Verifi ed). (Caller could accurately sum marize the agreed upon plan of care as discussed in the education log portion of this note.) Per policy, automated recommendations for an zee ointment indicates an interaction (virtual or in-person) with the care team. Author: JORGE PADGETT Caller Area: *[facility] The patient, SHELLIE NICOLE ([phone]) called the call center. Caller Response: APPT GREATER THAN 24 HOURS Class Code: Other specified counseling. Contact Advised to contact Telephone Care for any questions, concerns, new or worsening symptoms; services available 17/03. Evaluation/Management Code: HC PRO PHONE CALL 20 MIN ([id number]). Starting at: 12/13/2021 @ 12:51:44 PM Ending at: 12/13/2021 @ 1:03:35 PM Length: 11 minutes. Nurse Notes: Protocol Used: Dizziness - Vertigo Protocol-Based Disposition: See PCP or Video Vis it within 3 Days Positive Triage Question: * [1] MODERATE dizziness (e.g., vertigo; feels v enriqueta unsteady, interferes with normal activities) AND [2] has been evaluated by physician for this Care Advice Discussed: * Another Adult Should Drive - It is better and safer if another adult drive s instead of you. * Fall Prevention - Sit at side of bed for several minutes before standing up. Stand up slowly. - Avoid sudden movements of head. * Reasons To Call Back - Severe headache occurs - Weakness develops in an arm or leg - Unable to walk without falling - You become worse. Negative Triage Questions: * [1] Weakness (i.e., paralysis, loss of muscle strength) of the face, arm or leg on one side of the body AND [2] sudden onset AND [3] present now * [1] Numbness (i.e., loss o f sensation) of the face, arm or leg on one side of the body AND [2] sudden onset AND [3] present no w * [1] Loss of speech or garb led speech AND [2] sudden onset AND [3] present now * Difficult to awaken or acting confused (e.g., disoriented, slurred speech) * Sounds like a life-threatening emergency to [facility] * SEVERE dizziness (vertigo) (e.g., unable to wa lk without assistance) * Severe headache (e.g., excruciating) (Exceptio n: similar to previous migraines) * [1] Dizziness (vertigo) present now AND [2] on e or more STROKE RISK FACTORS (i.e., hypertension, diabetes, prior stroke/TIA, heart attack) (Exception: prior physician evaluation for this AND no diffe rent/worse than usual) * [1] Dizziness (vertigo) present now AND [2] ag e > 59 (Exception: prior physician evaluation for this AND no different/w orse than usual) * [1] Weakness (i.e., paralysis, loss of muscle strength) of the face, arm / hand, or leg / foot on one side of the b ferny AND [2] sudden onset AND [3] brief (now gone) * [1] Numbness (i.e., loss o f sensation) of the face, arm / hand, or leg / foot on one side of the body AND [2] sudden onset AND [3] brief (now gone) * [1] Loss of speech or garbled speech A ND [2] sudden onset AND [3] brief (now gone) * Loss of vision or double vision (Exception: si milar to previous migraines) * Patient sounds very sick or weak to the triage r * Taking a medicine that could cause dizziness ( e.g., phenytoin [Dilantin], carbamazepine [Tegretol], primidone [Mysoline]) * [1] MODERATE dizziness (e.g., vertigo; feels v enriqueta unsteady, interferes with normal activities) AND [2] has NOT been evaluate d by physician for this * [1] NO dizziness now AND [2] one or more strok e risk factors (i.e., hypertension, diabetes, prior stroke/TIA/heart a ttack) * [1] NO dizziness now AND [2] age > 59 * Earache * Vomiting occurs with dizziness Patient's Email Address: [facility] Provider Info: [facility] ([phone] PACT: [facility] PACT [facility] (Focus: [facility]om[facility]) Designated Pcp: ILIA FREEDMAN PHONE :[phone] PAGER:[phone] Liquid Waste Treatment Plant Operator: JOHN MARKS PHONE:[phone] Clinical Associate: ANABEL ANDERSON PHONE :[phone] Retail Pharmacy Manager: QASIM CROWE EMILEE:[phone] PACT Clinical Pharmacist: RAFA CAMPOS EMILEE:[id number] Clinical POC: Administrative POC: Type of call: *TC SYMPTOM APPT. /marci/ JORGE PADGETT, RN,BSN VISN 23 DAYTIME GI PHYSICIAN Signed: 12/13/2021 13:04 Receipt Acknowledged By: 12/13/2021 15:16 /marci/ Ilia Freedman MD Physician * AWAITING SIGNATURE * JOHN MARKS 12/13/2021 ADDENDUM STATUS: COMPLETED Await pact mechanic's assistant. Agree with in person asses sment if RN team feels is warranted. Also, if classic BPV is sugge sted, can send to physical therapy for maneuvers /marci/ Ilia Freedman MD Physician Signed: 12/13/2021 15:17 Receipt Acknowledged By: * AWAITING SIGNATURE * JOHN MARKS 12/13/2021 ADDENDUM STATUS: COMPLETED Gets hot, flushed out of now where, even when sitting down, then dizziness comes on when moving afterward, but not before. States when sitting at light cannot follow train going by without feeling dizzy. Fee ls like ears are always plugged. Had a vertigo event Friday that sent him to bed for several hours. Did take some OTC meclizine and feeling better a t this time. /marci/ JESUS KRAUS RN STAFF NURSE Signed: 12/13/2021 16:59 Receipt Acknowledged By: 12/14/2021 11:50 /marci/ Ilia Freedman MD Physician 12/14/2021 ADDENDUM STATUS: COMPLETED RTC ordered for F2F appt as he has not been seen here in well over 2 years. Labs ordered and MSA cced to note to arrange. In meantime, can try PT for vertigo brenna uvers if he feels that would help him. /macri/ Ilia Freedman MD Physician Signed: 12/14/2021 11:53 Receipt Acknowledged By: 12/14/2021 12:13 /marci/ CLEOPATRA PARSON RN Pact Liquid Waste Treatment Plant Operator for JOHN MARKS 12/14/2021 14:22 /marci/ QASIM CROWE ADVANCED NUTRITION DIRECTOR 12/14/2021 ADDENDUM STATUS: COMPLETED I phoned pt but no answer. I had to leave a voice mail with PCP recommendations and I provided [facility] phone arin herrmann /marci/ CLEOPATRA PARSON RN Pact Liquid Waste Treatment Plant Operator Signed: 12/14/2021 12:14 12/14/2021 ADDENDUM STATUS: COMPLETED Called Patient to make PCP appointment, was in t he middle of making the appointment and patient ask about what they do h ere about Covid. Manager French told patient that he will have to wear a mask and he said no thank you and hung up on me. Writier called back and said we go discounted. H e told me again he did not to wear a mask and I ask then you want me to cancel the apointment I just made. Patient said yes and said goodbye and hung up. I canceled 12/31/21 appointment I just made. /marci/ QASIM CROWE ADVANCED NUTRITION DIRECTOR Signed: 12/14/2021 14:25 Receipt Acknowledged By: * AWAITING SIGNATURE * ILIA FREEDMAN * AWAITING SIGNATURE * JOHN MARKS
[2022-06-26 14:16] LABS: Chloride* 101 mmol/L (96-114); Sodium* 140 mmol/L (135-149)
[2022-06-26 14:17] LABS: Potassium* 4.5 mmol/L (3.6-5.1)
[2022-06-26 14:19] LABS: Creatinine* 0.9 mg/dL (0.5-1.5); Estimated Glomerular Filt Rate 91 ml/min
[2022-06-26 14:20] LABS: Blood Urea Nitrogen* 12 mg/dL (7-30); Calcium* 9.3 mg/dL (8.4-10.6); Carbon Dioxide* 28 mmol/L (20-32); Glucose* 119 mg/dL (60-115)
== END 2022-06-26 08:07 | disposition home or self-care (01) ==
LOC: LONREF 08:08
PROVIDERS: Visit Provider Family Medicine
DX: Z01.818 Encounter for other preprocedural examination (principal)
CPT/HCPCS: 80048

== ENCOUNTER 2022-07-16 13:52 | Outpatient (CLI) | payer MEDICARE, SELFPAY ==
[2022-07-16 17:55] LABS: Uric Acid* 5.4 mg/dL (2.2-8.4)
[2022-07-16 17:58] LABS: C Reactive Protein* 5.2 mg/dL (0.5-1.0)
[2022-07-18 18:46] LABS: Rheumatoid Factor <10 IU/mL (0-14)
== END 2022-07-16 13:53 | disposition home or self-care (01) ==
PROVIDERS: PCP Family Medicine; Visit Provider Family Medicine
DX: M79.672 Pain in left foot (principal)
CPT/HCPCS: 84550; 86140; 86431